=== PATIENT | female | born 1970 | race Caucasian/White ===

== ENCOUNTER 2016-09-15 16:52 | Emergency (ER) | payer MEDICAID ==
[2016-08-07 10:12] VITALS: BMI 20.6
[~2016-09-15 16:52] MED LIST: AMBIEN10 MG PO; AMOXICILLIN875 MG PO; BAYER CHEWABLE81 MG PO; COMBIVENT RESPIM4 GM INH; ELIQUIS5 MG PO; FLORAJEN3 CAPS460 MG PO; HYDROCODON-ACE1 EAC7 PO; HYDROCODONE-APA1 TAB PO; IBUPROFEN800 MG PO; MIDODRINE HCL5 MG PO; MIRALAX17 GM PO; PERCOCET 5-3251 TAB PO; PLAVIX75 MG PO; PROTONIX40 MG PO; PROZAC20 MG PO; REQUIP0.25 MG; REQUIP1 MG PO; RESTORIL15 MG PO; RESTORIL7.5 MG PO; SOMA350 MG; SOMA350 MG PO; SYMBICORT 16010.2 GM INH; VESICARE5 MG PO; [UNRECOGNIZED DRUG - OTHER]
[2016-09-15 18:07] LABS: BASOPHILS 0.7 % (0.0-2.0); EOSINOPHILS 2.4 % (0-7); HEMATOCRIT 46.7 % (36.0-48.0); HEMOGLOBIN 15.4 g/dL (12-16); IMMATURE GRANULOCYTES 0.2 % (0-5); LYMPHOCYTES 37.7 % (15-50); MCH 30.7 pg (26.0-34.0); MCV 93.2 fL (80.0-100.0); MEAN PLATELET VOLUME 10.9 fL (7.4-10.4); MONOCYTES 8.4 % (2-11); NEUTROPHILS 50.6 % (40-80); PLATELET COUNT 180 10x3/uL (130-400); RBC 5.01 10x6/uL (4.00-5.40); WBC 5.9 10x3/uL (4.8-10.8)
[2016-09-15 18:19] LABS: ALBUMIN 3.3 g/dL (3.4-5.0); ALKALINE PHOSPHATASE 40 U/L (46-116); ALT (SGPT) 18 U/L (10-68); BILIRUBIN - TOTAL 0.32 mg/dL (0.2-1.3); CALC OSMOLALITY 280 mosm/kg (275-300); CALCIUM 9.2 mg/dL (8.5-10.1); CARBON DIOXIDE 33.7 mmol/L (21.0-32.0); CHLORIDE - SERUM 105 mmol/L (98-107); CREATININE - SERUM 0.8 mg/dL (0.6-1.3); GLUCOSE 93 mg/dL (74-106); POTASSIUM - SERUM 4.2 mmol/L (3.5-5.1); SODIUM 142 mmol/L (136-145); UREA NITROGEN 8 mg/dL (7-18); eGFR NON AFRICAN AMERICAN 82 mL/min (90-120)
[2016-09-15 18:22] LABS: CREATINE KINASE 78 UL (21-215); TROPONIN-I < 0.017 ng/mL (0.000-0.060)
== END 2016-09-15 18:50 | disposition home or self-care (01) ==
LOC: D.ER 16:52
PROVIDERS: Emergency Medicine
DX: I73.9 Peripheral vascular disease, unspecified (principal)

== ENCOUNTER → 2016-09-21 12:58 | Outpatient (CLI) | payer MEDICAID ==
[2016-08-07 10:12] VITALS: BMI 20.6
== END | disposition home or self-care (01) ==
LOC: D.CT 12:58
DX: I73.9 Peripheral vascular disease, unspecified (principal)

== ENCOUNTER 2016-09-29 13:35 | Emergency (ER) | payer MEDICAID ==
[2016-08-07 10:12] VITALS: BMI 20.6
[2016-09-29 14:22] LABS: BASOPHILS 0.4 % (0.0-2.0); EOSINOPHILS 0.9 % (0-7); HEMATOCRIT 49.4 % (36.0-48.0); HEMOGLOBIN 16.7 g/dL (12-16); IMMATURE GRANULOCYTES 0.1 % (0-5); LYMPHOCYTES 32.9 % (15-50); MCHC 33.8 g/dL (31.0-37.0); MCV 91.7 fL (80.0-100.0); MEAN PLATELET VOLUME 10.8 fL (7.4-10.4); MONOCYTES 6.9 % (2-11); NEUTROPHILS 58.8 % (40-80); PLATELET COUNT 214 10x3/uL (130-400); RBC 5.39 10x6/uL (4.00-5.40); WBC 6.8 10x3/uL (4.8-10.8)
[2016-09-29 14:39] LABS: ALKALINE PHOSPHATASE 54 U/L (46-116); ALT (SGPT) 27 U/L (10-68); BILIRUBIN - TOTAL 0.61 mg/dL (0.2-1.3); CALC OSMOLALITY 275 mosm/kg (275-300); CALCIUM 10.1 mg/dL (8.5-10.1); CARBON DIOXIDE 29.9 mmol/L (21.0-32.0); CHLORIDE - SERUM 98 mmol/L (98-107); GLUCOSE 109 mg/dL (74-106); POTASSIUM - SERUM 4.8 mmol/L (3.5-5.1); PROTEIN - SERUM 8.3 g/dL (6.4-8.2); SODIUM 137 mmol/L (136-145); UREA NITROGEN 15 mg/dL (7-18); eGFR NON AFRICAN AMERICAN 63 mL/min (90-120)
[2016-09-29 14:50] LABS: CHOL - HDL RATIO 4.6 ratio (2.3-4.1); CHOLESTEROL, TOTAL 208 mg/dL (0-200); CKMB 0.3 U/L (0.0-3.6); CREATINE KINASE 44 UL (21-215); HDL CHOLESTEROL 45 mg/dL (32-96); LDL CHOLESTEROL 133 mg/dL (0-100); TRIGLYCERIDE 153 mg/dL (30-200)
[2016-09-29 14:51] LABS: TROPONIN-I < 0.017 ng/mL (0.000-0.060)
== END 2016-09-29 16:52 | disposition home or self-care (01) ==
LOC: D.ER 13:35
PROVIDERS: Emergency Medicine
DX: R07.81 Pleurodynia (principal); Z85.118 Personal history of other malignant neoplasm of bronchus and lung; I73.9 Peripheral vascular disease, unspecified; Z86.73 Personal history of transient ischemic attack (TIA), and cerebral infarction without residual deficits

== ENCOUNTER → 2016-10-01 16:38 | Outpatient (CLI) | payer MEDICAID ==
[2016-08-07 10:12] VITALS: BMI 20.6
== END | disposition home or self-care (01) ==
LOC: D.MAMMO 16:00
DX: Z12.31 Encounter for screening mammogram for malignant neoplasm of breast (principal)

== ENCOUNTER 2016-10-02 22:26 | Emergency (ER) | payer MEDICAID ==
[2016-08-07 10:12] VITALS: BMI 20.6
== END 2016-10-03 01:40 | disposition home or self-care (01) ==
LOC: D.ER 22:26
DX: I87.2 Venous insufficiency (chronic) (peripheral) (principal); Z86.73 Personal history of transient ischemic attack (TIA), and cerebral infarction without residual deficits; F17.200 Nicotine dependence, unspecified, uncomplicated

== ENCOUNTER 2016-10-03 06:59 | Outpatient (CLI) | payer MEDICAID ==
[~2016-10-03] VITALS: Ht 172.7 cm; Wt 53.6 kg
--- NOTE | ~2016-10-03 | HEMODYNAMI ---
PATIENT:TEMO CLEMENTE MEDICAL RECORD: [id number] : 70 LOCATION:[facility] ADMISSION DATE: 10/03/16 Generatedon:10/03/201611:03 Patient name: TEMO CLEMENTE Patient #: [id number] SSN: : 1970 Date of study: 10/03/2016 Page: Of Hemodynamic Procedure Report Patient Data Patient Demographics Procedure consent was obtained First Name: TEMO Gender: Female Last Name: CHYNA : 1970 [facility] Initial: A Age: 46 year(s) Patient #: [id number] Race: Unknown Additional ID: [id number] Contact details Address: [address] [place] [address] State: [place] City: [facility] Zip code: [address] Past Medical History Allergies: No known allergies Admission Admission Data Admission Date: 10/03/2016 Admission Time: 6:59 Weight (lbs.): 118 Weight (kg.): 53.52 Procedure Procedure Types Cath Procedure Peripheral Cath Diagnostic Procedure Cath Peripheral Procedure Description Procedure Date Procedure Date: 10/03/2016 Procedure Start Time: 9:39 Procedure Staff Name Function Arie Fink MD Performing Physician Philippe Ortega RT Scrub Mari Fowler RN Nurse Nallely Sims RT Auto Body Repair Estimator Nallely Sims RT Monitor Procedure Data Cath Procedure Fluoroscopy Diagnostic fluoroscopy Total fluoroscopy Time: 6.8 time: 6.8 min min Diagnostic fluoroscopy Total fluoroscopy dose: dose: 778.69 mGy 778.69 mGy Contrast Material Contrast Material Type Amount (ml) Isovue 300 175 Entry Location Entry Primary Successful Side Size Upsize Upsize Entry Closure Succes sful Closure Location (Fr) 1 (Fr) 2 (Fr) Remarks Device Remarks Femoral Right 5 Fr artery Femoral Exoseal artery Diagnostic catheters Device Type Used For End Catheter Placement Merit ULTRA BOLUS FLUSH 5Fr 65CM catheter Procedure Medications Medication Administration Route Dosage Oxygen NC 3 l/min Lidocaine 1% added to field 20 Heparin Flush Bag added to field 3 bags (1000units/500ml NS) Versed I.V. 1 mg Fentanyl I.V. 50 mcg Benadryl I.V. 50 mg Versed I.V. 1 mg Fentanyl I.V. 50 mcg Heparin Bolus I.V. 5000 units Versed I.V. 0.5 mg Fentanyl I.V. 25 mcg Versed I.V. 0.5 mg Fentanyl I.V. 25 mcg Versed I.V. 0.5 mg Fentanyl I.V. 25 mcg Hemodynamics Rest Heart Rate: 61 (bpm) Pressure Samples Time Site Value (mmHg) Purpose Heart Use Rate(bpm) 10:36 RCF 158/64(97) Snapshot 48 Snapshots Pre Cath Intra NCS Post Cath Vital Signs Time Heart Resp SPO2 NIBP (mmHg) Rhythm Pain Sedation Rate (ipm) (%) Status Level (bpm) 9:12:08 59 17 100 160/79(114) NSR 0 (11) 10(A) , No pain 9:16:28 53 19 100 162/77(128) NSR 0 (11) 10(A) , No pain 9:20:48 56 18 100 163/78(120) NSR 0 (11) 10(A) , No pain 9:26:22 67 16 100 142/70(108) NSR 0 (11) 10(A) , No pain 9:30:38 61 17 99 140/68(92) NSR 0 (11) 10(A) , No pain 9:34:56 54 18 99 125/57(86) NSR 0 (11) 10(A) , No pain 9:39:08 55 16 99 122/60(83) NSR 0 (11) 10(A) , No pain 9:43:20 53 19 99 120/57(75) NSR 0 (11) 9(A) , No pain 9:47:30 50 19 99 127/59(86) NSR 0 (11) 9(A) , No pain 9:51:42 50 19 100 133/64(84) NSR 0 (11) 9(A) , No pain 9:55:58 49 18 100 128/59(82) NSR 0 (11) 9(A) , No pain 10:00:10 54 18 100 135/61(84) NSR 0 (11) 9(A) , No pain 10:04:26 53 19 100 126/56(84) NSR 0 (11) 9(A) , No pain 10:08:38 48 19 100 131/58(87) NSR 0 (11) 9(A) , No pain 10:12:52 52 19 100 139/57(93) NSR 0 (11) 9(A) , No pain 10:17:05 48 19 100 142/67(116) NSR 0 (11) 9(A) , No pain 10:21:22 51 18 100 153/67(120) NSR 0 (11) 9(A) , No pain 10:26:33 47 16 100 147/61(86) NSR 0 (11) 9(A) , No pain 10:30:53 48 17 100 136/62(107) NSR 0 (11) 9(A) , No pain 10:35:05 48 17 100 152/70(85) NSR 0 (11) 9(A) , No pain 10:39:25 49 16 100 153/63(105) NSR 0 (11) 9(A) , No pain 10:43:43 50 18 100 152/72(111) NSR 0 (11) 9(A) , No pain 10:48:01 51 22 100 152/71(93) NSR 0 (11) 9(A) , No pain 10:52:19 47 27 100 162/65(109) NSR 0 (11) 9(A) , No pain 10:56:41 45 20 100 162/70(127) NSR 0 (11) 9(A) , No pain 11:01:06 46 13 100 155/65(98) NSR 0 (11) 9(A) , No pain Medications Time Medication Route Dose Verified Delivered Reason Notes Effe ctiveness by by 9:15:11 Oxygen NC 3 Mari Mari used for l/min Malcolm Malcolm l tacker RN 9:15:19 Lidocaine 1% added 20ml Mari Mari used for to vial Malcolm Malcolm procedure field RN RN 9:15:31 Heparin Flush added 3 Mari Mari used for Bag to bags Malcolm Malcolm procedure (1000units/500ml field RN RN NS) 9:35:09 Benadryl I.V. 50 mg Mari Mari Per Malcolm Malcolm physician RN RN 9:37:52 Versed I.V. 1 mg Mari Mari for Malcolm Malcolm sedation RN RN 9:38:00 Fentanyl I.V. 50 Mari Mari for mcg Malcolm Malcolm sedation RN RN 9:43:33 Versed I.V. 1 mg Mari Mari for Malcolm Malcolm sedation RN RN 9:43:38 Fentanyl I.V. 50 Mari Mari for mcg Malcolm Malcolm sedation RN RN 9:59:45 Heparin Bolus I.V. 5000 Mari Mari Per units Malcolm Malcolm physician RN RN 10:01:10 Versed I.V. 0.5 Mari Mari for mg Malcolm Malcolm sedation RN RN 10:01:19 Fentanyl I.V. 25 Mari Mari for mcg Malcolm Malcolm sedation RN RN 10:35:28 Versed I.V. 0.5 Mari Mari for mg Malcolm Malcolm sedation RN RN 10:35:32 Fentanyl I.V. 25 Mari Mari for mcg Malcolm Malcolm sedation RN RN 10:48:32 Versed I.V. 0.5 Mari Mari for mg Malcolm Malcolm sedation RN RN 10:48:36 Fentanyl I.V. 25 Mari Mari for mcg Malcolm Malcolm sedation RN management manager Log Time Note 9::17 Patient Weight : 118 lbs 9:03:03 Time tracking: Regular hours 9:03:12 Plan of Care:Hemodynamics will remain stable., Cardiac rhythm will remain stable., Comfort level will be maintained., Respiratory function will remain adequate., Patient/ family verbilizes understanding of procedure., Procedure tolerated without complication., Recovers from procedure without complications.. 9:03:14 Correct patient and procedure confirmed by team. 9:03:17 Signed procedure consent form obtained from patient. 9:03:26 Patient received from Outpatients to Alert and oriented. Tansferred to table in Supine position. 9:03:28 - 9:05:22 H&P Date Dictated: 10/03/2016 Within 30 days and on chart.. 9:05:25 Pre-procedure instructions explained to patient. 9:05:26 Pre-op teaching completed and patient verbalized understanding. 9:05:30 Family unavailable. 9:05:33 Patient NPO since Midnight. 9:05:50 Is the patient allergic to Iodine/contrast media? No. 9:05:56 Is patient on blood thinner?Yes 9:05:58 Patient diabetic? No. 9:06:01 - 9:06:04 ----Pre-sedation anethsthesia assessment.---- 9:06:08 Previous problem with sedation/anesthesia? No ? 9:06:12 Snore? Yes 9:06:15 Sleep apnea? No 9:06:18 Deviated septum? No 9:06:19 Opens mouth fully? Yes 9:06:25 Sticks out tongue? Yes 9:06:35 Airway obstruction? Yes lung ca 1 yr ago 9:06:42 Dentures? No ? 9:06:44 - 9:11:04 Vital chart was started 9:15:11 Oxygen 3 l/min NC was given by Mari Fowler RN; used for procedure; 9:15:19 Lidocaine 1% 20ml vial added to field was given by Mari Fowler RN; used for procedure; 9:15:31 Heparin Flush Bag (1000units/500ml NS) 3 bags added to field was given by Mari Fowler RN; used for procedure; 9::14 Pre procedure: right dorsailis pedis pulse Doppler 9:23:19 Pre procedure: left dorsailis pedis pulse Doppler 9:23:25 Pre procedure: right posterior tibial pulse Doppler 9:23:30 Pre procedure: left posterior tibial pulse Doppler 9:23:40 IV patent on arrival in left hand with 0.9% NaCl at KVO. 9:23:53 Right groin area was prepped with chlora-prep and draped in sterile fashion 9::57 Left groin area was prepped with chlora-prep and draped in sterile fashion 9::59 - 9:24:02 ECG and BP/O2 sat monitors applied to patient. 9:24:06 Baseline sample Acquired. 9::14 Full Disclosure recording started 9:24:16 - 9:24:51 Use device set IR Diagnostic 9:24:53 Sterile Angiographic Pack opened to sterile field. 9:24:54 Bag Decanter opened to sterile field. 9:24:55 Acist Manifold opened to sterile field. 9:24:56 Acist Hand Control opened to sterile field. 9:24:59 Acist Syringe opened to sterile field. 9:25:14 Cook BENTSON 145cm guide wire opened to sterile field. 9:25:16 St Kalpesh 5FR Sheath opened to sterile field. 9:25:17 Micropuncture VSI 4FR kit opened to sterile field. 9:35:01 Physician arrived 9:35:09 Benadryl 50 mg I.V. was given by Mari Fowler RN; Per physician; 9:36:12 --------ALL STOP TIME OUT------ 9:36:13 Final Timeout: patient, procedure, and site verified with staff and physician. All members of the team are in agreement. 9:36:39 Physical assessment completed. ASA score P 3 - A patient with severe systemic disease as per Arie Fink MD. 9:36:45 Sedation plan: IV Moderate Sedation Versed, Fentanyl 9:37:02 Munger Sci Amplatz Super Stiff 75CM guide wire opened to sterile field. 9:37:52 Versed 1 mg I.V. was given by Mari Fowler RN; for sedation; 9:38:00 Fentanyl 50 mcg I.V. was given by Mari Fowler RN; for sedation; 9:39:01 Procedure started. 9:39:10 Local anesthetic to right femoral artery with Lidocaine 1% by Arie Fink MD.INITIAL ACCESS ONLY 9:39:23 Arterial access obtained using ultrasound guidance. 9:40:30 A ITC ULTRA BOLUS FLUSH 5Fr 65CM catheter was advanced over the wire and used for . 9:42:59 Terumo 5FR ANGLED 65CM glide catheter opened to sterile field. 9:43:00 Terumo ANGLE 180L glide wire opened to sterile field. 9:43:11 Terumo TORQUE DEVICE PLASTIC .038 opened to sterile field. 9:43:33 Versed 1 mg I.V. was given by Mari Fowler RN; for sedation; 9:43:38 Fentanyl 50 mcg I.V. was given by Mari Fowler RN; for sedation; 9:44:48 A 5 Fr sheath was inserted into the Right Femoral artery 9:55:15 Cordis 6Fr Brite Tip 35cm Sheath opened to sterile field. 9:56:02 Cook ECKERT 260 guide wire opened to sterile field. 9:58:20 a zilver ptx stent was placed in the external iliac [id number] 9:58:45 BasixTOUCH Inflation Syringe opened to sterile field. 9:59:34 Inflation number: 1 A Cordis Powerflex Pro 5.0 x 40 x 80cm balloon was prepped and advanced across the Undefined1, then inflated to 12 LOLA for 0:11 (min:sec). 9:59:45 Heparin Bolus 5000 units I.V. was given by Mari Fowler RN; Per physician; 10:01:10 Versed 0.5 mg I.V. was given by Mari Fowler RN; for sedation; 10:01:19 Fentanyl 25 mcg I.V. was given by Mari Fowler RN; for sedation; 10:14:48 Cordis SMART 6 X 40 X 120 stent was deployed across Undefined2 . 10:35:28 Versed 0.5 mg I.V. was given by Mari Fowler RN; for sedation; 10:35:29 Zero performed for pressure channel P1 10:35:32 Fentanyl 25 mcg I.V. was given by Mari Fowler RN; for sedation; 10:35:44 Zero performed for pressure channel P1 10:37:56 Zero performed for pressure channel P1 10:39:17 Zero performed for pressure channel P1 10:42:46 Inflation number: 1 A Cordis Powerflex Pro 6.0 x 20 x 80cm balloon was prepped and advanced across the Undefined2, then inflated to 10 LOLA for 0:10 (min:sec). 10:48:32 Versed 0.5 mg I.V. was given by Mari Fowler RN; for sedation; 10:48:36 Fentanyl 25 mcg I.V. was given by Mari Fowler RN; for sedation; 10:49:05 Cordis 6Fr Exoseal opened to sterile field. 10:49:28 Sheath removed intact; hemostasis achieved with Exoseal to the Femoral artery. 10:49:28 A sheath was inserted into the Femoral artery 10:52:59 Procedure ended.(Physican Out) 10:53:22 Fluoroscopy time 06.80 minutes. 10:54:14 Fluoroscopy dose: 778.69 mGy 10:54:14 Flurop Dose total: 778.69 10:55:39 Contrast amount:Isovue 300 175ml. 10:56:09 Sharps counted by scrub and verified by R.N. 11:03:18 Procedure and supply charges have been captured, reviewed, submitted an d are correct. 11:03:37 Vital chart was stopped Intervention Summary Intervention Notes Time ActionType Lesion and Equipment Action# Pressure Duration Attributes Used 9:59:34 Inflate Undefined1 Cordis 1 12 00:11 balloon Powerflex Pro 5.0 x 40 x 80cm balloon 10:14:48 Deploy self Undefined2 Cordis 1 expanding SMART 6 X stent 40 X 120 stent 10:42:46 Inflate Undefined2 Cordis 1 10 00:10 balloon Powerflex Pro 6.0 x 20 x 80cm balloon Device Usage Item Name Manufacture Quantity Catalog Number Hospital Part Current Min imal Lot# / Charge Number Stock Stock Serial# Code Sterile Cardinal 1 [id number] 5 Angiographic Health Pack Bag Decanter Microtek 1 [id number] [id number] 63485 921453 5 Medical Inc. Acist Acist 1 62410 899629 161170 276467 5 Manifold Medical Systems Inc Acist Hand Acist 1 87904 409211 353964 658118 5 Control Medical Systems Inc Acist Syringe Acist 1 87660 527977 777256 601615 20 Medical Systems Inc Cook [facility] Cook Medical 1 [id number] 965715 339509 [id number] Kalpesh 5FR St Kalpesh 1 060499 743997 908110 5 [id number] Sheath Micropuncture VSI VASCULAR 1 7266V 697779 718608 5 VSI 4FR kit SOLUTIONS Munger Sci Munger 1 [id number] 422383 917477 008231 5 Amplatz Super Scientific Stiff 75CM guide wire Terumo 5FR Terumo 1 CG507 041651 962736 5 ANGLED 65CM glide catheter Terumo ANGLE Terumo 1 [id number] 435772 898054 5 180L glide wire Terumo TORQUE Munger 1 TD01 649556 407050 682567 5 DEVICE Scientific PLASTIC .038 Merit ULTRA Merit 1 [id number] 153991 519562 5 BOLUS FLUSH Medical 5Fr 65CM catheter Cordis 6Fr Cardinal 1 [id number] 686493 870430 496866 1 Brite Tip Health 35cm Sheath Cook [facility] Medical 1 [id number] 423622 237621 5 [id number] 260 guide wire BasixTOUCH Merit 1 [id number] 939621 264778 086043 5 [id number] Inflation Medical Syringe Cordis Cardinal 1 [id number] 102183 250893 447037 5 Powerflex Pro Health 5.0 x 40 x 80cm balloon Cordis SMART Cardinal 1 [id number] 358099 673173 984058 0 [id number] 6 X 40 X 120 Health stent Cordis Cardinal 1 [id number] 401863 014001 902301 5 Powerflex Pro Health 6.0 x 20 x 80cm balloon Cordis 6Fr Cardinal 1 EX600 602670 622835 964902 10 [facility] Signature Audit [place] Stage Time Signature Unsigned Intra-Procedure 10/03/2016 Nallely Sims 11:03:34 AM RT(R) Signatures Monitor : Nallely Sims RT Signature : Date : Time : [place] [id number] [place] [address]
[2016-10-03 07:37] VITALS: BP 138/66; Ht 172.7 cm; Wt 53.6 kg
[2016-10-03 07:54] LABS: BASOPHILS 0.5 % (0.0-2.0); HEMATOCRIT 43.1 % (36.0-48.0); HEMOGLOBIN 14.5 g/dL (12-16); IMMATURE GRANULOCYTES 0.1 % (0-5); LYMPHOCYTES 44.3 % (15-50); MCH 30.9 pg (26.0-34.0); MCHC 33.6 g/dL (31.0-37.0); MCV 91.9 fL (80.0-100.0); MEAN PLATELET VOLUME 10.8 fL (7.4-10.4); MONOCYTES 10.2 % (2-11); NEUTROPHILS 43.9 % (40-80); PLATELET COUNT 181 10x3/uL (130-400); RBC 4.69 10x6/uL (4.00-5.40); RDW 14.3 % (11.5-14.5); WBC 8.6 10x3/uL (4.8-10.8)
[2016-10-03 08:20] LABS: CALC OSMOLALITY 278 mosm/kg (275-300); CALCIUM 9.2 mg/dL (8.5-10.1); CARBON DIOXIDE 26.1 mmol/L (21.0-32.0); CHLORIDE - SERUM 105 mmol/L (98-107); CREATININE - SERUM 0.7 mg/dL (0.6-1.3); GLUCOSE 83 mg/dL (74-106); POTASSIUM - SERUM 4.5 mmol/L (3.5-5.1); SODIUM 140 mmol/L (136-145); UREA NITROGEN 14 mg/dL (7-18); eGFR NON AFRICAN AMERICAN > 90 mL/min (90-120)
[2016-10-03 08:34] LABS: APTT 29.7 SECONDS (22.8-39.4); INR 1.14 (0.85-1.17); PROTIME 14.5 SECONDS (11.6-15.0)
--- NOTE | 2016-10-03 12:30 | NUR ---
1115 RECEIVED PT FROM SPECIALS DEPARTMENT. PT IS ALERT, DENIES ANY C/O PAIN OR NAUSEA. PEDAL PULSES PALPABLE, BILAT. SMALL AREA OF BLOOD NOTED TO DRESSING AND THIS MARKED. NO HEMATOMA OR ACTIVE BLEEDING NOTED. SPRITE SERVED PER PT REQUEST. 1200 ROUNDS ON PT AND PT IS LAYING ON HER SIDE WITH LEGS BENT. REINSTRUCTED PT TO KEEP LEGS STRAIGHT AND HEAD TO PILLOW FOR THE THREE HOURS POST PROCEDURE. PT VERBALIZES UNDERSTANDING. NO HEMATOMA OR ACTIVE BLEEDING NOTED TO DRESSING.
--- NOTE | 2016-10-03 13:35 | NUR ---
1300 REPORT FROM GUDELIA HEIN R.N. PATIENT TOLD TO KEEP RT LEG STRAIGHT. AREA CIRCLED AT RIGHT GROIN AND HAS ICE PACK TO SITE PPX2 RT.
--- NOTE | 2016-10-03 14:22 | NUR ---
1415 ICE PACK REMOVED AND NO BLEEDING TO RT GROIN SITE,PPX2 RT.
--- NOTE | 2016-10-03 15:29 | NUR ---
1500 DRESSING TO RT GROIN NO BLEEDING PPX2 RT DRESSING WAS CHANGED BY RADIOLOGY NURSE EARLIER.
--- NOTE | 2016-10-03 15:30 | NUR ---
1510 IV DCD CATHETER INTACT. DISCHARGE INSTRUCTIONS GONE OVER AND RADIOLOGY NURSE WENT OVER DISCHARGE PAPERS EARLIER.
--- NOTE | 2016-10-03 15:31 | NUR ---
1522 TO HOME VIA W/C WITH FAMILY.
== END 2016-10-03 15:22 | disposition home or self-care (01) ==
LOC: D.OPS 06:59 → D.RAD 09:00 → D.OPS 09:00
PROVIDERS: General Practice
DX: I70.211 Atherosclerosis of native arteries of extremities with intermittent claudication, right leg (principal)

== ENCOUNTER 2016-10-11 10:34 | Emergency (ER) | payer MEDICAID ==
[2016-10-03 07:37] VITALS: BMI 17.9
[2016-10-11 11:15] LABS: BASOPHILS 0.5 % (0.0-2.0); EOSINOPHILS 2.3 % (0-7); HEMATOCRIT 47.2 % (36.0-48.0); HEMOGLOBIN 15.8 g/dL (12-16); IMMATURE GRANULOCYTES 0.2 % (0-5); LYMPHOCYTES 23.6 % (15-50); MCH 30.9 pg (26.0-34.0); MCHC 33.5 g/dL (31.0-37.0); MCV 92.2 fL (80.0-100.0); MONOCYTES 7.2 % (2-11); NEUTROPHILS 66.2 % (40-80); RBC 5.12 10x6/uL (4.00-5.40); RDW 14.2 % (11.5-14.5); WBC 10.5 10x3/uL (4.8-10.8)
[2016-10-11 11:20] LABS: PLATELET COUNT 248 10x3/uL (130-400)
[2016-10-11 11:39] LABS: APPEARANCE CLOUDY (CLEAR); BILIRUBIN NEGATIVE (NEGATIVE); COLOR YELLOW (YELLOW); GLUCOSE NEGATIVE (NEGATIVE); KETONE NEGATIVE (NEGATIVE); LEUKOCYTE ESTERASE 2+ (NEGATIVE); NITRITE NEGATIVE (NEGATIVE); PROTEIN NEGATIVE (NEGATIVE); SPECIFIC GRAVITY 1.025 (1.005-1.020); UROBILINOGEN NORMAL (NORMAL)
[2016-10-11 11:41] LABS: BACTERIA MANY /hpf (NONE SEEN); RED CELLS - URINE 0-5 /hpf (0-5); WHITE CELLS - URINE 25-50 /hpf (0-5); YEAST >1+ WITH HYPHAE /hpf (NONE SEEN)
[2016-10-11 11:43] LABS: ALBUMIN 3.8 g/dL (3.4-5.0); ANION GAP 10.8 mmol/L (8-16); BILIRUBIN - TOTAL 0.8 mg/dL (0.2-1.3); CALCIUM 9.4 mg/dL (8.5-10.1); CARBON DIOXIDE 32.8 mmol/L (21.0-32.0); POTASSIUM - SERUM 3.6 mmol/L (3.5-5.1); PROTEIN - SERUM 7.9 g/dL (6.4-8.2)
== END 2016-10-11 12:49 | disposition left against medical advice (07) ==
LOC: D.ER 10:34
PROVIDERS: Emergency Medicine
DX: R11.2 Nausea with vomiting, unspecified (principal)

== ENCOUNTER → 2016-11-02 13:32 | Outpatient (CLI) | payer MEDICAID ==
[2016-10-03 07:37] VITALS: BMI 17.9
[2016-11-02 17:06] LABS: CHOL - HDL RATIO 4.1 ratio (2.3-4.1); LDL-HDL RATIO 2.7 ratio (1.5-3.5)
== END | disposition home or self-care (01) ==
LOC: D.CT 13:32
PROVIDERS: General Practice
DX: I70.203 Unspecified atherosclerosis of native arteries of extremities, bilateral legs (principal)

== ENCOUNTER → 2016-11-16 12:18 | Outpatient (CLI) | payer MEDICAID ==
[2016-10-03 07:37] VITALS: BMI 17.9
== END | disposition home or self-care (01) ==
LOC: D.CT 10:30
DX: A31.0 Pulmonary mycobacterial infection (principal)

== ENCOUNTER → 2017-05-06 08:19 | Outpatient (CLI) | payer MEDICAID ==
[2016-10-03 07:37] VITALS: BMI 17.9
== END | disposition home or self-care (01) ==
LOC: D.RT 08:19
DX: C34.90 Malignant neoplasm of unspecified part of unspecified bronchus or lung (principal)

== ENCOUNTER → 2017-07-08 13:54 | Outpatient (CLI) | payer MEDICARE ==
[2016-10-03 07:37] VITALS: BMI 17.9
== END | disposition home or self-care (01) ==
LOC: D.CT 13:54
DX: I73.9 Peripheral vascular disease, unspecified (principal)

== ENCOUNTER → 2017-08-19 09:20 | Outpatient (CLI) | payer MEDICARE ==
[2016-10-03 07:37] VITALS: BMI 17.9
== END | disposition home or self-care (01) ==
LOC: D.CT 09:20
DX: C34.91 Malignant neoplasm of unspecified part of right bronchus or lung (principal)

== ENCOUNTER → 2017-10-28 11:23 | Outpatient (CLI) | payer MEDICARE, MEDICAID ==
[2016-10-03 07:37] VITALS: BMI 17.9
== END | disposition home or self-care (01) ==
LOC: D.RAD 11:23
DX: R06.02 Shortness of breath (principal); C34.90 Malignant neoplasm of unspecified part of unspecified bronchus or lung

== ENCOUNTER → 2017-11-01 10:00 | Outpatient (CLI) | payer MEDICARE, MEDICAID ==
[2016-10-03 07:37] VITALS: BMI 17.9
[~2017-11-01 10:00] MED LIST changes: +DESERYL100 MG PO
== END | disposition home or self-care (01) ==
LOC: D.CT 10:00
DX: G81.92 Hemiplegia, unspecified affecting left dominant side (principal); I73.9 Peripheral vascular disease, unspecified

== ENCOUNTER 2017-11-15 06:38 | Outpatient (CLI) | payer MEDICARE, MEDICAID ==
[~2017-11-15] VITALS: Ht 172.7 cm; Wt 68.2 kg
--- NOTE | ~2017-11-15 | HEMODYNAMI ---
PATIENT:TEMO CLEMENTE MEDICAL RECORD: [id number] : 70 LOCATION:[facility] ADMISSION DATE: 11/15/17 Generatedon:11/15/201711:09 Patient name: TEMO CLEMENTE Patient #: [id number] SSN: : 1970 Date of study: 11/15/2017 Page: Of Hemodynamic Procedure Report Patient Data Patient Demographics Procedure consent was obtained First Name: TEMO Gender: Female Last Name: CHYNA : 1970 [facility] Initial: A Age: 47 year(s) Patient #: [id number] Race: Unknown Additional ID: [id number] Contact details Address: [address] [place] [address] State: [place] City: [facility] Zip code: [address] Past Medical History Allergies: No known allergies Admission Admission Data Admission Date: 11/15/2017 Admission Time: 6:38 Weight (lbs.): 150 Weight (kg.): 68.04 Procedure Procedure Types Cath Procedure Peripheral Cath Diagnostic Procedure Cath Peripheral Abd/Extremity Extremities Bilat Lower Extremity Procedure Description Procedure Date Procedure Date: 11/15/2017 Procedure Start Time: 9:24 Procedure Staff Name Function Arie Fink MD Performing Physician Nallely Sims RT Delta System Freight Car Cleaner Nallely Sims RT Monitor Philippe Ortega RT Scrub Tonya Edge RN Nurse Doris Minor RN Nurse Procedure Data Cath Procedure Fluoroscopy Diagnostic fluoroscopy Total fluoroscopy Time: 8.5 time: 8.5 min min Diagnostic fluoroscopy Total fluoroscopy dose: dose: 1699 mGy 1699 mGy Contrast Material Contrast Material Type Amount (ml) Isovue 300 200 Entry Location Entry Primary Successful Side Size Upsize Upsize Entry Closure Succes sful Closure Location (Fr) 1 (Fr) 2 (Fr) Remarks Device Remarks Femoral Left 5 Fr artery Procedure Medications Medication Administration Route Dosage Heparin Flush Bag 3 bags (1000units/500ml NS) Oxygen NC 3 l/min Lidocaine 1% added to field 20 Versed I.V. 1 mg Fentanyl I.V. 50 mcg Versed I.V. 1 mg Benadryl I.V. 50 mg Fentanyl I.V. 50 mcg Heparin Bolus I.V. 5000 units Nitroglycerin IC/IA I.A. 200 Nitroglycerin IC/IA I.A. 200 Hemodynamics Rest Heart Rate: 59 (bpm) Snapshots Pre Cath Intra NCS Post Cath Vital Signs Time Heart Resp SPO2 etCO2 NIBP (mmHg) Rhythm Pain Sedation Rate (ipm) (%) (mmHg) Status Level (bpm) 8:50:02 59 7 97 24.6 141/70(102) NSR 0 (11) 10(A) , No pain 8:54:25 58 18 98 41.9 133/65(100) NSR 0 (11) 10(A) , No pain 8:59:24 58 32 98 29.1 Measuring NSR 0 (11) 10(A) , No pain 8:59:28 57 27 99 36.6 131/115(125) NSR 0 (11) 10(A) , No pain 9:03:46 57 23 98 32.8 132/72(106) NSR 0 (11) 10(A) , No pain 9:08:45 55 25 98 22.4 Measuring NSR 0 (11) 10(A) , No pain 9:08:57 54 17 98 38.1 138/65(116) NSR 0 (11) 10(A) , No pain 9:13:15 66 26 97 30.6 94/78(86) NSR 0 (11) 10(A) , No pain 9:18:14 54 15 97 28.4 138/64(113) NSR 0 (11) 10(A) , No pain 9:22:38 58 42 97 38.8 119/53(87) NSR 0 (11) 8(A) , No pain 9:26:59 56 22 98 14.9 101/48(73) NSR 0 (11) 8(A) , No pain 9:31:58 55 31 98 40.3 Measuring NSR 0 (11) 8(A) , No pain 9:32:02 56 31 98 41.1 108/48(83) NSR 0 (11) 8(A) , No pain 9:36:16 55 16 99 38.8 108/53(83) NSR 0 (11) 8(A) , No pain 9:40:32 54 7 99 39.6 104/45(72) NSR 0 (11) 8(A) , No pain 9:44:44 59 25 99 41.1 102/53(74) NSR 0 (11) 8(A) , No pain 9:49:43 54 7 98 38.1 110/49(71) NSR 0 (11) 8(A) , No pain 9:53:55 55 8 98 39.6 113/58(85) NSR 0 (11) 8(A) , No pain 9:58:05 62 58 99 42.6 101/58(78) NSR 0 (11) 8(A) , No pain 10:02:13 59 6 98 43.3 114/56(87) NSR 0 (11) 8(A) , No pain 10:06:24 63 6 98 41.1 94/46(66) NSR 0 (11) 8(A) , No pain 10:11:23 55 6 98 39.6 113/53(78) NSR 0 (11) 8(A) , No pain 10:15:33 57 6 98 40.3 77/45(61) NSR 0 (11) 8(A) , No pain 10:16:53 57 6 98 40.3 88/40(65) NSR 0 (11) 8(A) , No pain 10:18:48 56 9 98 41.1 90/46(63) NSR 0 (11) 8(A) , No pain 10:22:54 54 6 99 44.1 103/51(78) NSR 0 (11) 8(A) , No pain 10:27:04 55 6 99 42.6 103/51(75) NSR 0 (11) 8(A) , No pain 10:32:03 56 57 99 41.1 134/73(112) NSR 0 (11) 8(A) , No pain 10:36:23 59 55 99 1.4 133/61(95) NSR 0 (11) 8(A) , No pain 10:40:41 55 25 99 32.1 115/65(93) NSR 0 (11) 8(A) , No pain 10:44:48 53 6 99 42.6 129/74(112) NSR 0 (11) 8(A) , No pain 10:49:00 51 27 99 41.8 129/73(112) NSR 0 (11) 8(A) , No pain 10:53:23 68 12 99 20.9 147/51(55) NSR 0 (11) 8(A) , No pain 10:57:45 54 34 100 47.8 159/76(131) NSR 0 (11) 8(A) , No pain 11:02:11 49 15 100 40.3 125/62(104) NSR 0 (11) 8(A) , No pain 11:06:25 49 14 100 35.8 136/67(101) NSR 0 (11) 8(A) , No pain Medications Time Medication Route Dose Verified Delivered Reason Notes Eff ectiveness by by 8:55:17 Heparin Flush 3 bags Doris Doris used for Bag Iván Minor systems software developer (1000units/500ml RN NS) 8:55:49 Oxygen NC 3 Doris Doris used for l/min Iván Minor systems software developer RN 8:56:13 Lidocaine 1% added 20ml Doris Doris for local to vial Iván Minor RN anesthetic field RN 9:21:49 Versed I.V. 1 mg Arie Doris for Iván Fink RN sedation 9:22:01 Fentanyl I.V. 50 mcg Arie Doris for Iván Fink RN sedation 9:33:43 Versed I.V. 1 mg Arie Doris for Iván Fink RN sedation 9:33:53 Benadryl I.V. 50 mg Arie Doris Iván Fink RN, MD 9:50:59 Fentanyl I.V. 50 mcg Arie Changody for Iván Fink RN sedation 9:55:35 Heparin Bolus I.V. 5000 Arie Doris units Iván Fink RN, MD 10:04:18 Nitroglycerin I.A. 200MCG Arie BURCH/IA Danae Fink MD MD 10:38:43 Nitroglycerin I.A. 200MCG Arie BURCH/Danae Burger MD MD Procedure Log Time Note 8:32:32 Patient Weight : 150 lbs 8:33:40 Use device set IR Diagnostic 8:41:29 Sterile Angiographic Pack opened to sterile field. 8:41:29 Bag Decanter (2002S) opened to sterile field. 8:41:30 ACIST Manifold (11979) opened to sterile field. 8:41:31 ACIST Hand Control (32068) opened to sterile field. 8:41:32 ACIST Syringe (73451) opened to sterile field. 8:41:33 TUBING Contrast Injection High Pressure (SIK040X) opened to sterile field. 8:41:34 ECKERT 260 wire (V18967) opened to sterile field. 8:41:35 DOC .035 wire (O56694) opened to sterile field. 8:41:36 SHEATH 5FR [place] (HLT105) opened to sterile field. 8:41:37 Micropuncture VSI 4FR kit opened to sterile field. 8:41:44 Time tracking: Regular hours 8:41:51 Plan of Care:Hemodynamics will remain stable., Cardiac rhythm will remain stable., Comfort level will be maintained., Respiratory function will remain adequate., Patient/ family verbilizes understanding of procedure., Procedure tolerated without complication., Recovers from procedure without complications.. 8:42:11 Patient received from Outpatients to IR Alert and oriented. Tansferred to table in Supine position. 8:42:13 Correct patient and procedure confirmed by team. 8:42:15 Signed procedure consent form obtained from patient. 8:42:22 H&P Date Dictated: 11/15/2017 Within 30 days and on chart.. 8:42:25 Pre-procedure instructions explained to patient. 8:42:25 Pre-op teaching completed and patient verbalized understanding. 8:42:28 Family in waiting room. 8:42:31 Patient NPO since Midnight. 8:42:32 - 8:48:45 ECG and BP/O2 sat monitors applied to patient. 8:48:46 Vital chart was started 8:48:48 Baseline sample Acquired. 8:48:51 Full Disclosure recording started 8:48:51 - 8:49:20 Patient allergic to No known allergies 8:49:23 Is the patient allergic to Iodine/contrast media? No. 8:49:26 Is patient on blood thinner?Yes 8:49:41 ACC The patient was administered the following blood thiners within the last 24 hours: ACCAspirin, ACCPlavix, Eliquis 8:49:46 Patient diabetic? No. 8:49:50 - 8:49:50 ----Pre-sedation anethsthesia assessment.---- 8:49:55 Previous problem with sedation/anesthesia? No ? 8:50:03 Snore? Yes 8:50:07 Sleep apnea? No 8:50:09 Deviated septum? No 8:50:14 Opens mouth fully? Yes 8:50:22 Sticks out tongue? Yes 8:50:34 Airway obstruction? Yes copd, emphysema 8:50:55 Dentures? No ? 8:50:57 - 8:51:01 Pre procedure: right dorsailis pedis pulse Doppler 8:51:06 Pre procedure: left dorsailis pedis pulse Doppler 8:51:10 Pre procedure: right posterior tibial pulse Doppler 8:51:14 Pre procedure: left posterior tibial pulse Doppler 8:51:35 IV patent on arrival in left wrist with D5/.45%NaCl at KVO. 8:51:44 Left groin area was prepped with chlora-prep and draped in sterile fashion 8:51:50 Right groin area was prepped with chlora-prep and draped in sterile fashion 8:51:52 - 8:52:10 Angiodynamics Omniflush 5Fr 65cm ([id number]) opened to sterile field. 8:54:29 - 8:55:17 Heparin Flush Bag (1000units/500ml NS) 3 bags was administered by Elissa Minor RN; used for procedure; 8:55:49 Oxygen 3 l/min NC was administered by Doris Minor RN; used for procedure; 8:56:13 Lidocaine 1% 20ml vial added to field was administered by Doris Minor RN; for local anesthetic; 8:56:16 - 9:19:01 Physician arrived 9:21:20 --------ALL STOP TIME OUT------ 9::21 Final Timeout: patient, procedure, and site verified with staff and physician. All members of the team are in agreement. ::44 Sedation plan: IV Moderate Sedation Medication:Versed, Fentanyl 9::49 Versed 1 mg I.V. was administered by Doris Minor RN; for sedation; 9:22:01 Fentanyl 50 mcg I.V. was administered by Doris Minor RN; for sedation ; 9:24:41 Procedure started. 9:24:47 Local anesthetic to left femerol artery with Lidocaine 1% by Arie Fink MD.INITIAL ACCESS ONLY 9:33:24 GLIDE WIRE ANGLE 180cm (MF6447) opened to sterile field. 9:33:31 TORQUE DEVICE PLASTIC .038 ( TD01) opened to sterile field. 9:33:43 Versed 1 mg I.V. was administered by Doris Minor RN; for sedation; 9:33:53 Benadryl 50 mg I.V. was administered by Doris Minor RN; ; 9:34:24 GLIDE CATHETER 5FR ANGLED 65cm (CG507) opened to sterile field. 9:35:54 Arterial access obtained using ultrasound guidance. 9:36:06 A 5 Fr sheath was inserted into the Left Femoral artery 9:50:59 Fentanyl 50 mcg I.V. was administered by Doris Minor RN; for sedation ; 9:55:35 Heparin Bolus 5000 units I.V. was administered by Doris Minor RN; ; 9:58:31 Inflation number: 1 A POWERFLEX PRO 4.0 x 40 x 135cm balloon ([id number]) was prepped and advanced across the Undefined1, then inflated 10:04:18 Nitroglycerin IC/IA 200MCG I.A. was administered by Arie Fink MD; ; 10:06:01 Cordis 6Fr BRITE TIP 11cm sheath opened to sterile field. 10:08:04 Inflation number: 2 A IN.PACT Admiral 5 x 80 x 130 DCB Balloon ([id number]) was prepped and advanced across the Undefined1, then inflated to 0 LOLA for 0:00 (min:sec). 10:30:15 Inflation number: 3 A POWERFLEX PRO 6.0 x 40 x 135cm balloon ([id number]) was prepped and advanced across the Undefined1, then inflated 10:38:43 Nitroglycerin IC/IA 200MCG I.A. was administered by Arie Fink MD; ; 10:50:13 Procedure ended.(Physican Out) 10:51:34 Fluoroscopy time 08.50 minutes. 10:51:38 Fluoroscopy dose: 1699 mGy 10:51:38 Flurop Dose total: 1699 10:51:43 Contrast amount:Isovue 300 200ml. 10:51:46 Procedure and supply charges have been captured, reviewed, submitted an d are correct. 10:54:10 Post Procedure Pulses reassessed and unchanged 10:54:15 Report given to Outpatients. 11:09:49 Vital chart was stopped Intervention Summary Intervention Notes Time ActionType Lesion and Equipment Used Action# Pressure Duration Attributes 9:58:31 Inflate Undefined1 POWERFLEX PRO 1 0 00:00 balloon 4.0 x 40 x 135cm balloon ([id number]) 10:08:04 Inflate Undefined1 IN.PACT 2 0 00:00 balloon Admiral 5 x 80 x 130 DCB Balloon ([id number]) 10:30:15 Inflate Undefined1 POWERFLEX PRO 3 0 00:00 balloon 6.0 x 40 x 135cm balloon ([id number]) Device Usage Item Name Manufacture Quantity Catalog Hospital Part Current [facility] Lot# / Number Charge Number Stock Stock Serial# Code Sterile Cardinal [address] 216966 546008 5 Angiographic Health Pack Bag Decanter Microtek 1 2001S 815201 37768 117021 5 (2001S) Medical Inc. ACIST Manifold Acist Medical 1 70881 575300 586156 751131 5 (62025) Systems Inc ACIST Hand Acist Medical 1 95950 990125 151631 963000 5 Control Systems Inc (15232) ACIST Syringe Acist Medical 1 35059 328793 100924 783457 20 (24588) Systems Inc TUBING [facility] Medical 1 [id number] 791812 951525 745040 5 Contrast Injection High Pressure ([id number]) ECKERT 260 wire [employer] 1 F36138 044531 375168 5 9233520 (S52574) DOC .035 wire [employer] 1 E20865 427005 736471 5 4815000 (F94348) SHEATH 5FR Terumo 1 GAL585 471538 241623 383800 40 [place] (XZA047) Micropuncture VSI VASCULAR 1 7266V 358844 946384 5 VSI 4FR kit SOLUTIONS Angiodynamics Angiodynamics 1 35633100 441982 999692 691535 5 Omniflush 5Fr 65cm ([id number]) GLIDE WIRE Terumo 1 AR4903 945225 003733 898900 5 ANGLE 180cm (JB1803) TORQUE DEVICE [place] 1 TD01 059379 819113 433221 5 PLASTIC .038 ( Scientific TD01) GLIDE CATHETER Terumo 1 CG507 946955 848061 5 5FR ANGLED 65cm (CG507) POWERFLEX PRO Cardinal 1 [id number] 600534 388601 549004 5 4.0 x 40 x Health 135cm balloon ([id number]) IN.PACT Medtronic 1 [id number] 369745 968212 749221 5 [id number] Admiral 5 x 80 x 130 DCB Balloon ([id number]) Cordis 6Fr Cardinal 1 [id number] 917205 637506 5 BRITE TIP 11cm Health sheath POWERFLEX PRO Cardinal 1 [id number] 317541 791455 452606 5 6.0 x 40 x Health 135cm balloon ([id number]) Signature Audit Voca Stage Time Signature Unsigned Intra-Procedure 11/15/2017 Nallely Sims 11:09:46 AM RT(R) Signatures Monitor : Nallely Sims RT Signature : Date : Time : [facility] [address] [facility] [place] [address]
[~2017-11-15 06:38] MED LIST changes: -DESERYL100 MG PO
[2017-11-15 07:23] LABS: BASOPHILS 0.6 % (0-2); EOSINOPHILS 2.4 % (0-7); HEMOGLOBIN 12.4 g/dL (12-16); IMMATURE GRANULOCYTES 0.1 % (0-5); LYMPHOCYTES 32.6 % (15-50); MCH 30.6 pg (26.0-34.0); MCHC 32.6 g/dL (31.0-37.0); MCV 93.8 fL (80.0-100.0); MEAN PLATELET VOLUME 10.6 fL (7.4-10.4); MONOCYTES 9.9 % (2-11); NEUTROPHILS 54.4 % (40-80); RBC 4.05 10x6/uL (4.00-5.40); RDW 14.3 % (11.5-14.5); WBC 7.2 10x3/uL (4.8-10.8)
[2017-11-15 07:24] LABS: PLATELET COUNT 179 10x3/uL (130-400)
[2017-11-15] MEDS ORDERED: DESERYL100 MG PO (07:29)
[2017-11-15 07:37] LABS: CALC OSMOLALITY 281 mosm/kg (275-300); CALCIUM 8.4 mg/dL (8.5-10.1); CARBON DIOXIDE 24.2 mmol/L (21.0-32.0); CHLORIDE - SERUM 105 mmol/L (98-107); CREATININE - SERUM 0.8 mg/dL (0.6-1.3); GLUCOSE 108 mg/dL (74-106); POTASSIUM - SERUM 3.8 mmol/L (3.5-5.1); SODIUM 139 mmol/L (136-145); UREA NITROGEN 20 mg/dL (7-18); eGFR NON AFRICAN AMERICAN 81 mL/min (90-120)
[2017-11-15 07:39] VITALS: BP 113/57; Ht 172.7 cm; Wt 68.2 kg
[2017-11-15 07:52] LABS: APTT 30.7 SECONDS (22.8-39.4); INR 1.18 (0.85-1.17); PROTIME 14.6 SECONDS (11.6-15.0)
== END 2017-11-15 17:35 | disposition home or self-care (01) ==
LOC: D.SP 06:38 → D.OPS 06:38 → D.RAD 08:00 → D.OPS 09:00 → D.RAD 09:00 → D.SP 17:35
PROVIDERS: General Practice
DX: I70.202 Unspecified atherosclerosis of native arteries of extremities, left leg (principal); Z01.812 Encounter for preprocedural laboratory examination

== ENCOUNTER 2017-11-17 11:34 | Emergency (ER) | payer MEDICARE, MEDICAID ==
[2017-11-15 07:39] VITALS: BMI 22.8
[~2017-11-17 11:34] MED LIST changes: +DESERYL100 MG PO
== END 2017-11-17 16:17 | disposition home or self-care (01) ==
LOC: D.ER 11:34
DX: M79.652 Pain in left thigh (principal); Z98.890 Other specified postprocedural states

== ENCOUNTER → 2018-02-10 11:08 | Outpatient (CLI) | payer MEDICARE, MEDICAID ==
[2017-11-15 07:39] VITALS: BMI 22.8
== END | disposition home or self-care (01) ==
LOC: D.US 02-06 11:30
DX: C34.90 Malignant neoplasm of unspecified part of unspecified bronchus or lung (principal); J44.9 Chronic obstructive pulmonary disease, unspecified

== ENCOUNTER → 2018-06-23 13:28 | Outpatient (CLI) | payer MEDICARE, MEDICAID ==
[2017-11-15 07:39] VITALS: BMI 22.8
== END | disposition home or self-care (01) ==
LOC: D.RAD 13:28
DX: C34.91 Malignant neoplasm of unspecified part of right bronchus or lung (principal)

== ENCOUNTER → 2018-09-29 15:27 | Outpatient (CLI) | payer MEDICARE, MEDICAID ==
[2017-11-15 07:39] VITALS: BMI 22.8
== END | disposition home or self-care (01) ==
LOC: D.RAD 15:27
DX: C34.90 Malignant neoplasm of unspecified part of unspecified bronchus or lung (principal)

== ENCOUNTER → 2018-10-03 15:47 | Outpatient (CLI) | payer MEDICARE, MEDICAID ==
[2017-11-15 07:39] VITALS: BMI 22.8
== END | disposition home or self-care (01) ==
LOC: D.CT 15:30
DX: I73.9 Peripheral vascular disease, unspecified (principal)

== ENCOUNTER → 2018-10-21 14:44 | Outpatient (CLI) | payer MEDICARE, MEDICAID ==
[2017-11-15 07:39] VITALS: BMI 22.8
== END | disposition home or self-care (01) ==
LOC: D.CT 14:44
DX: C34.91 Malignant neoplasm of unspecified part of right bronchus or lung (principal)

== ENCOUNTER 2018-11-28 07:48 | Observation (INO) | payer MEDICARE, MEDICAID ==
[~2018-11-28] VITALS: Ht 172.7 cm; Wt 66.8 kg
--- NOTE | ~2018-11-28 | HEMODYNAMI ---
PATIENT:TEMO CLEMENTE MEDICAL RECORD: [id number] : 70 LOCATION:[facility] ADMISSION DATE: 11/28/18 Generatedon:11/28/201812:23 Patient name: TEMO CLEMENTE Patient #: [id number] SSN: : 1970 Date of study: 11/28/2018 Page: Of Hemodynamic Procedure Report Patient Data Patient Demographics Procedure consent was obtained First Name: TEMO Gender: Female Last Name: CHYNA : 1970 [facility] Initial: A Age: 48 year(s) Patient #: [id number] Race: Unknown Additional ID: [id number] Contact details Address: [address] [place] [address] State: [place] [facility] [place]: [address] Past Medical History Allergies: No known allergies Admission Admission Data Admission Date: 11/28/2018 Admission Time: 7:48 Procedure Procedure Types Cath Procedure Peripheral Cath Diagnostic Procedure Abd/Extremity Extremities Procedure Description Procedure Date Procedure Date: 11/28/2018 Procedure Start Time: 11:10 Procedure Staff Name Function Arie Fink MD Performing Physician Philippe Ortega RT Monitor Zuleika Minor RN Nurse Procedure Data Cath Procedure Fluoroscopy Diagnostic fluoroscopy Total fluoroscopy Time: 1.8 time: 1.8 min min Diagnostic fluoroscopy Total fluoroscopy dose: 62 dose: 62 mGy mGy Procedure Medications Medication Administration Route Dosage Heparin Flush Bag added to field 3 bags (1000units/500ml NS) Lidocaine 1% added to field 20 Fentanyl I.V. 50 mcg Versed I.V. 1 mg Versed I.V. 1 mg Fentanyl I.V. 50 mcg Benadryl I.V. 50 mg Solumedrol I.V. 125 mg Benadryl I.V. 50 mg Hemodynamics Rest Heart Rate: 49 (bpm) Snapshots Pre Cath Intra NCS Post Cath Vital Signs Time Heart Resp SPO2 etCO2 NIBP (mmHg) Rhythm Pain Status Sedation Rate (ipm) (%) (mmHg) Level (bpm) 11:00:15 45 11 0 138/63(119) NSR 0 (11) , No 10(A) pain 11:04:29 43 29 100 33.1 156/73(128) NSR 0 (11) , No 10(A) pain 11:09:29 50 22 100 26.3 Measuring NSR 0 (11) , No 9(A) pain 11:09:53 50 29 100 27.8 159/71(116) NSR 0 (11) , No 9(A) pain 11:14:13 54 17 100 29.3 151/72(126) NSR 2 (11) , 8(A) Uncomfortable 11:19:12 50 8 32.3 Measuring NSR 2 (11) , 8(A) Uncomfortable 11:19:53 52 19 98 36.8 124/60(87) NSR 1 (11) , Very 8(A) mild 11:24:52 47 28 99 39.1 Measuring NSR 1 (11) , Very 8(A) mild 11:26:16 49 6 99 39.1 Time NSR 0 (11) , No 8(A) Exceeded pain 11:29:55 52 8 98 32.3 139/62(114) NSR 0 (11) , No 8(A) pain 11:34:09 58 8 95 37.6 135/68(98) NSR 0 (11) , No 8(A) pain 11:38:25 49 7 99 30.1 136/60(95) NSR 0 (11) , No 8(A) pain 11:42:33 88 11 100 35.3 73/40(57) NSR 0 (11) , No 8(A) pain 11:46:12 102 8 100 27 82/47(58) NSR 0 (11) , No 8(A) pain 11:50:12 133 20 100 12 76/49(60) NSR 0 (11) , No 8(A) pain 11:54:03 139 18 99 21.8 69/47(56) NSR 0 (11) , No 8(A) pain 11:56:12 134 14 100 25.5 67/50(61) NSR 0 (11) , No 8(A) pain 11:58:03 129 16 99 13.5 73/52(60) NSR 0 (11) , No 8(A) pain 11:59:17 127 10 98 22.5 81/53(67) NSR 0 (11) , No 8(A) pain 12:00:57 120 17 99 26.3 86/56(72) NSR 0 (11) , No 8(A) pain 12:02:07 117 17 99 11.2 83/50(65) NSR 0 (11) , No 8(A) pain 12:06:06 112 19 95 0 85/49(72) NSR 0 (11) , No 8(A) pain 12:10:06 107 14 93 0 84/53(67) NSR 0 (11) , No 8(A) pain 12:14:06 97 13 99 27.8 96/52(71) NSR 0 (11) , No 8(A) pain 12:18:07 91 16 99 20.3 105/58(74) NSR 0 (11) , No 8(A) pain 12:22:01 89 15 15 No Cuff NSR 0 (11) , No 8(A) pain Medications Time Medication Route Dose Verified Delivered Reason Notes Effe ctiveness by by 11:11:24 Heparin Flush added 3 Arie Sargent used for Bag to bags Danae Fink MD procedure (1000units/500ml field LINK NS) 11:11:36 Lidocaine 1% added 20ml Arie Sargent for local to vial Danae Fink MD anesthetic field LINK 11:11:48 Fentanyl I.V. 50 Arie George for mcg Iván Fink RN sedation 11:11:58 Versed I.V. 1 mg Arie George for Iván Fink RN sedation 11:14:00 Versed I.V. 1 mg Arie George for Iván Fink RN sedation 11:14:07 Fentanyl I.V. 50 Arie George for mcg Iván Fink RN sedation 11:28:18 Benadryl I.V. 50 mg Arie George for Iván Fink RN sedation 11:39:52 Solumedrol I.V. 125 Arie George itching mg Iván Fink RN, MD 11:51:47 Benadryl I.V. 50 mg Arie Iván Cruz RN allergic MD reaction Procedure Log Time Note 10:40:11 Doris Minor RN sent for patient. Start room use. 10:40:18 Time tracking: Regular hours (M-F 7:00 - 5:00) 10:40:24 Plan of Care:Hemodynamics will remain stable., Cardiac rhythm will remain stable., Comfort level will be maintained., Respiratory function will remain adequate., Patient/ family verbilizes understanding of procedure., Procedure tolerated without complication., Recovers from procedure without complications.. 10:40:30 Patient received from Outpatients to IR Alert and oriented. Tansferred to table in Supine position. 10:40:31 Correct patient and procedure confirmed by team. 10:40:33 Signed procedure consent form obtained from patient. 10:40:34 ECG and BP/O2 sat monitors applied to patient. 10:40:35 Full Disclosure recording started 10:40:35 - 10:40:39 H&P Date Dictated: 11/28/2018 H&P Addendum completed by physician on day of procedure. (MUST COMPLETE FOR ALL OUTPATIENTS). 10:40:40 Pre-procedure instructions explained to patient. 10:40:40 Pre-op teaching completed and patient verbalized understanding. 10:40:48 Use device set IR Diagnostic 10:40:49 ACIST Syringe (82523) opened to sterile field. 10:40:50 ACIST Hand Control (53932) opened to sterile field. 10:40:50 ACIST Manifold (93480) opened to sterile field. 10:40:50 Bag Decanter (2001S) opened to sterile field. 10:40:51 Sterile Angiographic Pack opened to sterile field. 10:40:51 Tegaderm 4 x 4 (1626W) opened to sterile field. 10:42:41 Family unavailable. 10:42:47 Is patient on blood thinner?Yes 10:43:04 ACC The patient was administered the following blood thiners within the last 24 hours: ACCPlavix 10:43:08 Patient diabetic? No. 10:43:10 - 10:43:12 ----Pre-sedation anethsthesia assessment.---- 10:43:14 Previous problem with sedation/anesthesia? No ? 10:43:19 Snore? Yes 10:43:21 Sleep apnea? No 10:43:22 Deviated septum? No 10:43:24 Opens mouth fully? Yes 10:43:25 Sticks out tongue? Yes 10:43:27 Airway obstruction? No ? 10:43:32 Dentures? No ? 10:52:55 Pre procedure: right dorsailis pedis pulse 1+ Palpable, but thready & weak; easily obliterated 10:52:57 Pre procedure: left dorsailis pedis pulse Doppler 10:53:02 Pre procedure: right posterior tibial pulse 1+ Palpable, but thready & weak; easily obliterated 10:53:06 Pre procedure: left posterior tibial pulse Doppler 10:53:07 Sharps counted by scrub and verified by Susie 10:53:09 Alarms reviewed by Iliana Vega. 10:53:37 IV patent on arrival in left hand with 0.9% NaCl at KVO. 10:59:16 Vital chart was started 10:59:17 Baseline sample Acquired. 11:03:54 Bilateral groins area was prepped with chlora-prep and draped in steril e fashion 11:05:41 Is the patient allergic to Iodine/contrast media? Yes. 11:05:44 Was the patient premedicated? Yes 11:06:14 Physician arrived 11:06:15 --------ALL STOP TIME OUT------ 11:06:15 Final Timeout: patient, procedure, and site verified with staff and physician. All members of the team are in agreement. 11:06:17 Bilateral groins site verified by team. 11:06:24 Fire Safety Assessment: A--An alcohol-based skin anteseptic being used preoperatively., C--Open oxygen or nitrous oxide is being used. 11:06:30 Sedation plan: IV Moderate Sedation Medication:Versed, Fentanyl 11:10:01 Procedure started. 11:10:06 Local anesthetic to left femerol artery with Lidocaine 1% by Arie Fink MD.INITIAL ACCESS ONLY 11:10:09 Access obtained with 4Fr micropunture. 11:10:23 DOC .035 wire (I80461) opened to sterile field. 11:10:23 SHEATH 5FR [place] (QHU929) opened to sterile field. 11:10:24 Micropuncture VSI 4FR kit opened to sterile field. 11:10:24 Angiodynamics Omniflush 5Fr 65cm (10013102) opened to sterile field. 11:10:24 TUBING Contrast Injection High Pressure ([id number]) opened to sterile field. 11:11:24 Heparin Flush Bag (1000units/500ml NS) 3 bags added to field was administered by Arie Fink MD; used for procedure; 11:11:36 Lidocaine 1% 20ml vial added to field was administered by Arie Fink MD; for local anesthetic; 11:11:48 Fentanyl 50 mcg I.V. was administered by Doris Minor RN; for sedation ; 11:11:58 Versed 1 mg I.V. was administered by Doris Minor RN; for sedation; 11:14:00 Versed 1 mg I.V. was administered by Doris Minor RN; for sedation; 11:14:07 Fentanyl 50 mcg I.V. was administered by Doris Minor RN; for sedation ; 11:28:18 Benadryl 50 mg I.V. was administered by Doris Minor RN; for sedation; 11:39:52 Solumedrol 125 mg I.V. was administered by Doris Minor RN; itching; 11:51:47 Benadryl 50 mg I.V. was administered by Doris Minor RN; For allergic reaction; 11:52:02 Procedure ended.(Physican Out) 11:53:36 Fluoroscopy time 01.80 minutes. 11:53:45 Fluoroscopy dose: 62 mGy 11:53:45 Flurop Dose total: 62 11:53:47 Sharps counted by scrub and verified by R.N. 11:59:42 Insertion/operative site no bleeding no hematoma. 12:00:08 Post-op/insertion site Left Femoral artery dressed using a 4 x 4 and Tegaderm. 12:00:12 Post left femerol artery:stable 12:00:15 Post Procedure Pulses reassessed and unchanged 12:04:06 Post procedure instruction explained to patient.Patient verbalizes understanding. 12:04:09 Procedure and supply charges have been captured, reviewed, submitted an d are correct. 12:22:57 Report given to ICU. 12:23:01 Patient transfered to ICU with Bed. 12:23:31 Vital chart was stopped Device Usage Item Name Manufacture Quantity Catalog Hospital Part Current Minim al Lot# / Number Charge Number Stock Stock Serial# Code ACIST Syringe Acist Medical 1 91030 872204 890067 411159 20 (31785) Systems Inc ACIST Hand Acist Medical 1 66463 381181 796031 976801 5 Control Systems Inc (19273) ACIST Acist Medical 1 73426 410282 298784 393167 5 Manifold Systems Inc (70396) Bag Decanter Microtek 1 2001S 106451 90523 637671 5 (2001S) Medical Inc. Sterile Cardinal 1 [id number] 449904 826949 5 Angiographic Health Pack Tegaderm 4 x 3M 1 1626W 369654 205176 511250 5 4 (1626W) DOC .035 wire Cook Medical 1 C26832 889014 323326 5 (G61339) SHEATH 5FR Terumo 1 WER572 577154 101923 207351 5 [place] (FRD815) Micropuncture VSI VASCULAR 1 7266V 208735 964678 5 VSI 4FR kit SOLUTIONS Angiodynamics Angiodynamics 1 07232639 661348 176772 258344 5 Omniflush 5Fr 65cm (97699333) TUBING [facility] Medical 1 AVP868W 685886 597216 505479 5 Contrast Injection High Pressure (DWM386Z) Signature Audit [place] Stage Time Signature Unsigned Intra-Procedure 11/28/2018 Philippe 12:23:27 PM Shuffield RT (R) (CV) Signatures Monitor : Philippe Signature : Shuffield RT Date : Time : [place] [id number] [place] [address]
[2018-11-28 08:06] LABS: BASOPHILS 0.1 % (0-2); EOSINOPHILS 0 % (0-7); HEMOGLOBIN 14.4 g/dL (12-16); IMMATURE GRANULOCYTES 0.1 % (0-5); LYMPHOCYTES 10.9 % (15-50); MCH 31.3 pg (26.0-34.0); MCHC 34.3 g/dL (31.0-37.0); MCV 91.3 fL (80.0-100.0); MEAN PLATELET VOLUME 10.7 fL (7.4-10.4); MONOCYTES 0.3 % (2-11); NEUTROPHILS 88.6 % (40-80); PLATELET COUNT 194 10x3/uL (130-400); RDW 13.7 % (11.5-14.5); WBC 7.3 10x3/uL (4.8-10.8)
[2018-11-28 08:17] LABS: CALCIUM 8.6 mg/dL (8.5-10.1); CARBON DIOXIDE 26.5 mmol/L (21.0-32.0); POTASSIUM - SERUM 4.5 mmol/L (3.5-5.1)
[2018-11-28 08:21] LABS: APTT 34.4 SECONDS (22.8-39.4); INR 1.18 (0.85-1.17); PROTIME 14.5 SECONDS (11.6-15.0)
[2018-11-28] MEDS ORDERED: LINZESS290 MCG PO (08:29)
[2018-11-28 08:38] VITALS: BP 135/62; BMI 22.4
[2018-11-28 13:00] VITALS: BP 129/70
[2018-11-28 13:34] VITALS: BP 140/81
[2018-11-28 13:53] VITALS: BP 129/70; Ht 172.7 cm; Wt 66.8 kg
[2018-11-28 15:00] VITALS: BP 148/57
[2018-11-28 16:00] VITALS: BP 137/82
--- NOTE | 2018-11-28 16:00 | NUR ---
VOICES NO CO AT TIME.
--- NOTE | 2018-11-28 16:30 | NUR ---
SITTING UP IN BED. EATING SUPPER. NO CO AT TIME. OK TO GO HOME AT 1700.
--- NOTE | 2018-11-28 17:00 | NUR ---
DC INSTRUCTIONS GIVEN. VOICES NO CO AT TIME.
--- NOTE | 2018-11-28 17:05 | NUR ---
IV DCD WITH CATH INTACT.
--- NOTE | 2018-11-28 17:15 | NUR ---
LEFT WITH FRIEND IN PRIVATE AUTO.
== END 2018-11-28 17:36 | disposition home or self-care (01) ==
LOC: D.SP 07:48 → D.RAD 10:00 → OBSVTIME 13:20 → D.ICU 13:20
PROVIDERS: ADMIT General Practice; ATTEND General Practice
DX: I70.211 Atherosclerosis of native arteries of extremities with intermittent claudication, right leg (principal); R53.83 Other fatigue

== ENCOUNTER 2018-12-08 10:00 | Outpatient (CLI) | payer MEDICARE, MEDICAID ==
[2018-11-28 13:53] VITALS: BMI 22.4
[~2018-12-08 10:00] MED LIST changes: +LINZESS290 MCG PO
[2018-12-09] MEDS ORDERED: HYDROCODON-ACE1 EAC2 PO (17:32)
== END 2018-12-08 11:00 | disposition home or self-care (01) ==
LOC: D.MAMMO 10:00
PROVIDERS: ATTEND Family Medicine
DX: Z12.31 Encounter for screening mammogram for malignant neoplasm of breast (principal)

== ENCOUNTER 2018-12-09 14:36 | Emergency (ER) | payer MEDICARE, MEDICAID ==
[~2018-12-09] VITALS: Ht 172.7 cm; Wt 63.6 kg
[2018-12-09 14:40] VITALS: Ht 172.7 cm; Wt 63.6 kg
[2018-12-09 15:28] LABS: BASOPHILS 0.4 % (0-2); EOSINOPHILS 1.7 % (0-7); HEMATOCRIT 41.4 % (36.0-48.0); HEMOGLOBIN 13.9 g/dL (12-16); IMMATURE GRANULOCYTES 0.1 % (0-5); MCHC 33.6 g/dL (31.0-37.0); MCV 92.4 fL (80.0-100.0); MEAN PLATELET VOLUME 10.6 fL (7.4-10.4); NEUTROPHILS 56.8 % (40-80); PLATELET COUNT 192 10x3/uL (130-400); RBC 4.48 10x6/uL (4.00-5.40); RDW 13.8 % (11.5-14.5); WBC 8.4 10x3/uL (4.8-10.8)
[2018-12-09 15:45] LABS: ALBUMIN 3.4 g/dL (3.4-5.0); ANION GAP 10.5 mmol/L (8-16); BILIRUBIN - TOTAL 0.76 mg/dL (0.2-1.3); CALCIUM 8.7 mg/dL (8.5-10.1); CARBON DIOXIDE 28.6 mmol/L (21.0-32.0); CREATININE - SERUM 0.9 mg/dL (0.6-1.3); POTASSIUM - SERUM 4.1 mmol/L (3.5-5.1); PROTEIN - SERUM 7.3 g/dL (6.4-8.2)
[2018-12-09] MEDS ORDERED: HYDROCODON-ACE1 EAC2 PO (17:32)
[2018-12-09 18:21] VITALS: BP 127/52
== END 2018-12-09 18:22 | disposition home or self-care (01) ==
LOC: D.ER 14:36
PROVIDERS: Family Medicine
DX: M54.16 Radiculopathy, lumbar region (principal); I73.9 Peripheral vascular disease, unspecified

== ENCOUNTER 2018-12-16 | Emergency (ER) | payer MEDICARE, MEDICAID ==
[~2018-12-16] VITALS: Ht 172.7 cm; Wt 66.8 kg
[~2018-12-16] MED LIST changes: +HYDROCODON-ACE1 EAC2 PO
[2018-12-16 00:06] VITALS: BP 109/64; Ht 172.7 cm; Wt 66.8 kg
[2018-12-16 00:54] LABS: APPEARANCE HAZY (CLEAR); BILIRUBIN NEGATIVE (NEGATIVE); COLOR YELLOW (YELLOW); GLUCOSE NEGATIVE (NEGATIVE); KETONE NEGATIVE (NEGATIVE); NITRITE POSITIVE (NEGATIVE); PROTEIN TRACE mg/dL (NEGATIVE); SPECIFIC GRAVITY 1.015 (1.005-1.020); UROBILINOGEN NORMAL (NORMAL)
[2018-12-16 01:01] LABS: BACTERIA MANY /hpf (NONE SEEN); EPITHELIAL CELLS 0-5 /hpf (0-5); RED CELLS - URINE 0-5 /hpf (0-5); WHITE CELLS - URINE 25-50 /hpf (0-5)
== END 2018-12-17 11:40 | disposition left against medical advice (07) ==
LOC: D.ER
PROVIDERS: Family Medicine
DX: N39.0 Urinary tract infection, site not specified (principal)

== ENCOUNTER → 2018-12-17 13:41 | Outpatient (CLI) | payer MEDICARE, MEDICAID ==
[2018-12-16 00:06] VITALS: BMI 22.4
== END | disposition home or self-care (01) ==
LOC: D.US 13:41
PROVIDERS: ATTEND General Practice
DX: I73.9 Peripheral vascular disease, unspecified (principal); M79.604 Pain in right leg

== ENCOUNTER 2019-01-05 06:32 | Inpatient (IN) | payer MEDICARE, MEDICAID ==
[2019-01-05] VITALS (21 sets, daily range): BP systolic 92–144; BP diastolic 44–536; BMI 20.8
[~2019-01-05] VITALS: Ht 172.7 cm; Wt 73.4 kg
--- NOTE | ~2019-01-05 | HEMODYNAMI ---
PATIENT:TEMO CLEMENTE MEDICAL RECORD: [id number] : 70 LOCATION:[place] [address] ADMISSION DATE: 01/05/19 Generatedon:01/05/201910:56 Patient name: TEMO CLEMENTE Patient #: [id number] SSN: : 1970 Date of study: 01/05/2019 Page: Of Hemodynamic Procedure Report Patient Data Patient Demographics Procedure consent was obtained First Name: TEMO Gender: Female Last Name: CHYNA : 1970 Middle Initial: A Age: 48 year(s) Patient #: [id number] Race: Unknown Additional ID: [id number] Contact details Address: [address] [place] [address] State: [place] City: [facility] Zip code: [address] Past Medical History Allergies Allergen Reaction Date Comments Reported Iodine Other 01/05/2019 Admission Admission Data Admission Date: 01/05/2019 Admission Time: 6:32 Room #: [facility] Procedure Procedure Types Cath Procedure Peripheral Cath Diagnostic Procedure Abd/Extremity Extremities Bilat Lower Extremity Procedure Description Procedure Date Procedure Date: 01/05/2019 Procedure Start Time: 9:37 Procedure End Time: 10:32 Procedure Staff Name Function Philippe Ortega RT Scrub Arie Fink MD Performing Physician Zuleika Petty RT Monitor Doris Minor RN Nurse Anabell Foote RN Nurse Zeke Campbell MD Additional personnel Procedure Data Cath Procedure Fluoroscopy Diagnostic fluoroscopy Total fluoroscopy Time: 1.6 time: 1.6 min min Diagnostic fluoroscopy Total fluoroscopy dose: 147 dose: 147 mGy mGy Contrast Material Contrast Material Type Amount (ml) Isovue 300 10 Procedure Medications Medication Administration Route Dosage Heparin Flush Bag added to field 3 bags (1000units/500ml NS) Lidocaine 1% 20 Solumedrol I.V. 125 mg Benadryl I.V. 50 mg unlisted medication Heparin Drip I.V. drip 600 units/hr (25360qwcgk/250 D5W) Hemodynamics Rest Heart Rate: 50 (bpm) Snapshots Pre Cath Intra NCS Post Cath Vital Signs Time Heart Resp SPO2 etCO2 NIBP (mmHg) Rhythm Pain Sedation Rate (ipm) (%) (mmHg) Status Level (bpm) 9:06:34 130 25 96 0 Aborted NSR 0 (11) 10(A) , No pain 9:07:52 53 14 97 0 134/70(113) NSR 0 (11) 10(A) , No pain 9:12:05 50 10 98 33 131/62(95) NSR 0 (11) 10(A) , No pain 9:16:15 50 11 99 21.7 134/68(84) NSR 0 (11) 10(A) , No pain 9:20:27 53 16 99 30 131/66(98) NSR 0 (11) 10(A) , No pain 9:24:41 51 14 98 0 128/57(85) NSR 0 (11) 8(A) , No pain 9:28:53 65 27 98 0 107/62(74) NSR 0 (11) 8(A) , No pain 9:33:52 75 12 96 0 Measuring NSR 0 (11) 8(A) , No pain 9:33:54 75 12 96 0 123/63(83) NSR 0 (11) 8(A) , No pain 9:38:02 60 12 96 0 113/69(96) NSR 0 (11) 8(A) , No pain 9:42:06 53 13 96 0 114/69(91) NSR 0 (11) 8(A) , No pain 9:46:14 46 11 96 0 106/54(68) NSR 0 (11) 8(A) , No pain 9:50:24 62 10 96 0 60/36(47) NSR 0 (11) 8(A) , No pain 9:54:17 108 11 0 66/36(50) NSR 0 (11) 8(A) , No pain 9:57:54 122 24 94 0 104/74(96) NSR 0 (11) 8(A) , No pain 10:01:56 92 33 95 0 100/62(80) NSR 0 (11) 8(A) , No pain 10:05:57 85 18 94 0 92/59(74) NSR 0 (11) 8(A) , No pain 10:09:57 86 20 95 0 109/59(87) NSR 0 (11) 8(A) , No pain 10:14:01 89 27 95 0 117/64(92) NSR 0 (11) 8(A) , No pain 10:18:56 92 15 95 0 131/72(100) NSR 0 (11) 8(A) , No pain 10:23:45 110 28 89 0 155/94(119) NSR 0 (11) 8(A) , No pain 10:28:01 85 11 97 0 142/78(100) NSR 0 (11) 8(A) , No pain 10:32:13 77 9 97 0 142/73(105) NSR 0 (11) 8(A) , No pain Medications Time Medication Route Dose Verified Delivered Reason Notes E ffectiveness by by 9:07:45 Heparin Flush added 3 bags Arie Sargent used for Bag to Danae Fink MD procedure (1000units/500ml field NS) 9:08:04 Lidocaine 1% 20ml Arie Sargent for local vial Danae Fink MD anesthetic 9:20:29 Solumedrol I.V. 125 mg Arie George Per Iván Fink RN physician 9:51:13 Benadryl I.V. 50 mg Arie George Per Iván Fink RN physician 10:17:59 ALTEPASE Iván Mcknight RN, MD 10:27:08 Heparin Drip I.V. 600 Arie George Per (14200kdzao/250 drip units/hr Iván Fink RN physician D5W) Procedure Log Time Note 8:46:46 Philippe Ortega RT (R) (CV) sent for patient. Start room use. 8:46:49 Time tracking: Regular hours (M-F 7:00 - 5:00) 8:46:57 Plan of Care:Hemodynamics will remain stable., Cardiac rhythm will remain stable., Comfort level will be maintained., Respiratory function will remain adequate., Patient/ family verbilizes understanding of procedure., Procedure tolerated without complication., Recovers from procedure without complications.. 8:47:11 Patient received from Outpatients to IR Alert and oriented. Tansferred to table in Supine position. 8:47:14 Warm blankets applied, and leah hugger turned on for patient comfort. 8:47:26 Correct patient and procedure confirmed by team. 8:47:33 Signed procedure consent form obtained from patient. 8:47:49 H&P Date Dictated: 01/05/2019 H&P Addendum completed by physician on day of procedure. (MUST COMPLETE FOR ALL OUTPATIENTS). 8:47:51 Pre-procedure instructions explained to patient. 8:47:52 Pre-op teaching completed and patient verbalized understanding. 8:48:05 Family in patients room. 8:48:09 Patient NPO since Midnight. 8:52:01 Patient allergic to Iodine 8:52:13 Is the patient allergic to Iodine/contrast media? Yes. 8:52:16 Was the patient premedicated? Yes 8:52:19 Is patient on blood thinner?Yes 8:52:29 ACC The patient was administered the following blood thiners within the last 24 hours: ACCPlavix, Eliquis 8:52:37 Patient diabetic? No. 8:53:26 Patient not . Patient has had tubal. 8:53:29 - 8:53:30 ----Pre-sedation anethsthesia assessment.---- 8:53:35 Previous problem with sedation/anesthesia? No ? 8:53:37 Snore? No 8:53:40 Sleep apnea? No 8:53:42 Deviated septum? No 8:53:45 Opens mouth fully? Yes 8:53:47 Sticks out tongue? Yes 8:53:54 Dentures? No ? 8:54:09 IV patent on arrival in left hand with 0.45%NaCl at [facility]. 8:54:19 Alarms reviewed . 8:54:21 Sharps counted by scrub and verified . 8:56:16 Pt had blood thinners yesterday 01-04-2019. 8:58:47 SEE ANESTHESIA PRE ASSESSEMENT NOTE. 9:06:11 ECG and BP/O2 sat monitors applied to patient. 9:06:12 Vital chart was started 9:06:15 Full Disclosure recording started 9:07:25 Baseline sample Acquired. 9:07:45 Heparin Flush Bag (1000units/500ml NS) 3 bags added to field was administered by Arie Fink MD; used for procedure; 9:08:04 Lidocaine 1% 20ml vial was administered by Arie Fink MD; for local anesthetic; 9:12:02 Micropuncture VSI 4FR kit opened to sterile field. 9:12:03 GLIDE WIRE ANGLE 180cm (HZ2031) opened to sterile field. 9:12:40 DOC .035 wire (D40107) opened to sterile field. 9:13:46 Angiodynamics Omniflush 5Fr 65cm (49174004) opened to sterile field. 9:14:00 Use device set IR Diagnostic 9:14:02 ACIST Syringe (30891) opened to sterile field. 9:14:03 ACIST Hand Control (82948) opened to sterile field. 9:14:04 ACIST Manifold (23404) opened to sterile field. 9:14:05 Bag Decanter (2002S) opened to sterile field. 9:14:06 Sterile Angiographic Pack opened to sterile field. 9:14:07 Tegaderm 4 x 4 (1626W) opened to sterile field. 9:16:34 Cordis 5Fr BRITE TIP 11cm sheath opened to sterile field. 9:16:42 Right Hip was prepped with chlora-prep and draped in sterile fashion. 9:20:29 Solumedrol 125 mg I.V. was administered by Doris Minor RN; Per physician; 9:30:31 Pre procedure: right dorsailis pedis pulse Doppler 9:33:27 Final Timeout: patient, procedure, and site verified with staff and physician. All members of the team are in agreement. 9:35:25 Physician arrived 9:35:26 --------ALL STOP TIME OUT------ 9:35:32 Right groin site verified by team. 9:35:46 Sedation plan: General Anesthesia Medication:General Anesthesia, Lidocaine 9:36:03 Procedure started. 9:37:48 Local anesthetic to right femoral artery with Lidocaine 1% by Arie Fink MD.INITIAL ACCESS ONLY 9:42:14 Access obtained with 4Fr micropunture. 9:43:37 5 GERMAN BRITE TIP SHEATH INSERTED INTO THE RIGHT FEMERAL ARTERY. 9:46:54 AN INJECTION MADE IN THE AORTA THRU THE SHEATH IN THE RIGHT GROIN. 9:48:16 RIGHT FEMERAL INJECTION IN THE SHEATH. 9:50:16 The 5 setswana onmi flush is inserted into the aorta thru the sheath. 9:51:13 Benadryl 50 mg I.V. was administered by Doris Minor RN; Per physician ; 10:11:04 GLIDE CATHETER 5FR ANGLED 65cm (CG507) opened to sterile field. 10:11:05 ECKERT 260 wire (Y85858) opened to sterile field. 10:11:45 INFUSION CATHETER 10cm Cragg-Arsalan (0270687) opened to sterile field . 10:12:47 an angled glide cath is used to exchange the eckert wire. 10:14:04 an cragg-arsalan infusion catheter is inserted for infusion of tpa. 10:14:54 SUTURE SILK 2-0 BLK BR FS 18 I opened to sterile field. 10:16:02 The 5 setswana sheath is sutured in with 2.[address] Fink. 10:17:08 Procedure ended.(Physican Out) 10:17:26 Fluoroscopy time 01.60 minutes. 10:17:31 Fluoroscopy dose: 147 mGy 10:17:31 Flurop Dose total: 147 10:17:37 Contrast amount:Isovue 300 10ml. 10:17:40 Sharps counted by scrub and verified . 10:17:59 ALTEPASE was administered by Doris Minor RN; ; 10:22:03 Post-op/insertion site Right Femoral artery dressed using a 4 x 4 and Tegaderm. 10:22:45 The infusion cath is left in placed. 10:22:52 Post procedure instruction explained to patient.Patient verbalizes understanding. 10:22:53 Patient needs reinforcement of post procedure teaching. 10:23:30 SEE ANESTHESIA POST PROCEDURE NOTE FOR POST PROCEDURE. 10:25:47 Procedure and supply charges have been captured, reviewed, submitted an d are correct. 10:25:56 See physician's report for complete and final results. 10:26:06 Report given to CVICU. 10:27:08 Heparin Drip (18797wcgzb/250 D5W) 600 units/hr I.V. drip was administered by Doris Minor RN; Per physician; 10:32:00 Vital chart was stopped 10:32:06 Patient transfered to Pre/Post Procedure Room with Bed. 10:32:27 Full Disclosure recording stopped 10:32:27 Procedure ended. Device Usage Item Name Manufacture Quantity Catalog Hospital Part Current Mini mal Lot# / Number Charge Number Stock Stock Serial# Code Micropuncture VSI VASCULAR 1 7266V 119245 953979 5 VSI 4FR kit SOLUTIONS GLIDE WIRE Terumo 1 JF7033 839871 554278 094464 5 ANGLE 180cm (VF3411) DOC .035 wire Cook Medical 1 T50945 678983 860181 5 (S74808) Angiodynamics Angiodynamics 1 31647535 503501 397148 191477 5 Omniflush 5Fr 65cm (24477401) ACIST Syringe Acist Medical 1 09778 324513 407864 154315 20 (72802) Systems Inc ACIST Hand Acist Medical 1 67708 308168 584337 143777 5 Control Systems Inc (19721) ACIST Manifold Acist Medical 1 64054 109405 967142 296971 5 (08808) Systems Inc Bag Decanter Microtek 1 2001S 328751 77036 959080 5 (2002S) Medical Inc. Sterile Cardinal 1 [id number] 650133 409226 5 Angiographic Health Pack Tegaderm 4 x 4 3M 1 1626W 536485 055985 991516 5 (1626W) Cordis 5Fr Cardinal 1 598590C 938833 343110 5 BRITE TIP 11cm Health sheath GLIDE CATHETER Terumo 1 CG507 544991 569335 5 5FR ANGLED 65cm (CG507) ECKERT 260 wire Cook Medical 1 V64929 596526 57551 452981 5 9200781 (G48157) INFUSION Medtronic 1 17608-58 137598 112379 5 CATHETER 10cm Damon (8696966) SUTURE SILK Ethicon 1 685H 331348 594607 5 2-0 BLK BR FS 18 I Signature Audit [place] Stage Time Signature Unsigned Intra-Procedure 01/05/2019 Zuleika Petty 10:33:27 AM Malinda RT(R) (CV) 01/05/2019 RT(R) (CV) 10:55:54 AM Intra-Procedure 01/05/2019 Zuleika 10:56:19 AM Malinda RT(R) (CV) Signatures Monitor : Zuleika Signature : Malinda RT Date : Time : [place] [id number] [place] [address]
--- NOTE | ~2019-01-05 | HEMODYNAMI ---
PATIENT:TEMO CLEMENTE MEDICAL RECORD: [id number] : 70 LOCATION:[place] [address] ADMISSION DATE: 01/05/19 Generatedon:01/06/201911:25 Patient name: TEMO CLEMENTE Patient #: [id number] SSN: : 1970 Date of study: 01/06/2019 Page: Of Hemodynamic Procedure Report Patient Data Patient Demographics Procedure consent was obtained First Name: TEMO Gender: Female Last Name: CHYNA : 1970 Middle Initial: A Age: 48 year(s) Patient #: [id number] Race: Unknown Additional ID: [id number] Contact details [address]: [address] [place] [address] State: [place] City: [facility] Zip code: [address] Past Medical History Allergies Allergen Reaction Date Comments Reported Iodine Other 01/05/2019 Admission Admission Data Admission Date: 01/05/2019 Admission Time: 10:51 Room #: [facility] Procedure Procedure Types Cath Procedure Peripheral Cath Diagnostic Procedure Miscellaneous Aspiration/Injection (Joint) Procedure Description Procedure Date Procedure Date: 01/06/2019 Procedure Start Time: 10:35 Procedure Staff Name Function Philippe Ortega RT Monitor JOVANY SUÁREZ RT Scrub Doris Minor RN Nurse Arie Fink MD Performing Physician Procedure Data Cath Procedure Fluoroscopy Diagnostic fluoroscopy Total fluoroscopy Time: 1.7 time: 1.7 min min Diagnostic fluoroscopy Total fluoroscopy dose: 155 dose: 155 mGy mGy Procedure Medications Medication Administration Route Dosage Heparin Flush Bag added to field 3 bags (1000units/500ml NS) Lidocaine 1% added to field 20 Hemodynamics Rest Heart Rate: 44 (bpm) Snapshots Pre Cath Intra NCS Post Cath Vital Signs Time Heart Resp SPO2 etCO2 NIBP (mmHg) Rhythm Pain Sedation Rate (ipm) (%) (mmHg) Status Level (bpm) 10:15:08 41 22 97 0 163/66(121) NSR 0 (11) 10(A) , No pain 10:19:30 42 8 98 30.8 169/65(119) NSR 0 (11) 10(A) , No pain 10:23:57 44 10 98 33.1 143/56(103) NSR 0 (11) 10(A) , No pain 10:28:10 44 23 100 32.3 156/66(119) NSR 0 (11) 9(A) , No pain 10:32:29 44 8 100 33.8 166/70(127) NSR 0 (11) 9(A) , No pain 10:36:51 46 11 100 32.3 165/67(129) NSR 0 (11) 9(A) , No pain 10:41:13 44 9 100 33.1 164/66(126) NSR 0 (11) 9(A) , No pain 10:45:31 47 9 99 33.8 167/77(137) NSR 0 (11) 9(A) , No pain 10:49:53 43 10 100 33.8 167/68(130) NSR 0 (11) 9(A) , No pain 10:54:13 41 11 100 33.9 170/70(132) NSR 0 (11) 9(A) , No pain 10:58:38 45 10 100 33.8 154/64(112) NSR 0 (11) 9(A) , No pain 11:02:58 44 12 100 32.3 142/56(103) NSR 0 (11) 9(A) , No pain 11:07:08 56 15 96 28.6 129/78(112) NSR 0 (11) 9(A) , No pain 11:11:24 49 20 99 19.5 117/46(74) NSR 0 (11) 9(A) , No pain 11:16:23 45 21 96 0 Measuring NSR 0 (11) 9(A) , No pain 11:16:35 45 21 95 0 128/50(94) NSR 0 (11) 9(A) , No pain 11:20:35 97 0 No Cuff NSR 0 (11) 9(A) , No pain Medications Time Medication Route Dose Verified Delivered Reason Notes Effe ctiveness by by 10:24:49 Heparin Flush added 3 Juan Juan used for Bag to bags Herrmann Herrmann procedure (1000units/500ml field MD LINK NS) 10:25:01 Lidocaine 1% added 20ml Juan Martinez for local to vial Herrmann Herrmann anesthetic field MD LINK Procedure Log Time Note 9:59:32 Philippe Jordan RT (R) (CV) sent for patient. Start room use. 9:59:41 Time tracking: Regular hours (M-F 7:00 - 5:00) 9:59:47 Plan of Care:Hemodynamics will remain stable., Cardiac rhythm will remain stable., Comfort level will be maintained., Respiratory function will remain adequate., Patient/ family verbilizes understanding of procedure., Procedure tolerated without complication., Recovers from procedure without complications.. 9:59:52 Patient received from CVICU to IR Alert and oriented. Tansferred to table in Supine position. 9:59:54 Correct patient and procedure confirmed by team. 9:59:56 Signed procedure consent form obtained from patient. 9:59:56 ECG and BP/O2 sat monitors applied to patient. 9:59:59 Full Disclosure recording started 10:00:00 - 10:00:04 H&P Date Dictated: 01/06/2019 Within 30 days and on chart.. 10:00:05 Pre-procedure instructions explained to patient. 10:00:06 Pre-op teaching completed and patient verbalized understanding. 10:00:08 Family in waiting room. 10:00:10 Patient NPO since Midnight. 10:00:16 Is the patient allergic to Iodine/contrast media? Yes. 10:00:18 Was the patient premedicated? No 10:00:42 will not use contrast will use co2 10:00:44 Is patient on blood thinner?Yes 10:00:55 ACC The patient was administered the following blood thiners within the last 24 hours: ACCPlavix pt on tpa and heparin drip 10:01:24 Patient diabetic? No. 10:01:31 Use device set IR Diagnostic 10:01:33 Bag Decanter (2002S) opened to sterile field. 10:01:34 Sterile Angiographic Pack opened to sterile field. 10:01:34 Tegaderm 4 x 4 (1626W) opened to sterile field. 10:01:43 ----Pre-sedation anethsthesia assessment.---- 10:01:46 Previous problem with sedation/anesthesia? No ? 10:01:48 Snore? No 10:01:49 Sleep apnea? No 10:01:52 Deviated septum? No 10:01:53 Opens mouth fully? Yes 10:01:54 Sticks out tongue? Yes 10:01:56 Airway obstruction? No ? 10:01:59 Dentures? No ? 10:02:02 Pre procedure: right dorsailis pedis doppler 10:02:06 Pre procedure: left dorsailis pedis pulse Doppler 10:02:09 Pre procedure: right posterior tibial pulse Doppler 10:02:12 Pre procedure: left posterior tibial pulse Doppler 10:02:17 Alarms reviewed by R. N. 10:02:17 Sharps counted by scrub and verified by R.N. 10:02:22 Right groin area was prepped with betadine and draped in sterile fashio n 10:03:55 IV patent on arrival in left hand with D5W at 50ml/hr. 10:13:54 Vital chart was started 10:24:49 Heparin Flush Bag (1000units/500ml NS) 3 bags added to field was administered by Juan Herrmann MD; used for procedure; 10:25:01 Lidocaine 1% 20ml vial added to field was administered by Juan Herrmann MD; for local anesthetic; 10:25:17 STOPCOCK 3-Way Large Bore ([id number]) opened to sterile field. 10:25:18 TUBING Contrast Injection High Pressure ([id number]) opened to sterile field. 10:31:53 Physician arrived 10::53 --------ALL STOP TIME OUT------ 10::54 Final Timeout: patient, procedure, and site verified with staff and physician. All members of the team are in agreement. 10:31:57 Right groin site verified by team. 10:32:12 Fire Safety Assessment: C--Open oxygen or nitrous oxide is being used. 10:32:17 Sedation plan: IV Moderate Sedation Medication:Versed, Fentanyl 10:34:43 Baseline sample Acquired. 10:35:02 Procedure started. 10:35:29 Local anesthetic to right femoral artery with Lidocaine 1% by Arie Fink MD.INITIAL ACCESS ONLY 10:36:29 ECKERT 260 wire ([id number]) opened to sterile field. 10:38:03 Angiodynamics Omniflush 5Fr 65cm ([id number]) opened to sterile field. 10:47:19 GLIDE WIRE ANGLE 180cm ([id number]) opened to sterile field. 11:04:29 Procedure ended.(Physican Out) 11:04:54 Fluoroscopy time 01.70 minutes. 11:04:56 Fluoroscopy dose: 155 mGy 11:04:56 Flurop Dose total: 155 11:05:03 Sharps counted by scrub and verified by R.N. 11:20:46 Vital chart was stopped 11:22:29 Post-op/insertion site Right Femoral artery dressed using a 4 x 4 and Tegaderm. 11:22:36 Post right femoral artery:hematoma, soft 11:23:20 tere maged present pre procedure from tpa infusion over night 11:23:23 Post Procedure Pulses reassessed and unchanged 11:24:29 Post procedure instruction explained to patient.Patient verbalizes understanding. 11:24:30 Procedure and supply charges have been captured, reviewed, submitted an d are correct. 11:24:43 Report given to CVICU. 11:24:48 Patient transfered to CVICU with Bed. Device Usage Item Name Manufacture Quantity Catalog Hospital Part Current Minim al Lot# / Number Charge Number Stock Stock Serial# Code Bag Decanter Microtek 1 [id number] [id number] 5 () [employer] Sterile Cardinal 1 [id number] 5 Angiographic Health Pack Tegaderm 4 x 3M 1 1626W [id number] 922829 [id number] 5 4 (1626W) STOPCOCK [facility] 1 [id number] 690434 7694 [id number] 5 [id number] 3-Way Large Bore ([id number]) TUBING [facility] 1 [id number] 979665 747380 935494 5 Contrast Injection High Pressure ([id number]) ECKERT 260 [facility] 1 [id number] 882000 72867 051392 5 wire ([id number]) Angiodynamics Angiodynamics 1 [id number] 887595 201432 281331 5 Omniflush 5Fr 65cm ([id number]) GLIDE WIRE Terumo 1 JP2070 417858 754950 817913 5 ANGLE 180cm (OT4798) Signature Audit [place] Stage Time Signature Unsigned Intra-Procedure 01/06/2019 Philippe 11:25:10 AM Jordan RT (R) (CV) Signatures Monitor : Philippe Signature : Jordan RT Date : Time : [address] [address]
[2019-01-05 06:55] LABS: ANION GAP 16.4 mmol/L (8-16); CALCIUM 9.3 mg/dL (8.5-10.1); CREATININE - SERUM 1.1 mg/dL (0.6-1.3); POTASSIUM - SERUM 4.4 mmol/L (3.5-5.1)
[2019-01-05 07:04] LABS: APTT 29.8 SECONDS (22.8-39.4); INR 1.17 (0.85-1.17); PROTIME 14.4 SECONDS (11.6-15.0)
[2019-01-05 07:38] LABS: BASOPHILS 0.2 % (0-2); EOSINOPHILS 0 % (0-7); HEMATOCRIT 43.7 % (36.0-48.0); HEMOGLOBIN 14.8 g/dL (12-16); LYMPHOCYTES 19.9 % (15-50); MCH 31.2 pg (26.0-34.0); MCHC 33.9 g/dL (31.0-37.0); MEAN PLATELET VOLUME 11.3 fL (7.4-10.4); MONOCYTES 0.5 % (2-11); NEUTROPHILS 79.4 % (40-80); PLATELET COUNT 195 10x3/uL (130-400); RBC 4.75 10x6/uL (4.00-5.40); WBC 5.9 10x3/uL (4.8-10.8)
[2019-01-05 10:56] LABS: APTT 29.9 SECONDS (22.8-39.4); INR 1.28 (0.85-1.17); PROTIME 15.5 SECONDS (11.6-15.0)
[2019-01-05 11:18] LABS: BASOPHILS 0.1 % (0-2); EOSINOPHILS 0.1 % (0-7); HEMATOCRIT 40.6 % (36.0-48.0); HEMOGLOBIN 13.6 g/dL (12-16); IMMATURE GRANULOCYTES 0.2 % (0-5); LYMPHOCYTES 19.7 % (15-50); MCH 30.7 pg (26.0-34.0); MCHC 33.5 g/dL (31.0-37.0); MCV 91.6 fL (80.0-100.0); MEAN PLATELET VOLUME 11.3 fL (7.4-10.4); MONOCYTES 1.2 % (2-11); NEUTROPHILS 78.7 % (40-80); PLATELET COUNT 157 10x3/uL (130-400); RBC 4.43 10x6/uL (4.00-5.40)
[2019-01-05 11:20] LABS: WBC 10.2 10x3/uL (4.8-10.8)
--- NOTE | 2019-01-05 11:45 | NUR ---
PT ARRIVED TO ROOM FROM IR WITH IR STAFF AND RECOVERED BY Khoi ORTEZ FROM IR, PLACED ON MONITORING EQUIMENT WITH ALARMS SET, ON ROOM AIR, L HAND PIV WITH NS, DILAUDID FLAVOR EXTRACTOR ININTIATED PER EMAR AND PT EDUCATED ON USE, HEPARIN AT SET RATE, CATH FLOW TO R GROIN, SITE SOFT WITH NO SIGNS OF BLEEDING, PT AWARE OF NEED TO LAY FLAT, PULSES PALPABLE AND EXTREMETIES WARM, CALL LIGHT WITHIN REACH, ALARMS SET, SPOKE WITH TEREZA IN IR TO [employer] Q6 BEGINNING AT 1200 AND THEN WITH VIRIDIANA IN LAB
[2019-01-05 12:38] LABS: BASOPHILS 0.1 % (0-2); EOSINOPHILS 0 % (0-7); HEMATOCRIT 40.7 % (36.0-48.0); HEMOGLOBIN 13.8 g/dL (12-16); IMMATURE GRANULOCYTES 0.2 % (0-5); LYMPHOCYTES 7.6 % (15-50); MCHC 33.9 g/dL (31.0-37.0); MCV 91.5 fL (80.0-100.0); MONOCYTES 0.8 % (2-11); NEUTROPHILS 91.3 % (40-80); PLATELET COUNT 162 10x3/uL (130-400); RBC 4.45 10x6/uL (4.00-5.40)
[2019-01-05 13:06] LABS: APTT 33.4 SECONDS (22.8-39.4); INR 1.27 (0.85-1.17); PROTIME 15.3 SECONDS (11.6-15.0)
--- NOTE | 2019-01-05 13:42 | NUR ---
SPOKE WITH TEREZA IN IR ABOUT LOW HR AND BP, TOLD TO TALK WITH MELLY FOR PRIMARY CARE, CALLED TO NOTIFY WITH ORDERS FOR DOPAMINE AT 5MCG
--- NOTE | 2019-01-05 15:45 | NUR ---
BP 84/40 MAP [address] PICKARD, NEW ORDERS FOR 500ML BOLUS NS AND INCREASE DOPAMINE TO 10MCG, READ BACK AND VERIFIED
--- NOTE | 2019-01-05 17:36 | NUR ---
PT REQUESTING HOME REQUIP,. SPOKE WITH DR PICKARD AND OKAYED TO RESTART
[2019-01-05 18:43] LABS: BASOPHILS 0 % (0-2); EOSINOPHILS 0 % (0-7); HEMATOCRIT 39.2 % (36.0-48.0); HEMOGLOBIN 13.2 g/dL (12-16); IMMATURE GRANULOCYTES 0.3 % (0-5); LYMPHOCYTES 6.1 % (15-50); MCH 30.7 pg (26.0-34.0); MCHC 33.7 g/dL (31.0-37.0); MCV 91.2 fL (80.0-100.0); MEAN PLATELET VOLUME 10.6 fL (7.4-10.4); MONOCYTES 1.9 % (2-11); NEUTROPHILS 91.7 % (40-80); PLATELET COUNT 152 10x3/uL (130-400); RDW 14.1 % (11.5-14.5)
[2019-01-05 18:57] LABS: INR 1.37 (0.85-1.17); PROTIME 16.3 SECONDS (11.6-15.0)
[2019-01-05 19:00] LABS: APTT 52.6 SECONDS (22.8-39.4)
[2019-01-06] VITALS (27 sets, daily range): BP systolic 99–145; BP diastolic 41–59; Ht 172.7 cm; Wt 73.4 kg
[2019-01-06 00:15] LABS: BASOPHILS 0 % (0-2); EOSINOPHILS 0 % (0-7); HEMATOCRIT 38.2 % (36.0-48.0); IMMATURE GRANULOCYTES 0.2 % (0-5); LYMPHOCYTES 6.2 % (15-50); MCV 91.2 fL (80.0-100.0); MONOCYTES 3.3 % (2-11); NEUTROPHILS 90.3 % (40-80); PLATELET COUNT 158 10x3/uL (130-400); RBC 4.19 10x6/uL (4.00-5.40); RDW 13.9 % (11.5-14.5); WBC 16.9 10x3/uL (4.8-10.8)
[2019-01-06 00:25] LABS: INR 1.46 (0.85-1.17); PROTIME 17.1 SECONDS (11.6-15.0)
[2019-01-06 00:38] LABS: APTT 69.8 SECONDS (22.8-39.4)
--- NOTE | 2019-01-06 01:25 | NUR ---
ATTEMPTED TO PAGE X3 ATTEMPTS, NO ANSWER FROM SERVICE
--- NOTE | 2019-01-06 01:30 | NUR ---
IR PAGED R/T PT HR AND B/P DECRESED, WITH SOFT SWELLING NOTED TO RIGHT GROIN. CALLED BACK, UPDATE GIVEN, ORDERS RECEIVED FOR 500ML NS BOLUS, DRAW CARDIAC ENZYMES, DECREASE TPA TO 15ML/HR, AND STATED TO TITRATE DOPAMINE TO KEEP SBP ABOVE 90, NO FURTHER AT THIS TIME
[2019-01-06 02:58] LABS: CREATINE KINASE 29 UL (21-215)
[2019-01-06 03:10] LABS: TROPONIN-I < 0.017 ng/mL (0.000-0.060)
--- NOTE | 2019-01-06 03:10 | NUR ---
CALLED ICU BACK, UPDATE GIVEN ON PT INCLUDING CURRENT V/S AND MEDS, NO NEW ORDERS, WILL CONTINUE TO MONITOR
--- NOTE | 2019-01-06 03:30 | NUR ---
PT PLACED ON BEDPAN WITH KIA RN ASSIST, CLEAR YELLOW VOID NOTED, PT AAOx4, DENIES PAIN OR NEEDS AT THIS TIME, SINUS SHAMIKA ON CM, OTHER VSS, PPP, WILL CONTINUE TO MONITOR
[2019-01-06 07:29] LABS: BASOPHILS 0 % (0-2); EOSINOPHILS 0 % (0-7); HEMATOCRIT 38.9 % (36.0-48.0); HEMOGLOBIN 13.1 g/dL (12-16); IMMATURE GRANULOCYTES 0.3 % (0-5); LYMPHOCYTES 5.3 % (15-50); MCH 30.8 pg (26.0-34.0); MCHC 33.7 g/dL (31.0-37.0); MCV 91.3 fL (80.0-100.0); MEAN PLATELET VOLUME 10.9 fL (7.4-10.4); MONOCYTES 2.6 % (2-11); NEUTROPHILS 91.8 % (40-80); PLATELET COUNT 152 10x3/uL (130-400); RBC 4.26 10x6/uL (4.00-5.40); WBC 18.9 10x3/uL (4.8-10.8)
[2019-01-06 07:43] LABS: INR 1.39 (0.85-1.17); PROTIME 16.5 SECONDS (11.6-15.0)
[2019-01-06 07:44] LABS: APTT 57.1 SECONDS (22.8-39.4)
[2019-01-06 07:51] LABS: CKMB 0.3 U/L (0.0-3.6); CREATINE KINASE 24 UL (21-215); TROPONIN-I < 0.017 ng/mL (0.000-0.060)
[2019-01-06 11:35] LABS: CALC OSMOLALITY 282 mosm/kg (275-300); CALCIUM 8.2 mg/dL (8.5-10.1); CARBON DIOXIDE 21.3 mmol/L (21.0-32.0); CHLORIDE - SERUM 105 mmol/L (98-107); GLUCOSE 180 mg/dL (74-106); SODIUM 139 mmol/L (136-145); UREA NITROGEN 13 mg/dL (7-18); eGFR NON AFRICAN AMERICAN 81 mL/min (90-120)
[2019-01-06 11:36] LABS: CREATININE - SERUM 0.8 mg/dL (0.6-1.3)
[2019-01-06 12:57] LABS: INR 1.36 (0.85-1.17); PROTIME 16.2 SECONDS (11.6-15.0)
[2019-01-06 12:59] LABS: HEMATOCRIT 37.6 % (36.0-48.0); HEMOGLOBIN 12.6 g/dL (12-16); MCH 30.5 pg (26.0-34.0); MCHC 33.5 g/dL (31.0-37.0); MEAN PLATELET VOLUME 10.8 fL (7.4-10.4); PLATELET COUNT 140 10x3/uL (130-400); RBC 4.13 10x6/uL (4.00-5.40); RDW 13.8 % (11.5-14.5); WBC 22.7 10x3/uL (4.8-10.8)
[2019-01-06 13:03] LABS: APTT 28.6 SECONDS (22.8-39.4)
[2019-01-06 14:06] LABS: LYMPHOCYTES 11 % (15-50); MONOCYTES 7 % (2-11); NEUTROPHILS 82 % (40-80); PLATELET ESTIMATE NORMAL
[2019-01-06 14:15] LABS: CKMB 0.6 U/L (0.0-3.6); CREATINE KINASE 38 UL (21-215); TROPONIN-I < 0.017 ng/mL (0.000-0.060)
--- NOTE | 2019-01-06 15:45 | NUR ---
JENNIFER COLEY RN CALLED GO AHEAD AND START HEPARIN PER DR CADENA.
[2019-01-06 18:57] LABS: INR 1.42 (0.85-1.17); PROTIME 16.8 SECONDS (11.6-15.0)
[2019-01-06 18:58] LABS: APTT 32.1 SECONDS (22.8-39.4)
--- NOTE | 2019-01-06 19:00 | NUR ---
REPORT RECEIVED, SHIFT ASSESSMENT COMPLETE PER FLOW SHEET, PT AAOx4 DENIES PAIN OR NEEDS, RIGHT GROIN SOFT, NO FIRM MASS NOTED, BRUISING NOTED AROUND SITE, MARKED BORDERS WITH BLACK MAKER, SITE C/D/I, PPP, BRADYCARDIC ON CM, OTHER VSS, WILL CONTINUE TO MONITOR
[2019-01-06 19:03] LABS: BASOPHILS 0 % (0-2); EOSINOPHILS 0 % (0-7); HEMATOCRIT 35.5 % (36.0-48.0); HEMOGLOBIN 11.8 g/dL (12-16); IMMATURE GRANULOCYTES 0.2 % (0-5); LYMPHOCYTES 3.8 % (15-50); MCH 30.6 pg (26.0-34.0); MCHC 33.2 g/dL (31.0-37.0); MCV 92.2 fL (80.0-100.0); MEAN PLATELET VOLUME 10.9 fL (7.4-10.4); MONOCYTES 2.1 % (2-11); NEUTROPHILS 93.9 % (40-80); PLATELET COUNT 136 10x3/uL (130-400); RBC 3.85 10x6/uL (4.00-5.40); RDW 13.9 % (11.5-14.5)
--- NOTE | 2019-01-06 21:00 | NUR ---
PT PLACED ON BEDPAN, CLEAR YELLOW VOID NOTED, REPOSITIONED FOR COMFORT, NO ACUTE CHANGES NOTED, PPP, WILL CONTINUE TO MONITOR
--- NOTE | 2019-01-06 23:00 | NUR ---
REASSESSMENT COMPLETE SEE FLOW SHEET FOR FURTHER, NO ACUTE CHANGES, PT AAOx4, ABLE TO MAKE NEEDS KNOWN, RIGHT GROIN UNCHANGED FROM INITIAL ASSESSMENT, PPP, VSS, PT DENIES PAIN OR NEEDS AT THIS TIME, WILL CONTINUE TO MONITOR
[2019-01-07] VITALS (17 sets, daily range): BP systolic 90–148; BP diastolic 44–84
--- NOTE | 2019-01-07 01:00 | NUR ---
PT ASSISTED ON BEDPAN, CLEAR YELLOW VOID NOTED, ARNULFO CARE COMPLETED BY KIA RN , REPOSITIONED PT FOPR COMFORT, PT REQUESTED INSOMNIA MEDS, GIVEN PER MAR, CRACKERS GIVEN PER PT REQUEST, BRADICARDIC ON CM, PHISICIANS AWARE OF HR, OTHER VSS, WILL CONTINUE TO MONITOR
[2019-01-07 02:23] LABS: HEMATOCRIT 35.9 % (36.0-48.0); HEMOGLOBIN 12.2 g/dL (12-16); MCH 30.6 pg (26.0-34.0); MEAN PLATELET VOLUME 11.2 fL (7.4-10.4); PLATELET COUNT 126 10x3/uL (130-400); RBC 3.99 10x6/uL (4.00-5.40); RDW 13.7 % (11.5-14.5); WBC 23.4 10x3/uL (4.8-10.8)
[2019-01-07 02:29] LABS: INR 1.29 (0.85-1.17); PROTIME 15.6 SECONDS (11.6-15.0)
[2019-01-07 02:30] LABS: APTT 46.8 SECONDS (22.8-39.4)
[2019-01-07 02:38] LABS: LYMPHOCYTES 5 % (15-50); NEUTROPHILS 93 % (40-80); PLATELET ESTIMATE NORMAL; PLATELET MORPHOLOGY GIANT PLTS PRESENT
--- NOTE | 2019-01-07 03:15 | NUR ---
CALLED ICU, UPDATE GIVEN, ORDERS RECEIVED TO GIVE X2 AMPS SODIUM BICARB IVP, ALSO GIVE 1L LR BOLUS. READBACK AND VERIFIED ORDERS
--- NOTE | 2019-01-07 06:45 | NUR ---
PT ACCIDENTLY PULLED LEFT HAND IV OUT, MINIMAL BLEEDING CONTROLED BY PRESSURE, CATH D/C'D WITH TIP INTACT, 2X2 WITH TEGADERM DRSG PLACED OVER IV SITE, PT CALM, VSS, NO ACUTE DISTRESS, WILL CONTINUE TO MONITOR
[2019-01-07 06:54] LABS: CALC OSMOLALITY 282 mosm/kg (275-300); CALCIUM 8.5 mg/dL (8.5-10.1); CHLORIDE - SERUM 105 mmol/L (98-107); CREATININE - SERUM 0.7 mg/dL (0.6-1.3); GLUCOSE 156 mg/dL (74-106); POTASSIUM - SERUM 3.7 mmol/L (3.5-5.1); SODIUM 141 mmol/L (136-145); UREA NITROGEN 10 mg/dL (7-18); eGFR NON AFRICAN AMERICAN > 90 mL/min (90-120)
[2019-01-07 06:56] LABS: CARBON DIOXIDE 29.2 mmol/L (21.0-32.0)
[2019-01-07 07:09] LABS: BASOPHILS 0 % (0-2); EOSINOPHILS 0 % (0-7); HEMATOCRIT 36.1 % (36.0-48.0); HEMOGLOBIN 12.2 g/dL (12-16); IMMATURE GRANULOCYTES 0.3 % (0-5); LYMPHOCYTES 3.6 % (15-50); MCH 30.7 pg (26.0-34.0); MCHC 33.8 g/dL (31.0-37.0); MCV 90.7 fL (80.0-100.0); MEAN PLATELET VOLUME 11.1 fL (7.4-10.4); MONOCYTES 2.5 % (2-11); NEUTROPHILS 93.6 % (40-80); PLATELET COUNT 134 10x3/uL (130-400); RBC 3.98 10x6/uL (4.00-5.40); RDW 13.9 % (11.5-14.5); WBC 21.8 10x3/uL (4.8-10.8)
[2019-01-07 09:14] LABS: FOLATE (FOLIC ACID) - SERUM 3.4 ng/mL (>3.0)
--- NOTE | 2019-01-07 10:28 | MORECARE ---
CASE MANAGEMENT DISCHARGE SUMMARY PATIENT: TEMO CLEMENTE UNIT: [id number] ADM DATE: 01/05/19 AGE: 48 : 70 SEX: F ROOM/BED: [facility] AUTHOR: ANTONIA ULLOA PHYSICIAN: REFERRING PHYSICIAN: ARNAUD CADENA MD DATE OF SERVICE: 01/07/19 Discharge Plan Patient Name: TEMO CLEMENTE Facility: [facility]:[place] : 1970 Planned Disposition: Home Anticipated Discharge Date: Discharge Date: Expected LOS: Initial Reviewer: [email or web address] Initial Review Date: 01/06/2019 Generated: 01/07/19 11:28 am Patient Name: TEMO CLEMENTE Page 68833 at 1028 All edits/amendments must be made on the electronic document DICTATION DATE: 01/07/19 1027 SUBSTANCE ABUSE CLINICIAN: RK 01/07/19 1027 RPT#: [id number] DC DATE: STATUS: ADM IN [facility] [address] [place] [address] END OF REPORT
--- NOTE | 2019-01-07 10:36 | MORECARE ---
CASE MANAGEMENT DISCHARGE SUMMARY PATIENT: TEMO CLEMENTE UNIT: [id number] ADM DATE: 01/05/19 AGE: 48 : 70 SEX: F [facility] AUTHOR: LAILA,DOC PHYSICIAN: REFERRING PHYSICIAN: ARNAUD CADENA MD DATE OF SERVICE: 01/07/19 Discharge Plan Patient Name: TEMO CLEMENTE Facility: [facility]:[place] : 1970 Planned Disposition: Home Anticipated Discharge Date: Discharge Date: Expected LOS: Initial Reviewer: [email or web address] Initial Review Date: 01/06/2019 Generated: 01/07/19 11:36 am Comments DCP- Discharge Planning Updated by [email or web address]: Pia Vazquez on 01/07/19 9:[address] Patient Name: TEMO CLEMENTE Admission Status: Elective Accout number: [id number] Admission Date: 01-05-2019 : 1970 Admission Diagnosis:PERIPHERAL VASCULAR DISEASE, UNSPECIFIED Attending: ARNAUD CADENA Current LOS: 2 Anticipated DC Date: Planned Disposition: Home Primary Insurance: [employer] CHOICE PPO MCR ADVANT Discharge Planning Comments: CM met with patient at bedside. Patient states she lives at home alone and plans to return to their home upon discharge. Patient denies any discharge needs at this time. CM will continue to follow and assist as needed with discharge planning / needs. Offset Press Operator: Pia Vazquez DCPIA - Discharge Planning Initial Assessment Updated by [email or web address]: Pia Vazquez on 01/07/19 10:29 am * Is the patient Alert and Oriented? Yes * How many steps to enter\exit or inside your home? * PCP BARBA * Pharmacy [facility] * Preadmission Environment Home with Family * ADLs Independent * List name and contact numbers for known caregivers / representatives who currently or will assist patient after discharge: AXEL CLEMENTE - [place] - [phone] * Verbal permission to speak to the caregivers and representatives has been obtained from the patient. N/A * Community resources currently utilized None * Additional services required to return to the preadmission environment? No * Can the patient safely return to the preadmission environment? Yes * Has this patient been hospitalized within the prior 30 days at any hospital? No Last DP export: 01/07/19 9:28 am Patient Name: TEMO CLEMENTE Page 99580 at 1036 All edits/amendments must be made on the electronic document DICTATION DATE: 01/07/19 1036 SCRAP BREAKER: RK 01/07/19 1036 RPT#: [id number] DC DATE: STATUS: ADM IN [facility] [address] [place] [address] END OF REPORT
[2019-01-07 12:11] LABS: BASOPHILS 0.1 % (0-2); EOSINOPHILS 0.1 % (0-7); HEMATOCRIT 38.1 % (36.0-48.0); HEMOGLOBIN 12.6 g/dL (12-16); IMMATURE GRANULOCYTES 0.4 % (0-5); LYMPHOCYTES 4.2 % (15-50); MCH 30.7 pg (26.0-34.0); MCHC 33.1 g/dL (31.0-37.0); MEAN PLATELET VOLUME 11.1 fL (7.4-10.4); MONOCYTES 3.1 % (2-11); NEUTROPHILS 92.1 % (40-80); PLATELET COUNT 152 10x3/uL (130-400); WBC 18.8 10x3/uL (4.8-10.8)
[2019-01-07 12:13] LABS: ACLA - IGG AB <9 GPL U/mL (0-14); ACLA - IGM AB <9 MPL U/mL (0-12)
[2019-01-07 12:15] LABS: MCV 92.9 fL (80.0-100.0)
[2019-01-07 12:26] LABS: APTT 45.7 SECONDS (22.8-39.4); INR 1.28 (0.85-1.17); PROTIME 15.4 SECONDS (11.6-15.0)
[2019-01-07 14:06] LABS: INR 1.31 (0.85-1.17); PROTIME 15.7 SECONDS (11.6-15.0)
[2019-01-07 14:07] LABS: APTT 39.6 SECONDS (22.8-39.4)
--- NOTE | 2019-01-07 18:28 | NUR ---
TRANSFER TO ROOM 2129. REPORT GIVEN TO ONEIL MURPHY. LAB HERE TO DRAW LABS. ORDERS INSTRUCTED ON HEPARIN TO ONEIL.
--- NOTE | 2019-01-07 18:42 | NUR ---
NEW PATIENT TRANSFER FROM ICU. PATIENT TO ROOM VIA AND HOPSITAL PERSONNEL. PATIENT IS AWAKE, ALERT AND ORIENTED X 4. PATIENT IS STABLE AND VSS. PATIENT IS STABLE AND VSS. PATIENT DENIES ANY NEEDS OR PAIN. WILL CONTINUE WITH PLAN OF CARE. SR UP X2 BED IN LOW POSITION AND CALL LIGHT IN REACH.
[2019-01-07 18:55] LABS: INR 1.28 (0.85-1.17); PROTIME 15.4 SECONDS (11.6-15.0)
[2019-01-07 18:56] LABS: APTT 50.9 SECONDS (22.8-39.4)
[2019-01-07 19:09] LABS: BASOPHILS 0 % (0-2); EOSINOPHILS 0 % (0-7); HEMATOCRIT 31.6 % (36.0-48.0); HEMOGLOBIN 10.5 g/dL (12-16); IMMATURE GRANULOCYTES 0.4 % (0-5); LYMPHOCYTES 6.4 % (15-50); MCH 30.3 pg (26.0-34.0); MCHC 33.2 g/dL (31.0-37.0); MCV 91.1 fL (80.0-100.0); MEAN PLATELET VOLUME 11.2 fL (7.4-10.4); MONOCYTES 5.1 % (2-11); NEUTROPHILS 88.1 % (40-80); RBC 3.47 10x6/uL (4.00-5.40); RDW 14.2 % (11.5-14.5); WBC 15.8 10x3/uL (4.8-10.8)
[2019-01-07 19:10] LABS: PLATELET COUNT 120 10x3/uL (130-400)
--- NOTE | 2019-01-07 21:54 | NUR ---
PATIENT LAYING IN BED TALKING ON THE PHONE. NO COMPLAINTS AT THIS TIME. NO DISTRESS NOTED.
[2019-01-08 01:14] LABS: MCH 30.5 pg (26.0-34.0); MCHC 33.3 g/dL (31.0-37.0); MCV 91.5 fL (80.0-100.0); MEAN PLATELET VOLUME 10.9 fL (7.4-10.4); RBC 3.28 10x6/uL (4.00-5.40); RDW 14.3 % (11.5-14.5); WBC 13.9 10x3/uL (4.8-10.8)
--- NOTE | 2019-01-08 03:10 | NUR ---
I have reviewed this patient and I concur with the Shift Assessment completed by the Licensed Practical Nurse today this shift.
[2019-01-08 05:32] VITALS: BP 109/49
[2019-01-08 06:28] LABS: CALC OSMOLALITY 282 mosm/kg (275-300); CALCIUM 7.9 mg/dL (8.5-10.1); CARBON DIOXIDE 31.1 mmol/L (21.0-32.0); CHLORIDE - SERUM 105 mmol/L (98-107); CREATININE - SERUM 0.6 mg/dL (0.6-1.3); GLUCOSE 116 mg/dL (74-106); POTASSIUM - SERUM 3.2 mmol/L (3.5-5.1); SODIUM 141 mmol/L (136-145); eGFR NON AFRICAN AMERICAN > 90 mL/min (90-120)
[2019-01-08 06:34] LABS: UREA NITROGEN 16 mg/dL (7-18)
[2019-01-08 06:37] LABS: INR 1.35 (0.85-1.17); PROTIME 16.1 SECONDS (11.6-15.0)
[2019-01-08 06:38] LABS: APTT 58.8 SECONDS (22.8-39.4)
--- NOTE | 2019-01-08 07:10 | NUR ---
REPORT RECIEVED FROM MACHINE STAMPER AND PATIENT CARE ASSUMED. PATIENT LAYING ON BED ON BACK WITH EYES CLOSED AND BREATHING EVENLY. PATIENT IS STABLE AND VSS. WILL CONTINUE WITH PLAN OF CARE. SR UP X 2 BED IN LOW POSITION AND CALL LIGHT IN REACH.
[2019-01-08 07:48] VITALS: BP 119/48
--- NOTE | 2019-01-08 09:00 | NUR ---
PATIENT IS AWAKE, ALERT AND ORIENTED X 4. LARGE AREA OF BRUISING TO GROIN.NO BLEEDING OR HEMATOMA NOTED. PATIENT DENIES ANY NEEDS OR PAIN. PATIENT IS STABLE AND VSS. WILL CONTINUE TO MONITOR. SR UP X 2 BED IN LOW POSITION AND CALL LIGHT IN REACH.
[2019-01-08 12:29] VITALS: BP 150/59
[2019-01-08 15:50] VITALS: BP 122/47
--- NOTE | 2019-01-08 16:45 | NUR ---
PTT 56.6. PER HEPARIN PROTOCOL, INCREASED HEPARIN DRIP TO 700. WILL CONTINUE TO MONIOTR.
[2019-01-08 20:00] VITALS: BP 137/57
--- NOTE | 2019-01-08 20:20 | NUR ---
PT PTT 59.9. ADJUSTED HEPARIN DRIP UP 100. PT DENIES ANY NEEDS OR PAIN AT THIS TIME. NO S/S OF DISTRESS. WILL CONTINUE TO MONITOR.
[2019-01-09] VITALS: BP 138/54
[2019-01-09 02:58] LABS: HEMATOCRIT 30.8 % (36.0-48.0); HEMOGLOBIN 10.4 g/dL (12-16); MCH 30.6 pg (26.0-34.0); MCHC 33.8 g/dL (31.0-37.0); MCV 90.6 fL (80.0-100.0); RBC 3.4 10x6/uL (4.00-5.40); RDW 14.2 % (11.5-14.5); WBC 12.2 10x3/uL (4.8-10.8)
[2019-01-09 03:22] LABS: CALC OSMOLALITY 277 mosm/kg (275-300); CARBON DIOXIDE 29.6 mmol/L (21.0-32.0); CHLORIDE - SERUM 105 mmol/L (98-107); CREATININE - SERUM 0.8 mg/dL (0.6-1.3); GLUCOSE 132 mg/dL (74-106); SODIUM 137 mmol/L (136-145); UREA NITROGEN 18 mg/dL (7-18); eGFR NON AFRICAN AMERICAN 81 mL/min (90-120)
[2019-01-09 04:30] VITALS: BP 140/58
--- NOTE | 2019-01-09 04:32 | NUR ---
I have reviewed this patient and I concur with the Shift Assessment completed by the Licensed Practical Nurse today this shift.
--- NOTE | 2019-01-09 07:40 | NUR ---
A/A/OX4. DENIES ANY PAIN OR DISCOMFORT AND VOICES NO REQUESTS. LARGE AREA OF BRUISING RIGHT GROIN UP TO LOWER RIGHT ABD SOFT AND NONTENDER. ASSESSMENT COMPLETED. BED LOW AND CALL LIGHT IN REACH.
[2019-01-09 08:00] LABS: INR 1.57 (0.85-1.17); PROTIME 18.2 SECONDS (11.6-15.0)
[2019-01-09 08:09] LABS: APTT 114.3 SECONDS (22.8-39.4)
--- NOTE | 2019-01-09 09:00 | NUR ---
NEW PTT READING OF 114. HEPARIN DRIP STOPPED FOR 30 MIN
--- NOTE | 2019-01-09 09:30 | NUR ---
HEPARIN DRIP RESTARTED AT RATE OF 7CC HR PER PROTOCOL. NEW PTT WILL BE DRAWN AT 1530.
[2019-01-09 09:40] VITALS: BP 132/75
--- NOTE | 2019-01-09 13:04 | NUR ---
Nutrition Follow Up: Chart reviewed Diet: Regular PO Intake: 75% meal avg No BM since admit Wt gain noted Labs reviewed Meds noted including D5 NS @ 50 ml/hr, Solu Medrol Rec continue current diet. RD following.
[2019-01-09 13:14] VITALS: BP 136/57
--- NOTE | 2019-01-09 17:30 | NUR ---
HEP DRIP STARTED BACK AT 6CC HR PER HEPARIN PROTOCOL.
[2019-01-09 17:45] VITALS: BP 138/59
--- NOTE | 2019-01-09 17:50 | NUR ---
1700 PTT READING 92. HEPARIN GTT STOPPED FOR 30 MIN.
[2019-01-09 20:00] VITALS: BP 147/57
--- NOTE | 2019-01-09 20:00 | NUR ---
ROUNDS COMPLETED, VSS, AAOX4. RR EVEN AND UNLABORED. HEPARIN Gtt INFUSING PER PROTOCOL. PT ON CRA OFFICER PRN DILUADID. PT RIGHT GROIN TO LOWER ABDOMEN APPEARS BRUISED. PT DENIES ANY PAIN NOR TENDERNESS AT THIS TIME. VANILLA ICE-CREAM PROVIDED PER PT REQUEST. PT DENIES ANY FURTHER NEED FOR COMFORT CARE. WILL CPOC. CL IN REACH, BED IN LOW, SR UP X2.
--- NOTE | 2019-01-09 23:45 | NUR ---
PT APTT 68.2. NO CHANGES MADE AT THIS TIME PER HEPARIN PROTOCOL. WILL CTM. CL IN REACH. BED IN LOW.
[2019-01-10] VITALS: BP 132/49
[2019-01-10 04:00] VITALS: BP 142/53
[2019-01-10 05:51] LABS: CALC OSMOLALITY 282 mosm/kg (275-300); CARBON DIOXIDE 28.2 mmol/L (21.0-32.0); CHLORIDE - SERUM 105 mmol/L (98-107); CREATININE - SERUM 0.8 mg/dL (0.6-1.3); GLUCOSE 136 mg/dL (74-106); SODIUM 140 mmol/L (136-145); UREA NITROGEN 18 mg/dL (7-18); eGFR NON AFRICAN AMERICAN 81 mL/min (90-120)
--- NOTE | 2019-01-10 06:43 | NUR ---
PT C/O PIV HURTING. REMOVED THE OLD IV, APPLIED 2X2 GAUZE AND TAPED. RE-SITED A NEW PIV ON L.WRIST 22G X1 STICK. PT TOLERATE WELL. PT DENIES ANY FURTHER NEEDS AT THIS TIME. WILL CPOC.
--- NOTE | 2019-01-10 07:30 | NUR ---
A/A/OX4. DENIES ANY PAIN OR DISCOMFORT. HEPARIN DRIP INTACT AND INFUSING AT 6CC HR. NO REQUESTS VOICED AT PRESENT TIME. ASSESSMENT COMPLETED. WILL CONTINUE WITH CURRENT POC. PT HOPING TO BE DISCHARGED TODAY.
[2019-01-10 07:54] VITALS: BP 116/51
[2019-01-10 10:06] LABS: INR 3.53 (0.85-1.17); PROTIME 34.6 SECONDS (11.6-15.0)
[2019-01-10 11:40] VITALS: BP 129/52
[2019-01-10] MEDS ORDERED: PLAVIX75 MG PO (12:40)
[2019-01-10] MEDS ORDERED: COUMADIN5 MG PO (12:40)
[2019-01-10] MEDS ORDERED: ASPIRIN EC81 M1 PO (12:40)
[2019-01-10] MEDS ORDERED: FOLIC ACID1 MG PO (12:42)
--- NOTE | 2019-01-10 16:19 | NUR ---
DISCHARGE INSTRUCTIONS REVIEWED WITH PT AND HAS NO QUESTIONS. VERBALIZES UNDERSTANDING OF MEDICATIONS AND RESTRICTIONS. IV DC'D WITH TIP INTACT. LEFT FLOOR VIA W/C WITH ALL PERSONAL BELONGINGS. LEFT FACILITY VIA PRIVATE VEHICLE WITH A FRIEND.
--- NOTE | 2019-01-12 09:27 | MORECARE ---
CASE MANAGEMENT DISCHARGE SUMMARY PATIENT: TEMO CLEMENTE UNIT: [id number] ADM DATE: 01/05/19 AGE: 48 : 70 SEX: F ROOM/BED: D.0655 AUTHOR: LAILA,DOC PHYSICIAN: REFERRING PHYSICIAN: ARNAUD CADENA MD DATE OF SERVICE: 01/12/19 Discharge Plan Patient Name: TEMO CLEMENTE Facility: [facility]:[place] : 1970 Planned Disposition: Home Anticipated Discharge Date: 01/10/19 Discharge Date: 01/10/2019 Expected LOS: 5 Initial Reviewer: [email or web address] Initial Review Date: 01/06/2019 Generated: 01/12/19 10:26 am Comments DCP- Discharge Planning Updated by [email or web address]: Pia Vazquez on 01/07/19 9:[address] Patient Name: TEMO CLEMENTE Admission Status: Elective Accout number: [id number] Admission Date: 01-05-2019 : 1970 Admission Diagnosis:PERIPHERAL VASCULAR DISEASE, UNSPECIFIED Attending: ARNAUD CADENA Current LOS: 2 Anticipated DC Date: Planned Disposition: Home Primary Insurance: [employer] CHOICE PPO MCR ADVANT Discharge Planning Comments: CM met with patient at bedside. Patient states she lives at home alone and plans to return to their home upon discharge. Patient denies any discharge needs at this time. CM will continue to follow and assist as needed with discharge planning / needs. Product Development Manager: Pia Vazquez DCPIA - Discharge Planning Initial Assessment Updated by [email or web address]: Pia Vazquez on 01/07/19 10:29 am * Is the patient Alert and Oriented? Yes * How many steps to enter\exit or inside your home? * PCP BARBA * Pharmacy [facility] * Preadmission Environment Home with Family * ADLs Independent * List name and contact numbers for known caregivers / representatives who currently or will assist patient after discharge: AXEL VARELA - [phone] * Verbal permission to speak to the caregivers and representatives has been obtained from the patient. N/A * Community resources currently utilized None * Additional services required to return to the preadmission environment? No * Can the patient safely return to the preadmission environment? Yes * Has this patient been hospitalized within the prior 30 days at any hospital? No Coverage Notice Reviewer: [email or web address] Mert Martell Notice Issued Date-Time: 01/10/2019 13:40 Notice Type: IM Discharge Notice Notice Delivered To: Patient Relationship to Patient: Opal Miner Name: Delivery Method: HAND - Hand Delivered Shahana Days: Prior Verbal Notification: Recipient Understood Notice: Yes Recipient Signature: Yes Med Rec Note Co-signed by Attending: Coverage Notice Comment: Last DP export: 01/07/19 9:36 am Patient Name: TEMO CLEMENTE Page 12042 at 0927 All edits/amendments must be made on the electronic document DICTATION DATE: 01/12/19925 PHOTOGRAPHER ASSISTANT: RK 01/12/19925 RPT#: [id number] DC DATE:01/10/19 STATUS: DIS IN [facility] [address] [place] [address] END OF REPORT
[2019-01-12 19:07] LABS: FACTOR II DNA ANALYSIS Negative (())
== END 2019-01-10 16:21 | disposition home or self-care (01) | DRG 300 ==
LOC: D.CVICU 06:32 → D.OPS 06:32 → D.RAD 06:32 → D.CVICU 10:49 → D.OPS 10:50 → D.CVICU 10:51 → D.RAD 13:00 → D.M2 01-07 18:28
PROVIDERS: Internal Medicine Hematology & Oncology; Internal Medicine Nephrology; Radiology Diagnostic Radiology; ADMIT General Practice; ATTEND General Practice
PROC: B40F1ZZ Plain Radiography of Right Lower Extremity Arteries using Low Osmolar Contrast (ICD-10-PCS; 2019-01-05)
PROC: 3E05317 Introduction of Other Thrombolytic into Peripheral Artery, Percutaneous Approach (ICD-10-PCS; principal; 2019-01-05 09:00)
DX: I74.5 Embolism and thrombosis of iliac artery (principal); I50.22 Chronic systolic (congestive) heart failure; T88.6XXA Anaphylactic reaction due to adverse effect of correct drug or medicament properly administered, initial encounter; I73.9 Peripheral vascular disease, unspecified; R00.1 Bradycardia, unspecified; E11.9 Type 2 diabetes mellitus without complications; J44.9 Chronic obstructive pulmonary disease, unspecified; I27.20 Pulmonary hypertension, unspecified; Z85.118 Personal history of other malignant neoplasm of bronchus and lung; I07.1 Rheumatic tricuspid insufficiency; I95.9 Hypotension, unspecified; T50.8X5A Adverse effect of diagnostic agents, initial encounter

== ENCOUNTER 2019-01-19 08:00 | Outpatient (CLI) | payer MEDICARE, MEDICAID ==
[2019-01-06 10:20] VITALS: BMI 22.4
[~2019-01-19 08:00] MED LIST changes: +ASPIRIN EC81 M1 PO; +COUMADIN5 MG PO; +FOLIC ACID1 MG PO
== END 2019-01-19 09:00 | disposition home or self-care (01) ==
LOC: D.MAMMO 08:00
PROVIDERS: ATTEND Family Medicine
DX: R92.8 Other abnormal and inconclusive findings on diagnostic imaging of breast (principal)

== ENCOUNTER 2019-02-17 10:13 | Inpatient (IN) | payer MEDICARE, MEDICAID ==
--- NOTE | 2019-02-16 19:31 | NUR ---
REPORT RECEIVED, SHIFT ASSESMENT COMPLETED PER FLOW SHEET. AAOX4. PPP. RT WRIST PIV INFUSING HEPARIN, HELD AT THIS TIME PER DAY SHIFT RN PER PROTOCOL, WILL RESUME ONCE 30 MINS ARE UP. LT WRIS PIV SALINE LOCKED. SEE FLOW SHEET FOR COMPLETE ASSESSMENT. DENIES PAIN OR NEEDS. CALL LIGHT WITHIN REACH. WILL CONTINUE TO MONITOR.
[2019-02-17] VITALS (13 sets, daily range): BP systolic 91–138; BP diastolic 40–71; BMI 20.2
[~2019-02-17 10:13] MED LIST changes: -DESERYL100 MG PO; +TRAZODONE HCL300 MG PO
[2019-02-17 11:13] LABS: HEMATOCRIT 41.8 % (36.0-48.0); MCH 30.7 pg (26.0-34.0); MCHC 33.5 g/dL (31.0-37.0); MCV 91.7 fL (80.0-100.0); MEAN PLATELET VOLUME 10.3 fL (7.4-10.4); RBC 4.56 10x6/uL (4.00-5.40); RDW 14.4 % (11.5-14.5); WBC 6.9 10x3/uL (4.8-10.8)
[2019-02-17 11:17] LABS: ANION GAP 13.9 mmol/L (8-16); CALCIUM 8.7 mg/dL (8.5-10.1); CARBON DIOXIDE 25.1 mmol/L (21.0-32.0); CREATININE - SERUM 0.9 mg/dL (0.6-1.3)
[2019-02-17 12:16] LABS: APTT 29.4 SECONDS (22.8-39.4); INR 1.33 (0.85-1.17); PROTIME 15.9 SECONDS (11.6-15.0)
--- NOTE | 2019-02-17 12:24 | NUR ---
20g IV STARTED TO LEFT AND RIGHT WRISTS. HEPARIN GTT STARTED IN RIGHT WRIST.
--- NOTE | 2019-02-17 16:01 | NUR ---
PT C/O NAUSEA. HAD JUST RETURNED FROM TOILETING AND WAS GETTING INTO BED WHEN SAID FELT LIKE SHE WAS GOING TO 'BE SICK' PROVIDED WITH TRASH CAN IN REACH AND THEN EMESIS BAG. VOMIT X3. SMALL AMOUNTS. ORANGE-TINGED. PT HAD RECENTLY HAD CUP OF ORANGE JELLO. NO EVIDENCE OF BLOOD. PT GIVEN ZOFRAN. REPOSITIONED SELF IN BED. NO ADDITIONAL VOMITTING. CALL LIGHT IN REACH. AND NEW EMESIS BAG PROVIDED.
--- NOTE | 2019-02-17 16:38 | NUR ---
PT ORDERED PROTONIX GIVEN. ALSO INFORMED PT THAT WOULD NEED TO COLLECT URINE SAMPLE NEXT TIME HAD TO TOILET. PLACED RECEPTICAL IN ROOM FOR COLLECTION.
--- NOTE | 2019-02-17 18:15 | NUR ---
COAL BRIQUETTE MACHINE OPERATOR AT BEDSIDE TO DRAW PTT
--- NOTE | 2019-02-17 19:01 | NUR ---
PTT HAVE NOT YET RESULTED. CALLED AND SPOKE WITH RODNEY IN LAB. ESTIMATES ANOTHER 10 MINUTES BEFORE RUN.
--- NOTE | 2019-02-17 19:31 | NUR ---
REPORT RECEIVED, SHIFT ASSESSMENT COMPLETED PER FLOW SHEET. AAOX4. PPP. RT WRIST PIV INFUSING HEPARIN, HELD AT THIS TIME PER DAY SHIFT RN PER PROTOCOL, WILL RESUME ONCE 30 MINS ARE UP. LT WRIST PIV SALINE LOCKED. SEE FLOW SHEET FOR COMPLETE ASSESSMENT. DENIES PAIN OR NEEDS. CALL LIGHT WITHIN REACH. WILL CONTINUE TO MONITOR.
--- NOTE | 2019-02-17 21:10 | NUR ---
URINE SPECIMEN COLLECTED AND SENT TO LAB.
--- NOTE | 2019-02-17 21:22 | NUR ---
PATIENT AWAKE IN BED, WATCHING TV. SCHEDULED MEDS GIVEN, WATER PROVIDED. NO ACUTE DISTRESS NOTED. DENIES NEEDS. CALL LIGHT WITHIN REACH.
[2019-02-17 21:47] LABS: APPEARANCE CLEAR (CLEAR); BILIRUBIN NEGATIVE (NEGATIVE); COLOR YELLOW (YELLOW); GLUCOSE NEGATIVE (NEGATIVE); KETONE NEGATIVE (NEGATIVE); NITRITE NEGATIVE (NEGATIVE); PROTEIN NEGATIVE (NEGATIVE); SPECIFIC GRAVITY 1.015 (1.005-1.020); UROBILINOGEN NORMAL (NORMAL)
--- NOTE | 2019-02-17 23:10 | NUR ---
REASSESSMENT COMPLETED PER FLOW SHEET, SEE FOR DETAILS. NO ACUTE CHANGES NOTED. DENIES PAIN OR NEEDS. PPP. CALL LIGHT WITHIN REACH. WILL CONTINUE TO MONITOR.
[2019-02-18] VITALS (24 sets, daily range): BP systolic 78–141; BP diastolic 33–73; BMI 21.1
--- NOTE | 2019-02-18 | NUR ---
BP READING 81/41. FOUND PATIENT SLEEPING WITH ARM FLEXED. BP CUFF REPOSITIONED AND REASSESSED, INSTRUCTED PATIENT TO LAY ARM STRAIGHT WHILE BP TAKING, READING OF 103/44 OBTAINED. WILL CONTINUE TO MONITOR. DENIES NEEDS. CALL LIGHT WITHIN REACH.
--- NOTE | 2019-02-18 02:02 | NUR ---
CALLED LAB ABOUT SCHEDULED BLOOD DRAW, SPOKE TO ROC AND INFORMED HER THAT NO ONE HAS COME UP TO DRAW BLOOD SHE STATED THAT SHE WILL HAVE SOMEONE COME TO UNIT TO OBTAIN BLOOD DRAW.
--- NOTE | 2019-02-18 02:11 | NUR ---
LAB PERSONNEL AT BEDSIDE FOR BLOOD DRAW. PATIENT DENIES NEEDS.
--- NOTE | 2019-02-18 03:05 | NUR ---
REASSESSMENT COMPLETED PER FLOW SHEET, SEE FOR DETAILS. SPOKE TO ROC FROM LAB, PTT >200, HOLDING HEPARIN FOR 60 MINS AND DECREASING BY 300 UNITS/HR PER PROTOCOL. PPP. DENIES NEEDS. CALL LIGHT WITHIN REACH. WILL CONTINUE TO MONITOR.
--- NOTE | 2019-02-18 03:08 | NUR ---
CALLED AND SPOKE TO DR. MARROQUIN, INFORMED HIM OF CRITICAL HIGH PTT LEVEL, HE STATED TO FOLLOW HEPARIN INFUSION PROTOCOL.
--- NOTE | 2019-02-18 05:00 | NUR ---
DENIES NEEDS AT THIS TIME, CALL LIGHT WITHIN REACH. WILL CONTINUE TO MONITOR.
[2019-02-18 06:34] LABS: BASOPHILS 0.8 % (0-2); EOSINOPHILS 1.4 % (0-7); HEMATOCRIT 39.6 % (36.0-48.0); HEMOGLOBIN 13.2 g/dL (12-16); IMMATURE GRANULOCYTES 0.2 % (0-5); LYMPHOCYTES 50.4 % (15-50); MCH 30.9 pg (26.0-34.0); MCHC 33.3 g/dL (31.0-37.0); MCV 92.7 fL (80.0-100.0); MEAN PLATELET VOLUME 10.4 fL (7.4-10.4); MONOCYTES 7.6 % (2-11); NEUTROPHILS 39.6 % (40-80); PLATELET COUNT 179 10x3/uL (130-400); RBC 4.27 10x6/uL (4.00-5.40); RDW 14.2 % (11.5-14.5); WBC 6.6 10x3/uL (4.8-10.8)
[2019-02-18 07:19] LABS: ANION GAP 13.1 mmol/L (8-16); CALCIUM 8.3 mg/dL (8.5-10.1); CARBON DIOXIDE 26.8 mmol/L (21.0-32.0); POTASSIUM - SERUM 3.9 mmol/L (3.5-5.1)
--- NOTE | 2019-02-18 10:30 | NUR ---
VASCULAR ACCESS NOTIFIED OF NEED FOR PICC LINE PLACEMENT
--- NOTE | 2019-02-18 10:36 | NUR ---
HEPARIN INFUSION CHANGED PER PROTOCOL. NEW ORDER FOR PTT PLACED.
--- NOTE | 2019-02-18 13:04 | NUR ---
PICC LINE PLACED BY VASCULAR ACCESS NURSE. CHEST XRAY OBTAINED TO VERIFY PLACEMENT. PT THEN ASSISTED UP TO CHAIR AND LUNCH TRAY PROVIDED.
--- NOTE | 2019-02-18 17:17 | NUR ---
PT UP TO CHAIR FOR DINNER. ASSISTED TO TOILET AND PT RETURNING TO BED.
--- NOTE | 2019-02-18 18:26 | NUR ---
PT HAD EPISODE VOMITTING. 250 ML CHUNKY VOMIT. PT STATES FEELS BETTER NOW.
--- NOTE | 2019-02-18 20:38 | NUR ---
PATIENT UP TO BATHROOM WITHOUT ASSIST. CALL LIGHT WITHIN REACH, BED IN LOW POSITION.
--- NOTE | 2019-02-18 23:23 | NUR ---
PTT DRAWN FROM PICC LINE AND SENT TO LAB. PATIENT DENIES ANY NEEDS AT THIS TIME REASSESSMENT COMPLETE. CALL LIGHT WITHIN REACH, BED IN LOW POSITION.
[2019-02-19] VITALS (25 sets, daily range): BP systolic 80–123; BP diastolic 35–70
[2019-02-19 06:37] LABS: CALC OSMOLALITY 281 mosm/kg (275-300); CALCIUM 8.5 mg/dL (8.5-10.1); CARBON DIOXIDE 29.3 mmol/L (21.0-32.0); CHLORIDE - SERUM 106 mmol/L (98-107); CREATININE - SERUM 0.8 mg/dL (0.6-1.3); GLUCOSE 101 mg/dL (74-106); POTASSIUM - SERUM 3.7 mmol/L (3.5-5.1); SODIUM 142 mmol/L (136-145); UREA NITROGEN 11 mg/dL (7-18); eGFR NON AFRICAN AMERICAN 81 mL/min (90-120)
[2019-02-19 06:48] LABS: BASOPHILS 0.5 % (0-2); EOSINOPHILS 1.2 % (0-7); HEMATOCRIT 37.3 % (36.0-48.0); HEMOGLOBIN 12.1 g/dL (12-16); LYMPHOCYTES 45.6 % (15-50); MCH 30.3 pg (26.0-34.0); MCHC 32.4 g/dL (31.0-37.0); MCV 93.3 fL (80.0-100.0); MEAN PLATELET VOLUME 10.2 fL (7.4-10.4); MONOCYTES 8.6 % (2-11); NEUTROPHILS 44.1 % (40-80); PLATELET COUNT 176 10x3/uL (130-400); RDW 14.2 % (11.5-14.5); WBC 6.5 10x3/uL (4.8-10.8)
--- NOTE | 2019-02-19 08:00 | NUR ---
PTT RESULTS FOR THIS AM IS 81.5, PER PROTOCOL, RATE TO HAVE NO CHANGES. WILL RUN AT CURRENT RATE. NO ACUTE DISTRESS NOTED. WILLCONTINUE PLAN OF CARE.
--- NOTE | 2019-02-19 09:21 | NUR ---
ATTEMPTED TO FLUSH RT WRIST PERIPHERAL IV, NOTED IT WOULD NOT FLUSH AND PT COMPLAINT OF FEELING DISCOMFORT DURING ATTEMPT TO FLUSH IV THERFORE IV REMOVED, CATHETER TIP INTACT. NO ACUTE DISTRESS NOTED. WILL CONTINUE PLAN FO CARE.
--- NOTE | 2019-02-19 10:15 | NUR ---
PER PHYSICAIN ORDERS, PT IS ON CLR LIQUID DIET.
[2019-02-19 10:34] LABS: BASOPHILS 0.3 % (0-2); EOSINOPHILS 0.7 % (0-7); HEMATOCRIT 36.9 % (36.0-48.0); IMMATURE GRANULOCYTES 0.1 % (0-5); LYMPHOCYTES 26.9 % (15-50); MCH 30.5 pg (26.0-34.0); MCHC 32.5 g/dL (31.0-37.0); MCV 93.9 fL (80.0-100.0); MEAN PLATELET VOLUME 10.3 fL (7.4-10.4); MONOCYTES 7.1 % (2-11); NEUTROPHILS 64.9 % (40-80); PLATELET COUNT 169 10x3/uL (130-400); RBC 3.93 10x6/uL (4.00-5.40); RDW 14.1 % (11.5-14.5); WBC 7.3 10x3/uL (4.8-10.8)
[2019-02-19 10:39] LABS: INR 1.29 (0.85-1.17); PROTIME 15.5 SECONDS (11.6-15.0)
[2019-02-19 10:40] LABS: APTT 72.1 SECONDS (22.8-39.4)
[2019-02-19 10:44] LABS: ALBUMIN 2.9 g/dL (3.4-5.0); BILIRUBIN - TOTAL 0.24 mg/dL (0.2-1.3); CALCIUM 8.2 mg/dL (8.5-10.1); CARBON DIOXIDE 27.4 mmol/L (21.0-32.0); CREATININE - SERUM 0.9 mg/dL (0.6-1.3); POTASSIUM - SERUM 3.4 mmol/L (3.5-5.1); PROTEIN - SERUM 5.8 g/dL (6.4-8.2)
--- NOTE | 2019-02-19 11:00 | NUR ---
CHG BATH PROVIDED AT THIS TIME. PT BATHED SELF INDEPENDENTLY. NO ACUTE DISTRESS NOTED. WILL CONTINUE PLAN OF CARE.
--- NOTE | 2019-02-19 13:20 | NUR ---
LT WRIST PERIPHERAL IV NOTED TO CREATE DISCOMFORT TO PT DURING INFUSION WITHOUT ANY S/S INFILTRATION OR LEAKAGE AROUND CATHETER SITE. SEDONARY IV PLACED TO LT FOREARM, HEPARIN GTT NOW RUNNING THROUGH NEW IV ACCESS SITE. IV LINES CHANGED. NO ACUTE DISTRESS NOTED. WILL CONTINUE PLAN OF CARE.
--- NOTE | 2019-02-19 15:53 | NUR ---
UP IN BED WATCHING TV AT THIS TIME. NO ACUTE DISTRESS NOTED. CALL LIGHT IN REACH. WILL CONTINUE PLAN OF CARE.
--- NOTE | 2019-02-19 17:20 | NUR ---
LYING IN BED WATCHING TV AT THIS TIME. NO ACUTE DISTRESS NOTED. WILL CONTINUE PLAN OF CARE.
--- NOTE | 2019-02-19 18:26 | NUR ---
UP IN BED WATCHING TV AT THIS TIME. NO ACUTE DISTRESS NOTED. WILL CONTINUE PLAN OF CARE.
--- NOTE | 2019-02-19 20:03 | MORECARE ---
CASE MANAGEMENT DISCHARGE SUMMARY PATIENT: TEMO CLEMENTE UNIT: [id number] ADM DATE: 02/17/19 AGE: 48 : 70 SEX: F ROOM/BED: [facility] AUTHOR: ANTONIA ULLOA PHYSICIAN: REFERRING PHYSICIAN: KIAH MARROQUIN MD DATE OF SERVICE: 02/19/19 Discharge Plan Patient Name: TEMO CLEMENTE Facility: [facility]:[place] : 1970 Planned Disposition: Home Anticipated Discharge Date: Discharge Date: Expected LOS: Initial Reviewer: [email or web address] Initial Review Date: 02/19/2019 Generated: 02/19/19 9:03 pm Patient Name: TEMO CLEMENTE Page 86527 at 2003 All edits/amendments must be made on the electronic document DICTATION DATE: 02/19/192001 HOGSHEAD HOOPER: RK 02/19/192001 RPT#: [id number] DC DATE: STATUS: ADM IN [facility] [address] [place] [address] END OF REPORT
--- NOTE | 2019-02-19 20:10 | MORECARE ---
CASE MANAGEMENT DISCHARGE SUMMARY PATIENT: TEMO CLEMENTE UNIT: [id number] ADM DATE: 02/17/19 AGE: 48 : 70 SEX: F ROOM/BED: [facility] AUTHOR: LAILA,DOC PHYSICIAN: REFERRING PHYSICIAN: KIAH MARROQUIN MD DATE OF SERVICE: 02/19/19 Discharge Plan Patient Name: TEMO CLEMENTE Facility: [facility]:[place] : 1970 Planned Disposition: Home Anticipated Discharge Date: Discharge Date: Expected LOS: Initial Reviewer: [email or web address] Initial Review Date: 02/19/2019 Generated: 02/19/19 9:10 pm Comments DCP- Discharge Planning Updated by [email or web address]: Pia Vazquez on 02/19/19 7:[address] Patient Name: TEMO CLEMENTE Admission Status: Urgent Accout number: [id number] Admission Date: 02-17-2019 : 1970 Admission Diagnosis:PERIPHERAL VASCULAR DISEASE, UNSPECIFIED Attending: KIAH MARROQUIN Current LOS: 2 Anticipated DC Date: Planned Disposition: Home Primary Insurance: [employer] CHOICE PPO MCR ADVANT Discharge Planning Comments: CM met with patient at bedside after explaining CM role and obtaining verbal consent. Patient lives at home with her daughter and plans to return there upon discharge. Patient feels this would be a safe discharge. CM discussed availability / needs of home health and medical equipment. Patient denies any discharge needs at this time. Patient states she will have her family drive her home upon discharge. CM will continue to follow and assist as needed with discharge planning / needs. Software Applications Designer: Pia Vazquez DCPIA - Discharge Planning Initial Assessment Updated by [email or web address]: Pia Vazquez on 02/19/19 8:03 pm * Is the patient Alert and Oriented? Yes * How many steps to enter\exit or inside your home? * PCP JAMESON * Pharmacy [facility] * Preadmission Environment Home with Family * ADLs Independent * List name and contact numbers for known caregivers / representatives who currently or will assist patient after discharge: AXEL CLEMENTE - SON - [phone] * Verbal permission to speak to the caregivers and representatives has been obtained from the patient. Yes * Community resources currently utilized None * Additional services required to return to the preadmission environment? No * Can the patient safely return to the preadmission environment? Yes * Has this patient been hospitalized within the prior 30 days at any hospital? No Last DP export: 02/19/19 7:03 p Patient Name: TEMO CLEMENTE Page 23265 at 2009 All edits/amendments must be made on the electronic document DICTATION DATE: 02/19/192008 MANAGER CRITICAL CARE UNIT: RK 02/19/192008 RPT#: [id number] DC DATE: STATUS: ADM IN [facility] [address] [place] [address] END OF REPORT
--- NOTE | 2019-02-19 20:35 | NUR ---
HEPARIN STOPPED PER ORDER. CALLED DR. MARROQUIN WITH PTT RESULTS FROM 1854 LAB DRAW FOR PTT. NEW ORDERS RECEIVED FOR PTT LAB AT 0000 AND 0600 IN AM.
[2019-02-20] VITALS (23 sets, daily range): BP systolic 83–139; BP diastolic 39–70
[2019-02-20 06:11] LABS: BASOPHILS 0.4 % (0-2); EOSINOPHILS 2.1 % (0-7); HEMATOCRIT 36.2 % (36.0-48.0); HEMOGLOBIN 11.8 g/dL (12-16); IMMATURE GRANULOCYTES 0.1 % (0-5); LYMPHOCYTES 38.7 % (15-50); MCH 30.2 pg (26.0-34.0); MCHC 32.6 g/dL (31.0-37.0); MCV 92.6 fL (80.0-100.0); MEAN PLATELET VOLUME 9.8 fL (7.4-10.4); MONOCYTES 8.7 % (2-11); PLATELET COUNT 151 10x3/uL (130-400); RBC 3.91 10x6/uL (4.00-5.40); RDW 14.2 % (11.5-14.5)
[2019-02-20 06:18] LABS: CALC OSMOLALITY 287 mosm/kg (275-300); CALCIUM 7.9 mg/dL (8.5-10.1); CARBON DIOXIDE 31.1 mmol/L (21.0-32.0); CHLORIDE - SERUM 107 mmol/L (98-107); CREATININE - SERUM 0.8 mg/dL (0.6-1.3); POTASSIUM - SERUM 3.6 mmol/L (3.5-5.1); SODIUM 145 mmol/L (136-145); UREA NITROGEN 9 mg/dL (7-18); eGFR NON AFRICAN AMERICAN 81 mL/min (90-120)
[2019-02-20 06:19] LABS: GLUCOSE 96 mg/dL (74-106)
--- NOTE | 2019-02-20 06:26 | NUR ---
DR. DOUGLAS EXITED ICU WITH PATIENT FOR OR. PATIENT ALERT AND ORIENTED WITHOUT ANY CHANGES FROM PREVIOUS ASSESSMENT.
--- NOTE | 2019-02-20 10:28 | NUR ---
Nutrition Follow Up: Chart reviewed. Pt is NPO today for surgery. Pt was eating 67% meal avg on a regular diet. BM: 02/20/19 Wt stable Labs reviewed Meds noted including Reglan Rec advancing CURTIS as medically feasible. RD following.
--- NOTE | 2019-02-20 14:24 | NUR ---
REC'D FROM OR. AROUSES TO VERBAL STIMULI. CONNECTED TO MONITOR AND VS OBTAINED. SEE FLOWSHEET FOR ASSESSMENT.
[2019-02-20 15:25] LABS: HEMATOCRIT 39.2 % (36.0-48.0); HEMOGLOBIN 13.2 g/dL (12-16); MCH 30.5 pg (26.0-34.0); MCHC 33.7 g/dL (31.0-37.0); RBC 4.33 10x6/uL (4.00-5.40); RDW 14.6 % (11.5-14.5)
[2019-02-20 15:28] LABS: WBC 14.1 10x3/uL (4.8-10.8)
[2019-02-20 15:29] LABS: MCV 90.5 fL (80.0-100.0)
[2019-02-20 15:39] LABS: ALBUMIN 2.4 g/dL (3.4-5.0); ALKALINE PHOSPHATASE 33 U/L (46-116); ALT (SGPT) 17 U/L (10-68); BILIRUBIN - TOTAL 0.74 mg/dL (0.2-1.3); CALC OSMOLALITY 287 mosm/kg (275-300); CALCIUM 8.1 mg/dL (8.5-10.1); CARBON DIOXIDE 27.5 mmol/L (21.0-32.0); CHLORIDE - SERUM 111 mmol/L (98-107); CREATININE - SERUM 0.8 mg/dL (0.6-1.3); GLUCOSE 108 mg/dL (74-106); PROTEIN - SERUM 5.1 g/dL (6.4-8.2); SODIUM 145 mmol/L (136-145); UREA NITROGEN 8 mg/dL (7-18); eGFR NON AFRICAN AMERICAN 81 mL/min (90-120)
[2019-02-20 15:40] LABS: POTASSIUM - SERUM 4.2 mmol/L (3.5-5.1)
--- NOTE | 2019-02-20 16:15 | NUR ---
L APICAL CHEST TUBE INSERTED BY DR. MARROQUIN.
--- NOTE | 2019-02-20 19:00 | NUR ---
REPORT RECEIVED CARE ASSUMED ASSESSMENT DONE SEE FLOW SHEET VSS. PT PLACED ON AIR OVERLAY BED BED ZEROED. ICU MONITORS IN PLACE. VSS WILL CONTINUE TO MONTIOR.
[2019-02-21] VITALS (25 sets, daily range): BP systolic 94–140; BP diastolic 40–63
[2019-02-21 02:03] LABS: APPEARANCE CLEAR (CLEAR); COLOR YELLOW (YELLOW)
[2019-02-21 02:04] LABS: BILIRUBIN NEGATIVE (NEGATIVE); GLUCOSE NEGATIVE (NEGATIVE); KETONE NEGATIVE (NEGATIVE); NITRITE NEGATIVE (NEGATIVE); PROTEIN NEGATIVE (NEGATIVE); SPECIFIC GRAVITY 1.025 (1.005-1.020); UROBILINOGEN NORMAL (NORMAL)
--- NOTE | 2019-02-21 02:55 | NUR ---
2100 MEDS GIVEN PER MAR. VSS. 2300 REASSESSMENT DONE SEE FLOW SHEET. VSS. 0100 PT IN BED RESTING NO SIGNS OF ACUTE DISTRESS NOTED. 0300 REASSESSMENT DONE SEE FLOW SHEET VSS.
--- NOTE | 2019-02-21 03:30 | NUR ---
REVIEW OF BLOOD GAS AT THIS TIME. [address] VSS WILL CONTINUE TO MONITOR.
[2019-02-21 06:12] LABS: BASOPHILS 0.2 % (0-2); EOSINOPHILS 0.3 % (0-7); HEMATOCRIT 37.3 % (36.0-48.0); HEMOGLOBIN 12.1 g/dL (12-16); IMMATURE GRANULOCYTES 0.2 % (0-5); LYMPHOCYTES 13.4 % (15-50); MCHC 32.4 g/dL (31.0-37.0); MEAN PLATELET VOLUME 10.6 fL (7.4-10.4); MONOCYTES 6.3 % (2-11); NEUTROPHILS 79.6 % (40-80); PLATELET COUNT 110 10x3/uL (130-400); RBC 4.03 10x6/uL (4.00-5.40); RDW 15.1 % (11.5-14.5); WBC 11.7 10x3/uL (4.8-10.8)
[2019-02-21 06:16] LABS: MCV 92.6 fL (80.0-100.0)
[2019-02-21 06:26] LABS: ALBUMIN 2.1 g/dL (3.4-5.0); BILIRUBIN - TOTAL 0.6 mg/dL (0.2-1.3); CALCIUM 7.6 mg/dL (8.5-10.1); CARBON DIOXIDE 29.5 mmol/L (21.0-32.0); CREATININE - SERUM 0.9 mg/dL (0.6-1.3); POTASSIUM - SERUM 4.5 mmol/L (3.5-5.1)
--- NOTE | 2019-02-21 10:48 | NUR ---
R UPPER ARM PICC DC'Tisha. LENGTH 42CM.
--- NOTE | 2019-02-21 13:50 | NUR ---
L BRACHIAL ART LINE DC'D. MANUAL PRESSURE HELD X 5 MIN. DRESSED WITH 2X2 AND SECURED WITH TAPE.
--- NOTE | 2019-02-21 19:00 | NUR ---
REPORT RECEIVED CARE ASSUMED ASSESSMENT DONE SEE FLOW SHEET VSS NO SIGNS OF ACUTE DISTRESS NOTED. IS 1500. TEACHING PROVIDED ON IMPORTANCE OF IS.
--- NOTE | 2019-02-21 21:00 | NUR ---
1999 DR MARROQUIN INFORMED OF PT STATUS ORDER TO CONTINUE AGGRESSIVE PULMONARY TOILET. 2100 MEDS GIVEN PER OCT NO SIGNS OF ACUTE DISTRESS NOTED WILL CONTINUE TO MONTIOR.
[2019-02-22] VITALS (24 sets, daily range): BP systolic 89–117; BP diastolic 39–60
--- NOTE | 2019-02-22 01:00 | NUR ---
PT IN BED RESTING COMFORTABLEY VSS NO SIGNS OF ACUTE DISTRESS NOTED.
--- NOTE | 2019-02-22 03:00 | NUR ---
0230 ANESTHESIA INFORMED OF EPIDURAL MED LEVEL. 0300 REASSESSMENT DONE SEE FLOW SHEET VSS. WILL CONTINUE TO MONITOR.
--- NOTE | 2019-02-22 05:29 | NUR ---
EXTRACTION MACHINE OPERATOR AT BEDSIDE EPIDURA MED CHANGE
[2019-02-22 05:53] LABS: BASOPHILS 0.1 % (0-2); HEMATOCRIT 32.7 % (36.0-48.0); HEMOGLOBIN 10.4 g/dL (12-16); IMMATURE GRANULOCYTES 0.2 % (0-5); LYMPHOCYTES 12.3 % (15-50); MCH 29.6 pg (26.0-34.0); MCHC 31.8 g/dL (31.0-37.0); MCV 93.2 fL (80.0-100.0); MEAN PLATELET VOLUME 9.9 fL (7.4-10.4); MONOCYTES 8.2 % (2-11); NEUTROPHILS 78.2 % (40-80); PLATELET COUNT 94 10x3/uL (130-400); RBC 3.51 10x6/uL (4.00-5.40); RDW 14.8 % (11.5-14.5); WBC 13.3 10x3/uL (4.8-10.8)
[2019-02-22 06:00] LABS: ALBUMIN 1.9 g/dL (3.4-5.0); ALKALINE PHOSPHATASE 42 U/L (46-116); ALT (SGPT) 22 U/L (10-68); BILIRUBIN - TOTAL 0.76 mg/dL (0.2-1.3); CALC OSMOLALITY 268 mosm/kg (275-300); CALCIUM 7.8 mg/dL (8.5-10.1); CARBON DIOXIDE 28.8 mmol/L (21.0-32.0); CHLORIDE - SERUM 103 mmol/L (98-107); CREATININE - SERUM 0.7 mg/dL (0.6-1.3); GLUCOSE 114 mg/dL (74-106); POTASSIUM - SERUM 4.7 mmol/L (3.5-5.1); PROTEIN - SERUM 4.9 g/dL (6.4-8.2); SODIUM 135 mmol/L (136-145); eGFR NON AFRICAN AMERICAN > 90 mL/min (90-120)
[2019-02-22 06:02] LABS: UREA NITROGEN 8 mg/dL (7-18)
--- NOTE | 2019-02-22 19:00 | NUR ---
REPORT RECEIVED, INITIAL ASSESSMENT COMPLETE, SEE FLOW SHEET, PT AAOx4, EPIDURAL INFUSING PER ORDERS, PT DENIES PAIN, LT SUBCLAVIAL CVL INFUSING MEDS PER MAR, ALL INCISIONS C/D/I, PPP, VSS, WILL CONTINUE TO ASSESS
--- NOTE | 2019-02-22 23:00 | NUR ---
REASSESSMENT COMPLETE PER FLOW SHEET, NO ACUTE CHANGES NOTED, VSS, WILL CONTINUE TO MONITOR
[2019-02-23] VITALS (23 sets, daily range): BP systolic 97–133; BP diastolic 47–73
[2019-02-23 06:04] LABS: HEMATOCRIT 33.2 % (36.0-48.0); HEMOGLOBIN 10.8 g/dL (12-16); MCH 30.1 pg (26.0-34.0); MCHC 32.5 g/dL (31.0-37.0); MCV 92.5 fL (80.0-100.0); MEAN PLATELET VOLUME 10.8 fL (7.4-10.4); RBC 3.59 10x6/uL (4.00-5.40); RDW 14.3 % (11.5-14.5); WBC 10.8 10x3/uL (4.8-10.8)
[2019-02-23 06:14] LABS: ALBUMIN 1.9 g/dL (3.4-5.0); ALKALINE PHOSPHATASE 55 U/L (46-116); ALT (SGPT) 21 U/L (10-68); BILIRUBIN - TOTAL 0.73 mg/dL (0.2-1.3); CALC OSMOLALITY 267 mosm/kg (275-300); CALCIUM 8.5 mg/dL (8.5-10.1); CARBON DIOXIDE 29.9 mmol/L (21.0-32.0); CHLORIDE - SERUM 100 mmol/L (98-107); GLUCOSE 87 mg/dL (74-106); POTASSIUM - SERUM 4.3 mmol/L (3.5-5.1); PROTEIN - SERUM 5.5 g/dL (6.4-8.2); SODIUM 135 mmol/L (136-145); UREA NITROGEN 10 mg/dL (7-18)
[2019-02-23 06:15] LABS: CREATININE - SERUM 0.5 mg/dL (0.6-1.3); eGFR NON AFRICAN AMERICAN > 90 mL/min (90-120)
--- NOTE | 2019-02-23 07:00 | NUR ---
REPORT RECEVIED FROM THE OFF GOING RN. SEE ASSESSMENT IN THE PTS FLOW SHEET. PT LYING IN BED. DENIES PAIN AT THIS TIME. VSS. LEFT SUBSTERNAL DRESSING C/D/I. MIDLINE DRESSING C/D/I. GROIN DRESSING C/D/I. ACTIVE BOWEL SOUNDS. PT STATES THAT SHE IS PASSING GAS. BILATERAL DP AND PT PULSES DOPPLERABLE. EPIDURAL NOTED MIDBACK. DRESSING C/D/I. CALL LIGHT IN REACH. WILL CONT POC.
--- NOTE | 2019-02-23 09:48 | NUR ---
SURGERY NOTIFED ABOUT PULLING EPIDURAL.
--- NOTE | 2019-02-23 10:06 | NUR ---
DR MARROQUIN AT THE PTS BEDSIDE. SEE ORDERS.
--- NOTE | 2019-02-23 12:45 | NUR ---
DR DOUGLAS AT THE PTS BEDSIDE AND REMOVED EPIDURAL.
--- NOTE | 2019-02-23 13:31 | NUR ---
FULL CHD BATH GIVEN. PHYSCIAL THEARPY CALLED AND THEY ASSISTED THE PT OOB AND INTO HER BEDSIDE CHAIR. PT TOLERATED WELL. WILL CONT POC.
--- NOTE | 2019-02-23 13:34 | NUR ---
Nutrition follow up Pt was NPO this morning Diet advanced to full liquid for lunch Pt reports a good appetite and is tolerating diet well so far Offered Ensure and pt does not want this supplement Weight 140lb RD following
--- NOTE | 2019-02-23 13:34 | NUR ---
FC DC'D. NO ISSUES.
--- NOTE | 2019-02-23 14:00 | NUR ---
PT ASSISTED UP AND TO THE BATHROOM. PT VOIDED CLEAR, YELLOW URINE. PT STATS THAT SHE PASSED GAS. PT ASSISTED BACK INTO HER BEDSIDE CHAIR.
--- NOTE | 2019-02-23 15:23 | NUR ---
PT ASSISTED AGAIN TO THE BATHROOM WHERE SHE VOIDED AND PASSED MORE GAS. WILL CONT POC.
--- NOTE | 2019-02-23 18:11 | NUR ---
PT ASSISTED BACK INTO BED. PT TOLERATED WELL.
--- NOTE | 2019-02-23 19:11 | NUR ---
REPORT RECEIVED, SHIFT ASSESSMENT COMPLETED PER FLOW SHEET. AAOX4. PPP. LT SUBCLAVIN CVL, PATENT, INFUSING NS AT 30 ML/HR. ASSISSTED OOB TO BR, VOID X1, ASSISSTED BACK IN BED. DENIES OTHER NEEDS. SEE FLOW SHEET FOR COMPLETE ASSESSMENT. WILL CONTINUE TO MONITOR.
--- NOTE | 2019-02-23 21:00 | NUR ---
NO ACUTE DISTRESS NOTED. WILL CONTINUE TO MONITOR.
--- NOTE | 2019-02-23 23:18 | NUR ---
REASSESSMENT COMPLETED PER FLOW SHEET, SEE FOR DETAILS. NO ACUTE CHANGES NOTED. DENIES PAIN OR NEEDS. CALL LIGHT WITHIN REACH. WILL CONTINUE TO MONITOR.
[2019-02-24] VITALS (24 sets, daily range): BP systolic 102–136; BP diastolic 43–80
--- NOTE | 2019-02-24 00:07 | NUR ---
CALL LIGHT ANSWERED, C/O PAIN, PRN PERCOCET GIVEN, SEE EMAR FOR DETAILS. DENIES OTHER NEEDS. CALL LIGHT WITHIN REACH.
--- NOTE | 2019-02-24 02:00 | NUR ---
RESTING, NO ACUTE CHANGES NOTED, DENIES NEEDS. CALL LIGHT WITHIN REACH.
--- NOTE | 2019-02-24 03:47 | NUR ---
CALL LIGHT ANSWERED, C/O PAIN, PRN PERCOCET GIVEN, SEE EMAR FOR DETAILS. WILL CONTINUE TO MONITOR. CALL LIGHT WITHIN REACH.
--- NOTE | 2019-02-24 05:00 | NUR ---
WEIGHT OBTAINED, DENIES NEEDS AT THIS TIME. WILL CONTINUE TO MONITOR. CALL LIGHT WITHIN REACH.
[2019-02-24 06:38] LABS: HEMATOCRIT 32.7 % (36.0-48.0); HEMOGLOBIN 11.1 g/dL (12-16); MCH 30.8 pg (26.0-34.0); MCHC 33.9 g/dL (31.0-37.0); MCV 90.8 fL (80.0-100.0); MEAN PLATELET VOLUME 10.5 fL (7.4-10.4); RBC 3.6 10x6/uL (4.00-5.40); RDW 13.8 % (11.5-14.5)
[2019-02-24 06:48] LABS: CALCIUM 8.2 mg/dL (8.5-10.1); CARBON DIOXIDE 32.2 mmol/L (21.0-32.0); CHLORIDE - SERUM 99 mmol/L (98-107); CREATININE - SERUM 0.6 mg/dL (0.6-1.3); GLUCOSE 92 mg/dL (74-106); SODIUM 135 mmol/L (136-145); eGFR NON AFRICAN AMERICAN > 90 mL/min (90-120)
[2019-02-24 06:51] LABS: CALC OSMOLALITY 269 mosm/kg (275-300); POTASSIUM - SERUM 3.4 mmol/L (3.5-5.1); UREA NITROGEN 13 mg/dL (7-18)
--- NOTE | 2019-02-24 07:19 | NUR ---
REPORT RECEIVED FROM THE OFF GOING RN. SEE ASSESSMENT IN THE PTS FLOW SHEET. PT ASSISTED OOB AND INTO THE BATHROOM. PT VOIDED CLEAR, YELLOW URINE. PT THEN ASSISTED INTO THE BEDSIDE CHAIR. VSS AT THIS TIME. PULSES PALPABLE. PT DENIES PAIN. CALL LIGHT IN REACH. WILL CONT POC.
--- NOTE | 2019-02-24 09:04 | NUR ---
DR MARROQUIN IN THE UNIT. OK TO ADVANCE TO REGULAR DIET AND TO DC IV. AMBULATED THE PT.
--- NOTE | 2019-02-24 10:29 | NUR ---
PT AMBULATED WITH PHYSICAL THEARPY. SLOW BUT STEADY GAIT NOTED. AMBULATED UP AND DOWN THE [address] WAY. VSS. CALL LIGHT IN REACH. WILL CONT POC.
--- NOTE | 2019-02-24 10:38 | NUR ---
IV STARTED IN THE LEFT HAND. PATENT. PTS CVL DC'D WITH THE CATHETER TIP INTACT. DRESSING C/D/I.
--- NOTE | 2019-02-24 13:24 | NUR ---
PT UP SELF AMBULATING WITH A NORMAL AND STEADY GAIT. PT TOLERATED WELL.
--- NOTE | 2019-02-24 17:37 | NUR ---
ASSISTED THE PT BACK INTO BED. VSS. CALL LIGHT IN REACH. WILL CONT POC.
--- NOTE | 2019-02-24 20:00 | NUR ---
ASSESSMENT COMPLETED. VSS. DENIES NEEDS.
--- NOTE | 2019-02-24 22:00 | NUR ---
OOB TO RESTROOM INDEPENDENTLY. VOIDED.
[2019-02-25] VITALS (23 sets, daily range): BP systolic 107–146; BP diastolic 36–85
[2019-02-25 04:32] LABS: HEMATOCRIT 32.3 % (36.0-48.0); HEMOGLOBIN 11.1 g/dL (12-16); MCH 30.8 pg (26.0-34.0); MCHC 34.4 g/dL (31.0-37.0); MCV 89.7 fL (80.0-100.0); RBC 3.6 10x6/uL (4.00-5.40); RDW 13.4 % (11.5-14.5)
--- NOTE | 2019-02-25 04:45 | NUR ---
TO RADIOLOGY VIA WHEELCHAIR FOR PA & LAT.
[2019-02-25 04:49] LABS: CALC OSMOLALITY 273 mosm/kg (275-300); CALCIUM 8.4 mg/dL (8.5-10.1); CARBON DIOXIDE 31.1 mmol/L (21.0-32.0); CHLORIDE - SERUM 100 mmol/L (98-107); CREATININE - SERUM 0.5 mg/dL (0.6-1.3); GLUCOSE 94 mg/dL (74-106); POTASSIUM - SERUM 3.1 mmol/L (3.5-5.1); SODIUM 137 mmol/L (136-145); UREA NITROGEN 13 mg/dL (7-18); eGFR NON AFRICAN AMERICAN > 90 mL/min (90-120)
--- NOTE | 2019-02-25 07:00 | NUR ---
REC'D REPORT AND RESUMED CARE, UP IN CHAIR WITH NO SINS OF DISTRESS, VSS, DENIES PAIN AT THIS THAI, ASSESSMENT COMPLETED PER FLOWSHEET, CALL LIGHT IN REACH, ABD AND B/L GROIN DRESSINGS CDI, IS IN USE, 2250 MMHG PRESSURE MEASURED, PNEUMO VALVE IN PLACE WITH VALVE MOVEMENT WITH COUGHING, NO NEEDS AT THIS TIME
--- NOTE | 2019-02-25 08:56 | NUR ---
POTASSIUM 40 MEQ PO GIVEN PER ORDER, PILLS BROKEN IN HALF, HARD TO SWALLOW, ABLE TO GET 3 HALVES DOWN, AWAITING TO TAKE 4TH HALF, 904 VOMITING, CLEAR SECRETIONS, NO PILLS NOTED, ORAL CARE INITIATED 914 4TH PILL CRUSHED AND INTIATED WITH APPLESAUCE, ABLE TO TOLERATE
--- NOTE | 2019-02-25 09:21 | NUR ---
C/O PAIN 6/10 IN LOWER ABDOMIN, PERCOCET5/325 GIVEN PER PRN MAR ORDER
--- NOTE | 2019-02-25 09:27 | NUR ---
Nutrition follow up Diet advanced to regular and pt is eating 50% of meals on average Pt did not eat much breakfast today due to poor appetite however pt reports she usually eats well and tolerates diet well Offered Ensure and pt denied RD following
--- NOTE | 2019-02-25 10:00 | EC ---
PATIENT:TEMO CLEMENTE DATE OF SERVICE: 02/17/19 SEX: F MEDICAL RECORD: [id number] DATE OF : [birth year] LOCATION:[place] [address] AGE OF PATIENT: 48 ADMISSION DATE: 02/17/19 REFERRING PHYSICIAN: INTERPRETING PHYSICIAN: BIPIN TALLEY MD ECHOCARDIOGRAM REPORT ECHO CHARGES 4 ECHO COMPLETE Date: 02/23/19 CLINICAL DIAGNOSIS: MR ECHOCARDIOGRAPHIC MEASUREMENTS (adult normal given) AC root (d.<3.7cm) 3.0 cm LV Septum d (<1.2 cm> 1.2 cm Valve Excursion 1.0 cm LV Septum (systole) 1.5 cm Left Atria (s.<4.0cm> cm LVPW d(<1.2cm) 1.5 cm RV (d.<2.3cm) cm LVPW (sytole) 1.6 cm LV diastole(<5.6CM) 3.3 cm MV E-F(>70mm/sec) cm LV systole 3.0 cm LVOT Diameter 1.9 cm MV exc.(>10mm) cm Est.ejection fraction (50-75%) % DOPPLER: LVIT cm/sec A 80 cm/sec E 93 cm/sec LA cm/sec RVSP 17.1 mmHg LVOT 99 cm/sec AOP1/2T m/s Asc. Ao 146 cm/sec RVOT 75 cm/sec RA cm/sec PA 94 cm/sec AV Gradient Peak 8.5 mmHg AV Mean 5.5 mmHg AV Area 1.9 cm MV Gradient Peak 3.2 mmHg MV Mean 2.3 mmHg MV Area cm COMMENTS: Stogy Maker: Keith BECERRA Railway Signal Technician: Yolande Talley TAPE# PACS Pericardial Effusion N DATE OF SERVICE: 02/23/2019 FINDINGS: 1. Left ventricular chamber size is within normal limits. Left ventricular systolic function is normal. Overall ejection fraction is estimated at 55%. 2. Left atrium, right atrium, and right ventricular chamber sizes are within normal limit. 3. Valvular structures have normal structure and motion. 4. Doppler interrogation reveals no significant valvular insufficiency or stenosis. ECHOCARDIOGRAM REPORT [id number] TEMO CLEMENTE 5. No evidence of pericardial effusion or left ventricular thrombus. TRANSINT:[id number] Voice Confirmation ID: [id number] DOCUMENT ID: [id number] BIPIN TALLEY MD at 1000 CC: [id number] DICTATION DATE: 02/23/19 1619 TREATMENT TECHNICIAN: 02/23/192003 ADM IN [place] [id number] [place] [id number]
--- NOTE | 2019-02-25 10:00 | NUR ---
AMBULATED 500 FT AROUND UNIT WITH STANDBY ASSIST, TOLERATED WITHOUT DIFFICULTY
--- NOTE | 2019-02-25 11:50 | NUR ---
CONTINUE TO BE UP IN CHAIR, VSS, LUNCH TO BEDSIDE, INDEPENDENT WITH SET UP AND EATING
--- NOTE | 2019-02-25 12:09 | NUR ---
DR BARBA AT BEDSIDE FOR EVAL
--- NOTE | 2019-02-25 13:54 | MORECARE ---
CASE MANAGEMENT DISCHARGE SUMMARY PATIENT: TEMO CLEMENTE UNIT: [id number] ADM DATE: 02/17/19 AGE: 48 : [birth year] SEX: F [facility] AUTHOR: LAILA,DOC PHYSICIAN: REFERRING PHYSICIAN: KIAH MARROQUIN MD DATE OF SERVICE: 02/25/19 Discharge Plan Patient Name: TEMO CLEMENTE Facility: [facility]:[place] : 1970 Planned Disposition: Home Anticipated Discharge Date: Discharge Date: Expected LOS: Initial Reviewer: [email or web address] Initial Review Date: 02/19/2019 Generated: 02/25/19 2:54 pm Comments DCP- Discharge Planning Updated by [email or web address]: Pia Vazquez on 02/25/19 12:[address] Late Entry 02/24/19 @1830 CM assisted patient with [place] paperwork and faxed in to patient's employer. CM gave original papers back to patient to keep for her records. CM explained that there is one form that will have to be filled out by MD just prior to patient returning to work. D/C IMM explained and signed 02/24/19@ 1830. CM will continue to follow and assist as needed with discharge planning / needs. DCP- Discharge Planning Updated by [email or web address]: Pia Vazquez on 02/19/19 7:[address] Patient Name: TEMO CLEMENTE Admission Status: Urgent Accout number: [id number] Admission Date: 02-17-2019 : 1970 Admission Diagnosis:PERIPHERAL VASCULAR DISEASE, UNSPECIFIED Attending: KIAH MARROQUIN Current LOS: 2 Anticipated DC Date: Planned Disposition: Home Primary Insurance: [employer] CHOICE PPO MCR ADVANT Discharge Planning Comments: CM met with patient at bedside after explaining CM role and obtaining verbal consent. Patient lives at home with her daughter and plans to return there upon discharge. Patient feels this would be a safe discharge. CM discussed availability / needs of home health and medical equipment. Patient denies any discharge needs at this time. Patient states she will have her family drive her home upon discharge. CM will continue to follow and assist as needed with discharge planning / needs. Water Use Inspector: Pia Vazquez DCPIA - Discharge Planning Initial Assessment Updated by [email or web address]: Pia Vazquez on 02/19/19 8:03 pm * Is the patient Alert and Oriented? Yes * How many steps to enter\exit or inside your home? * PCP JAMESON * Pharmacy [facility] * Preadmission Environment Home with Family * ADLs Independent * List name and contact numbers for known caregivers / representatives who currently or will assist patient after discharge: AXEL CLEMENTE - [place] - [phone] * Verbal permission to speak to the caregivers and representatives has been obtained from the patient. Yes * Community resources currently utilized None * Additional services required to return to the preadmission environment? No * Can the patient safely return to the preadmission environment? Yes * Has this patient been hospitalized within the prior 30 days at any hospital? No Coverage Notice Reviewer: [email or web address] - Pia Vazquez Notice Issued Date-Time: 02/24/2019 18:30 Notice Type: IM Discharge Notice Notice Delivered To: Patient Relationship to Patient: Self Plywood Scarfer Tender Name: Delivery Method: HAND - Hand Delivered Shahana Days: Prior Verbal Notification: Recipient Understood Notice: Yes Recipient Signature: Yes Med Rec Note Co-signed by Attending: Coverage Notice Comment: Last DP export: 02/19/19 7:10 p Patient Name: TEMO CLEMENTE Page 29670 at 1354 All edits/amendments must be made on the electronic document DICTATION DATE: 02/25/19 1359 EDUCATION SPEC: RK 02/25/19 1354 RPT#: [id number] DC DATE: STATUS: ADM IN [facility] [address] [place] [address] END OF REPORT
--- NOTE | 2019-02-25 15:00 | NUR ---
REASSESSMENT COMPLETED, NO ACUTE CHANGE FROM PREVIOUS, VSS, UP IN CHAIR, CALL LIGHT IN REACH, NO NEEDS AT THIS TIME
--- NOTE | 2019-02-25 17:00 | NUR ---
DINNER TRAY TO BEDSIDE, INDEPENDENT WITH SET UP AND EATING
--- NOTE | 2019-02-25 18:15 | NUR ---
CALL TO BEDSIDE, WARM COMPRESS TO LEFT SIDE, NO OTHER NEEDS AT THIS TIME
--- NOTE | 2019-02-25 19:56 | NUR ---
PT RECEIVED WITH EYES OPEN IN BED WITH WATCHING TV. VSS. DENIES PAIN. NO OTHER NEEDS MADE KNOWN. ASSESSMENT COMPLETED, SEE FLOW SHEET. CALL LIGHT IN REACH. WILL CONTINUE TO OBSERVE.
--- NOTE | 2019-02-25 22:19 | NUR ---
PT RESTING WITH EYES CLOSED AND CHEST RISING. NO S/S OF DISTRESS. CALL LIGHT IN REACH. WILL CONTINUE TO OBSERVE.
--- NOTE | 2019-02-25 23:39 | NUR ---
PT WITH EYES CLOSED AND CHEST RISING. EASILY AWOKEN TO VERBAL STIMULI. REASSESSMENT COMPLETED, SEE FLOW SHEET. CALL LIGHT IN REACH. WILL CONTINUE TO OBSERVE
[2019-02-26] VITALS (21 sets, daily range): BP systolic 97–139; BP diastolic 43–80
--- NOTE | 2019-02-26 01:25 | NUR ---
PT WATCHING TV. VSS. NO NEEDS OR CONCERNS MADE KNOWN AT THIS TIME. CALL LIGHT IN REACH. WILL CONTINUE TO OBSERVE.
--- NOTE | 2019-02-26 03:45 | NUR ---
REASSESSMENT COMPLETED, SEE FLOW SHEET. CALL LIGHT IN REACH. WILL CONTINUE TO OBSERVE
--- NOTE | 2019-02-26 07:20 | NUR ---
SHIFT REPORT RECEIVED. PT SITTING UP IN CHAIR. A&OX4. DENIES PAIN AT THIS TIME. ON ROOM AIR. VSS. NO FEVER. MIDABDOMINAL INCISION WITH DRESSING IN PLACE. PNEUMOVAC ON LEFT UPPER CHEST. INTERMITENT AIR LEAK NOTED. SHIFT ASSESSMENT COMPLETED AND CHARTED IN FLOWSHEET. CALL LIGHT IN REACH. NO FURTHER NEEDS AT THIS TIME. WILL CONTINUE TO MONITOR.
--- NOTE | 2019-02-26 07:20 | NUR ---
SHIFT REPORT RECEIVED. AA&OX4. ON ROOM AIR. VSS. NO FEVER NOTED. DENIES ANY PAIN AT THIS TIME. COMPLAINING OF RESTLESS LEG. HAS MIDABDOMINAL INCISION WITH DRESSING C/D/I. PNEUMOVAC IN PLACE TO LEFT UPPER CHEST, NO IAR LEAK NOTED AT THIS TIME. HAS 22G PIV S.L. ON RIGHT HAND. SHIFT ASSESSMENT COMPLETED AND CHARTED IN FLOWSHEET. CALL LIGTH PLACED WITHIN REACH. NO FURTHER NEEDS AT THIS TIME. WILL CONTINUE TO MONITOR.
--- NOTE | 2019-02-26 08:01 | NUR ---
PT COMPLAINING OF RESTLESS LEG AT THIS TIME. REQUIP GIVEN PER ORDERS. WILL COTNINUE TO MONITOR.
--- NOTE | 2019-02-26 10:00 | NUR ---
NOT IN ROOM AT THIS TIME. WENT DOWN TO RADIOLOGY FOR PA AND LATERAL C-XRAY.
[2019-02-26 10:07] LABS: HEMATOCRIT 35.3 % (36.0-48.0); HEMOGLOBIN 12.2 g/dL (12-16); MCH 30.9 pg (26.0-34.0); MCHC 34.6 g/dL (31.0-37.0); MCV 89.4 fL (80.0-100.0); MEAN PLATELET VOLUME 9.8 fL (7.4-10.4); RBC 3.95 10x6/uL (4.00-5.40); RDW 13.5 % (11.5-14.5)
[2019-02-26 10:16] LABS: CALCIUM 8.8 mg/dL (8.5-10.1); CARBON DIOXIDE 31.4 mmol/L (21.0-32.0); CHLORIDE - SERUM 96 mmol/L (98-107); CREATININE - SERUM 0.6 mg/dL (0.6-1.3); GLUCOSE 122 mg/dL (74-106); SODIUM 136 mmol/L (136-145); eGFR NON AFRICAN AMERICAN > 90 mL/min (90-120)
[2019-02-26 10:18] LABS: CALC OSMOLALITY 274 mosm/kg (275-300); POTASSIUM - SERUM 3.6 mmol/L (3.5-5.1); UREA NITROGEN 17 mg/dL (7-18)
--- NOTE | 2019-02-26 10:35 | NUR ---
PT BACK IN ROOM. RESTING COMFORTABLY IN BED.
--- NOTE | 2019-02-26 11:41 | NUR ---
KEKE MURPHY NOTIFIED OF POTASSIUM BEING 3.6. ORDERED 20MEQ OF POTASSIUM (K LYTE).
--- NOTE | 2019-02-26 12:39 | NUR ---
PT RESTING IN CHAIR. REPORT PAIN 10/10 AT INCISION ON ABDOMEN. PERCOCET 10MG TAB GIVEN PER ORDERS. WARM BLANKET PROVIDED PER PT REQUEST. NO FURTHER NEEDS AT THIS TIME. WILL CONTINUE TO MONITOR.
--- NOTE | 2019-02-26 19:00 | NUR ---
SHIFT ASSESSMENT COMPLETE. VS STABLE. NO VISUAL CUES OF DISTRESS NOTED. WILL CONTINUE TO MONITOR.
[2019-02-27] VITALS (21 sets, daily range): BP systolic 93–125; BP diastolic 45–72
--- NOTE | 2019-02-27 05:00 | NUR ---
AWAKE AND ALERT. VSS
[2019-02-27 05:48] LABS: HEMATOCRIT 33.8 % (36.0-48.0); HEMOGLOBIN 11.7 g/dL (12-16); MCH 30.8 pg (26.0-34.0); MCHC 34.6 g/dL (31.0-37.0); MCV 88.9 fL (80.0-100.0); MEAN PLATELET VOLUME 9.9 fL (7.4-10.4); RBC 3.8 10x6/uL (4.00-5.40); RDW 13.6 % (11.5-14.5); WBC 7.4 10x3/uL (4.8-10.8)
[2019-02-27 06:23] LABS: ALBUMIN 2.3 g/dL (3.4-5.0); ALKALINE PHOSPHATASE 84 U/L (46-116); ALT (SGPT) 24 U/L (10-68); BILIRUBIN - TOTAL 0.33 mg/dL (0.2-1.3); CALC OSMOLALITY 271 mosm/kg (275-300); CALCIUM 8.7 mg/dL (8.5-10.1); CARBON DIOXIDE 28.5 mmol/L (21.0-32.0); CHLORIDE - SERUM 100 mmol/L (98-107); CREATININE - SERUM 0.6 mg/dL (0.6-1.3); GLUCOSE 102 mg/dL (74-106); POTASSIUM - SERUM 3.8 mmol/L (3.5-5.1); PROTEIN - SERUM 6.2 g/dL (6.4-8.2); SODIUM 136 mmol/L (136-145); eGFR NON AFRICAN AMERICAN > 90 mL/min (90-120)
[2019-02-27 06:27] LABS: UREA NITROGEN 12 mg/dL (7-18)
--- NOTE | 2019-02-27 07:30 | NUR ---
SHIFT REPORT RECEIVED. PT UP IN CHAIR. AA&O X 4. DENIES PAIN AT THIS TIME. ON ROOM AIR. VSS. NO FEVER NOTED. PNEUMO VENT REMAINS IN PLACE ON CHASITY CHEST. INTERMITENT AIR LEAK NOTED. MIDABDOMINAL INCISION WITH DRESSING C/D/I. JOSE GROIN DRESSING IN PLACE. NO IV ACCESS NOTED. COMPLETE SHIFT ASSESSMENT CHARTED IN FLOWSHEET. NO FURTHER NEEDS AT THIS TIME. WILL CONTINUE TO MONITOR.
--- NOTE | 2019-02-27 09:33 | NUR ---
NUTRITION F/U CHART REVIEWED, PT VISIT. PT REPORTS TOLERATING REG DIET WITH GOOD INTAKE RECENT MEALS. WILL CONTINUE TO PROVIDE DIET, MONITOR PO INTAKE. RD FOLLOWING
--- NOTE | 2019-02-27 09:42 | NUR ---
RATES PAIN 6/10 AT INCISION SITE ON ABDOMEN. PERCOCET 5MG TAB GIVEN AT THIS TIME.
--- NOTE | 2019-02-27 11:00 | NUR ---
RE-ASSESSMENT COMPLETED. NO ACUTE CHANGES FROM PREVIOUS ASSESSMENT. WILL CONTINUE TO MONITOR.
--- NOTE | 2019-02-27 13:00 | NUR ---
PT RESTING COMFORTABLY. AMBULATES INDEPENDENTLY. DENIES FURTHER NEEDS AT THIS TIME. WILL CONTINUE TO MONITOR.
--- NOTE | 2019-02-27 16:41 | NUR ---
BATH OFFERED AT THIS TIME. PT REFUSED. STATED THAT SHE DOES NOT LIKE HOW BED BATHS MAKE HER FEEL. CLEAN GOWN PROVIDED. NO FURTHER NEEDS. WILL CONTINUE TO MONITOR.
--- NOTE | 2019-02-27 19:00 | NUR ---
RE-ASSESSMENT COMPLETE. VS STABLE. NO VISUAL CUES OF DISTRESS NOTED. DENIES ANY OTHER NEEDS. WILL CONTINUE TO MONITOR.
--- NOTE | 2019-02-27 21:00 | NUR ---
VS STABLE. NO VISUAL CUES OF DISTRESS NOTED. DENIES ANY OTHER NEEDS. WIIL CONTINUE TO MONITOR.
[2019-02-28] VITALS (7 sets, daily range): BP systolic 91–108; BP diastolic 51–68
[2019-02-28 06:17] LABS: HEMATOCRIT 34.3 % (36.0-48.0); HEMOGLOBIN 11.6 g/dL (12-16); MCH 30.1 pg (26.0-34.0); MCHC 33.8 g/dL (31.0-37.0); MCV 89.1 fL (80.0-100.0); MEAN PLATELET VOLUME 9.8 fL (7.4-10.4); RBC 3.85 10x6/uL (4.00-5.40); RDW 13.6 % (11.5-14.5); WBC 7.4 10x3/uL (4.8-10.8)
[2019-02-28 06:52] LABS: ALBUMIN 2.3 g/dL (3.4-5.0); ALKALINE PHOSPHATASE 81 U/L (46-116); ALT (SGPT) 27 U/L (10-68); BILIRUBIN - TOTAL 0.25 mg/dL (0.2-1.3); CALC OSMOLALITY 271 mosm/kg (275-300); CALCIUM 8.7 mg/dL (8.5-10.1); CARBON DIOXIDE 29.1 mmol/L (21.0-32.0); CHLORIDE - SERUM 101 mmol/L (98-107); CREATININE - SERUM 0.6 mg/dL (0.6-1.3); GLUCOSE 98 mg/dL (74-106); POTASSIUM - SERUM 3.9 mmol/L (3.5-5.1); PROTEIN - SERUM 6.1 g/dL (6.4-8.2); SODIUM 136 mmol/L (136-145); UREA NITROGEN 12 mg/dL (7-18); eGFR NON AFRICAN AMERICAN > 90 mL/min (90-120)
--- NOTE | 2019-02-28 07:00 | NUR ---
REC'D UP IN CHAIR. DENIES ANY NEED.
--- NOTE | 2019-02-28 07:30 | NUR ---
ASSESSED. VSS. DENIES NEED FOR PAIN MED.
--- NOTE | 2019-02-28 09:00 | NUR ---
HAS BEEN WALKING IN [place] W/O DIFFICULTY.
--- NOTE | 2019-02-28 10:10 | NUR ---
OXYCODONE FOR C/O INCISIONAL PAIN.
[2019-02-28] MEDS ORDERED: PERCOCET 10-321 EAC1 PO (12:58)
--- NOTE | 2019-02-28 13:00 | NUR ---
DR MARROQUIN ROUNDS- REMOVES LEFT ANTERIOR CHEST PNEUMOVENT. ORDERS REC'D TO DC HOME.
--- NOTE | 2019-02-28 14:15 | NUR ---
OXYCODONR FOR C/O INCISIONAL PAIN.
--- NOTE | 2019-02-28 14:26 | NUR ---
DC HOME VIA W/C W/SON IN STABLE CODITION.
--- NOTE | 2019-03-02 09:37 | MORECARE ---
CASE MANAGEMENT DISCHARGE SUMMARY PATIENT: TEMO CLEMENTE UNIT: [id number] ADM DATE: 02/17/19 AGE: 48 : 70 SEX: F [facility] AUTHOR: LAILA,DOC PHYSICIAN: REFERRING PHYSICIAN: KIAH MARROQUIN MD DATE OF SERVICE: 03/02/19 Discharge Plan Patient Name: TEMO CLEMENTE Facility: [facility]:[place] : 1970 Planned Disposition: Home Anticipated Discharge Date: Discharge Date: 02/28/2019 Expected LOS: Initial Reviewer: [email or web address] Initial Review Date: 02/19/2019 Generated: 03/02/19 10:37 am DCP- Discharge Planning Updated by [email or web address]: Pia Vazquez on 02/25/19 12:[address] Late Entry 02/24/19 @1830 CM assisted patient with [place] paperwork and faxed in to patient's employer. CM gave original papers back to patient to keep for her records. CM explained that there is one form that will have to be filled out by MD just prior to patient returning to work. D/C IMM explained and signed 02/24/19@ 1830. CM will continue to follow and assist as needed with discharge planning / needs. DCP- Discharge Planning Updated by [email or web address]: Pia Vazquez on 02/19/19 7:[address] Patient Name: TEMO CLEMENTE Admission Status: Urgent Accout number: [id number] Admission Date: 02-17-2019 : 1970 Admission Diagnosis:PERIPHERAL VASCULAR DISEASE, UNSPECIFIED Attending: KIAH MARROQUIN Current LOS: 2 Anticipated DC Date: Planned Disposition: Home Primary Insurance: [employer] PPO MCR [employer] Discharge Planning Comments: CM met with patient at bedside after explaining CM role and obtaining verbal consent. Patient lives at home with her daughter and plans to return there upon discharge. Patient feels this would be a safe discharge. CM discussed availability / needs of home health and medical equipment. Patient denies any discharge needs at this time. Patient states she will have her family drive her home upon discharge. CM will continue to follow and assist as needed with discharge planning / needs. Facetor: Pia Vazquez DCPIA - Discharge Planning Initial Assessment Updated by [email or web address]: Pia Vazquez on 02/19/19 8:03 pm * Is the patient Alert and Oriented? Yes * How many steps to enter\exit or inside your home? * PCP JAMESON * Pharmacy [facility] [place] * Preadmission Environment Home with Family * ADLs Independent * List name and contact numbers for known caregivers / representatives who currently or will assist patient after discharge: AXEL CLEMENTE - SON - [phone] * Verbal permission to speak to the caregivers and representatives has been obtained from the patient. Yes * Community resources currently utilized None * Additional services required to return to the preadmission environment? No * Can the patient safely return to the preadmission environment? Yes * Has this patient been hospitalized within the prior 30 days at any hospital? No Coverage Notice Reviewer: [email or web address] - Pia Vazquez Notice Issued Date-Time: 02/24/2019 18:30 Notice Type: IM Discharge Notice Notice Delivered To: Patient Relationship to Patient: Self Machinist Apprentice Name: Delivery Method: HAND - Hand Delivered Shahana Days: Prior Verbal Notification: Recipient Understood Notice: Yes Recipient Signature: Yes Med Rec Note Co-signed by Attending: Coverage Notice Comment: Last DP export: 02/25/19 12:54 p Patient Name: TEMO CLEMENTE Page [id number] at 0937 All edits/amendments must be made on the electronic document DICTATION DATE: 03/02/19935 SPRAY GUN STRIPER: RK 03/02/19935 RPT#: [id number] DC DATE:02/28/19 STATUS: DIS IN [facility] [address] [place] [address] END OF REPORT
--- NOTE | 2019-03-04 13:11 | OP ---
PATIENT NAME: TEMO CLEMENTE MEDICAL RECORD: [id number] :70 LOCATION:[place] .CV03 ADMISSION DATE:02/17/19 SURGEON: KIAH ADAMS MD DATE OF OPERATION: 02/20/2019 SURGEON: Kiah Adams MD ANESTHESIA: 1% local lidocaine. OPERATION PERFORMED: Placement of a thoracic vent. PREOPERATIVE DIAGNOSIS: Tension pneumothorax. POSTOPERATIVE DIAGNOSIS: Tension pneumothorax. INDICATION FOR OPERATION: Tension pneumothorax. Postoperatively, left hemithorax. FINDINGS OF THE OPERATION: Pneumothorax. ESTIMATED BLOOD LOSS: Negligible. DESCRIPTION OF PROCEDURE: After informed consent, adequate preoperative medication, and evaluation, the left anterior chest was prepped with ChloraPrep. A thoracic vent was inserted through the third interspace with good function. The device was secured. Chest x-ray demonstrated resolution of the tension portion of the pneumothorax and most of the pneumothorax itself. The patient tolerated the procedure well. TRANSINT:[id number] Voice Confirmation ID: [id number] DOCUMENT ID: [id number] KIAH ADAMS MD at 1311 CC: [id number] DICTATION DATE: 02/20/19 1624 WAFER POLISHING LEAD WORKER: 02/20/19 2258 DIS IN 02/28/19 [place] [place] [address]
--- NOTE | 2019-03-04 13:11 | OP ---
PATIENT NAME: TEMO CLEMENTE MEDICAL RECORD: [id number] :70 LOCATION:[facility] D.CV03 ADMISSION DATE:02/17/19 SURGEON: SILVERIO MARROQUIN MD DATE OF OPERATION: 02/20/2019 SURGEON: Silverio Marroquin MD CARBONATION EQUIPMENT OPERATOR: Juan Rojo MD ANESTHESIA: General endotracheal, Dr. Campbell and Dr. Johnson. OPERATION PERFORMED: Aortobifemoral graft utilizing a 12 x 6 Hemashield gold graft. PREOPERATIVE DIAGNOSIS: Severe aortoiliac stenotic disease. POSTOPERATIVE DIAGNOSIS: Severe aortoiliac stenotic disease. INDICATION FOR OPERATION: Severe peripheral arterial disease with claudication. FINDINGS AT OPERATION: The aorta was 12 mm in diameter. She had severe iliac disease bilaterally. She had adhesions in both groin from previous procedures. ESTIMATED BLOOD LOSS: 250 mL. DESCRIPTION OF PROCEDURE: After informed consent, adequate preoperative medication evaluation, the patient was brought to the operating room, placed on the table in the supine position. After induction of general endotracheal anesthesia and application of appropriate monitoring devices, the chest, abdomen, and legs were prepped and draped in sterile field, utilizing Betadine scrub, alcohol, and Betadine solution. Betadine-impregnated drape was also used. Dr. Rojo participated throughout the procedure with anastomosis of the left groin as well as assisting with the proximal anastomosis. Groin incisions were made bilaterally over the femoral arteries and dissection carried down the fascia. Hemostasis maintained with electrocautery. The arteries were encased in adhesions due to previous exploration of both groins and placement of an endovascular stent. She underwent dissection of the right and left common femoral and distal iliac arteries and dissection into the retroperitoneum. The hemostasis was assured. Attention was then turned toward the midline. A median celiotomy incision was made and dissection carried down the fascia. The linea alba was divided. The abdomen was opened. The abdomen was explored. We were unable to place an NG tube intraoperatively due to an anesthesia inability to place a tube into the esophagus. The tube would not pass the nares and nasopharynx. A Bookwalter retractor was placed in the wound and the colon retracted superiorly. The duodenum was mobilized and retracted laterally. The retroperitoneum was then opened and dissection carried down to the aorta. The renal arteries were identified bilaterally and an umbilical tape placed around the aorta. One set of lumbars were divided individually mobilizing the aorta. The previous stent was palpated and marked. The dissection was then carried down to the bifurcation and into each common iliac artery. The aorta measured to a 12 graft and the patient was given a calculated dose of heparin after 3 OPERATIVE REPORT [id number] TEMO CLEMENTE. Clamp was applied just below the renal arteries and the aorta transected. Dissection was carried down to the stent graft which could not be removed. Therefore, it was trimmed distally and the aorta oversewn with 2-0 Prolene pledgeted sutures. Hemostasis was assured. The graft was then trimmed and the aortic anastomosis was made in the end utilizing a running 3-0 Prolene suture. The anastomosis was tested and was secured. The limbs were then brought into the groins bilaterally and Dr. Rojo did the anastomosis on the left and I assisted him and I did the anastomosis on the right and he assisted me. The clamps were removed sequentially removing all air. There was excellent flow by Doppler bilaterally. The patient was then given a calculated dose of protamine to reverse the heparin. Hemostasis was assured. Wound was irrigated with copious amounts of antibiotic solution and normal saline. The groin incisions were closed with 2-0 Vicryl on deep subcutaneous tissue, 3-0 Vicryl on superficial subcutaneous tissue, 5-0 subcuticular Monocryl on the skin bilaterally. Attention was then turned toward the abdomen. The retroperitoneal was examined and irrigated with copious amounts of antibiotic solution and normal saline. There was no bleeding. The retroperitoneum was reperitonealized excluding the duodenum. The bowel was then run. There were no injuries. The bowel was placed back in its anatomic position and the colon and omentum placed anteriorly. Abdomen was again and irrigated. Instrument count and sponge count were correct times 2. The abdomen was closed in layers utilizing 0 Ethibond on linea alba, 2-0 Vicryl on deep subcutaneous tissue, and 3-0 subcuticular Vicryl on the skin. Sterile dressings were applied. The patient tolerated the procedure well and was transferred to the CV ICU in satisfactory condition. TRANSINT:[id number] Voice Confirmation ID: [id number] DOCUMENT ID: [id number] SILVERIO MARROQUIN MD at 1311 CC: [id number] DICTATION DATE: 02/20/19 1436 SKATE MAKER: 02/20/19 193 DIS IN 02/28/19 [facility] [address] [facility]
== END 2019-02-28 14:23 | disposition home or self-care (01) | DRG 271 ==
LOC: D.CVICU 10:13
PROVIDERS: Internal Medicine Nephrology; Thoracic Surgery (Cardiothoracic Vascular Surgery); ADMIT Internal Medicine Cardiovascular Disease; ATTEND Internal Medicine Cardiovascular Disease
PROC: 05HY33Z Insertion of Infusion Device into Upper Vein, Percutaneous Approach (ICD-10-PCS; principal; 2019-02-18)
PROC: 0WHB3YZ Insertion of Other Device into Left Pleural Cavity, Percutaneous Approach (ICD-10-PCS; 2019-02-20)
PROC: 04100JK Bypass Abdominal Aorta to Bilateral Femoral Arteries with Synthetic Substitute, Open Approach (ICD-10-PCS; 2019-02-20 07:30)
DX: I70.218 Atherosclerosis of native arteries of extremities with intermittent claudication, other extremity (principal); I50.22 Chronic systolic (congestive) heart failure; J95.812 Postprocedural air leak; J95.811 Postprocedural pneumothorax; J44.9 Chronic obstructive pulmonary disease, unspecified; G47.00 Insomnia, unspecified; G25.81 Restless legs syndrome; I07.1 Rheumatic tricuspid insufficiency; Z85.118 Personal history of other malignant neoplasm of bronchus and lung; K59.00 Constipation, unspecified; E87.6 Hypokalemia; I70.0 Atherosclerosis of aorta

== ENCOUNTER 2019-03-07 09:13 | Emergency (ER) | payer MEDICARE, MEDICAID ==
[~2019-03-07] VITALS: Ht 172.7 cm; Wt 55.2 kg
[~2019-03-07 09:13] MED LIST changes: +PERCOCET 10-321 EAC1 PO
[2019-03-07 09:15] VITALS: Ht 172.7 cm; Wt 55.2 kg
[2019-03-07 09:32] LABS: APPEARANCE CLEAR (CLEAR); BILIRUBIN NEGATIVE (NEGATIVE); COLOR YELLOW (YELLOW); GLUCOSE NEGATIVE (NEGATIVE); KETONE NEGATIVE (NEGATIVE); NITRITE NEGATIVE (NEGATIVE); PROTEIN NEGATIVE (NEGATIVE); SPECIFIC GRAVITY 1.025 (1.005-1.020); UROBILINOGEN NORMAL (NORMAL)
[2019-03-07 09:39] LABS: BASOPHILS 0.6 % (0-2); EOSINOPHILS 0.8 % (0-7); HEMATOCRIT 44.8 % (36.0-48.0); HEMOGLOBIN 15.3 g/dL (12-16); IMMATURE GRANULOCYTES 0.1 % (0-5); LYMPHOCYTES 21.7 % (15-50); MCH 30.9 pg (26.0-34.0); MCHC 34.2 g/dL (31.0-37.0); MCV 90.5 fL (80.0-100.0); MEAN PLATELET VOLUME 10.1 fL (7.4-10.4); MONOCYTES 5.5 % (2-11); NEUTROPHILS 71.3 % (40-80); RBC 4.95 10x6/uL (4.00-5.40); WBC 8.5 10x3/uL (4.8-10.8)
[2019-03-07 09:45] LABS: PLATELET COUNT 496 10x3/uL (130-400)
[2019-03-07 10:07] LABS: ALBUMIN 3.5 g/dL (3.4-5.0); ALKALINE PHOSPHATASE 86 U/L (46-116); ALT (SGPT) 25 U/L (10-68); BILIRUBIN - TOTAL 0.58 mg/dL (0.2-1.3); CALCIUM 9.3 mg/dL (8.5-10.1); CARBON DIOXIDE 28.1 mmol/L (21.0-32.0); CHLORIDE - SERUM 99 mmol/L (98-107); CREATININE - SERUM 0.6 mg/dL (0.6-1.3); POTASSIUM - SERUM 5.8 mmol/L (3.5-5.1); PROTEIN - SERUM 7.8 g/dL (6.4-8.2); SODIUM 136 mmol/L (136-145); UREA NITROGEN 16 mg/dL (7-18); eGFR NON AFRICAN AMERICAN > 90 mL/min (90-120)
[2019-03-07 10:08] LABS: AMYLASE - SERUM 88 U/L (25-115); LIPASE 397 U/L (73-393)
[2019-03-07 10:10] LABS: CALC OSMOLALITY 275 mosm/kg (275-300); GLUCOSE 146 mg/dL (74-106); TROPONIN-I < 0.017 ng/mL (0.000-0.060)
[2019-03-07] MEDS ORDERED: OXYCONTIN10 MG PO (10:13)
[2019-03-07 11:00] VITALS: BP 126/80
== END 2019-03-07 11:01 | disposition home or self-care (01) ==
LOC: D.ER 09:13
PROVIDERS: Emergency Medicine
DX: R10.30 Lower abdominal pain, unspecified (principal)

== ENCOUNTER 2019-03-12 17:22 | Emergency (ER) | payer MEDICARE, MEDICAID ==
[~2019-03-12] VITALS: Ht 172.7 cm; Wt 54.5 kg
[~2019-03-12 17:22] MED LIST changes: +OXYCONTIN10 MG PO
[2019-03-12 17:34] VITALS: Ht 172.7 cm; Wt 54.5 kg
[2019-03-12 18:11] LABS: BASOPHILS 0.5 % (0-2); EOSINOPHILS 0.6 % (0-7); HEMATOCRIT 43.2 % (36.0-48.0); HEMOGLOBIN 14.6 g/dL (12-16); IMMATURE GRANULOCYTES 0.2 % (0-5); LYMPHOCYTES 31.7 % (15-50); MCH 30.4 pg (26.0-34.0); MCHC 33.8 g/dL (31.0-37.0); MCV 89.8 fL (80.0-100.0); MEAN PLATELET VOLUME 10.2 fL (7.4-10.4); MONOCYTES 7.1 % (2-11); NEUTROPHILS 59.9 % (40-80); RBC 4.81 10x6/uL (4.00-5.40); RDW 13.6 % (11.5-14.5)
[2019-03-12 18:12] LABS: PLATELET COUNT 314 10x3/uL (130-400)
[2019-03-12 18:17] LABS: APPEARANCE TURBID (CLEAR); BILIRUBIN NEGATIVE (NEGATIVE); COLOR YELLOW (YELLOW); GLUCOSE NEGATIVE (NEGATIVE); KETONE NEGATIVE (NEGATIVE); NITRITE POSITIVE (NEGATIVE); PROTEIN 1+ mg/dL (NEGATIVE); SPECIFIC GRAVITY 1.025 (1.005-1.020); UROBILINOGEN NORMAL (NORMAL)
[2019-03-12 18:18] LABS: AMORPHOUS SEDIMENT >1+ /lpf (NONE SEEN); BACTERIA MANY /hpf (NONE SEEN); EPITHELIAL CELLS 0-5 /hpf (0-5); RED CELLS - URINE 0-5 /hpf (0-5); WHITE CELLS - URINE 0-5 /hpf (0-5)
[2019-03-12 18:24] LABS: ALBUMIN 3.5 g/dL (3.4-5.0); ALKALINE PHOSPHATASE 67 U/L (46-116); ALT (SGPT) 15 U/L (10-68); BILIRUBIN - TOTAL 0.35 mg/dL (0.2-1.3); CALC OSMOLALITY 274 mosm/kg (275-300); CARBON DIOXIDE 29.3 mmol/L (21.0-32.0); CHLORIDE - SERUM 100 mmol/L (98-107); GLUCOSE 137 mg/dL (74-106); POTASSIUM - SERUM 3.3 mmol/L (3.5-5.1); PROTEIN - SERUM 7.9 g/dL (6.4-8.2); SODIUM 137 mmol/L (136-145); UREA NITROGEN 10 mg/dL (7-18); eGFR NON AFRICAN AMERICAN 63 mL/min (90-120)
[2019-03-12 18:29] LABS: AMYLASE - SERUM 76 U/L (25-115); LIPASE 338 U/L (73-393)
[2019-03-12 18:30] LABS: TROPONIN-I < 0.017 ng/mL (0.000-0.060)
[2019-03-12] MEDS ORDERED: HYDROCODON-ACE1 EA10 PO (20:56)
[2019-03-12] MEDS ORDERED: MACROBID100 MG PO (20:56)
[2019-03-13 00:56] VITALS: BP 106/49
== END 2019-03-12 23:30 | disposition home or self-care (01) ==
LOC: D.ER 17:22
PROVIDERS: Family Medicine
DX: N39.0 Urinary tract infection, site not specified (principal); R10.13 Epigastric pain; E87.6 Hypokalemia

== ENCOUNTER 2019-03-27 15:53 | Inpatient (IN) | payer MEDICARE, MEDICAID ==
[~2019-03-27] VITALS: Ht 172.7 cm; Wt 53.6 kg
--- NOTE | ~2019-03-27 | CN ---
PATIENT NAME:TEMO CLEMENTE MEDICAL RECORD: [id number] : 70 LOCATION:D.M2 D.2112 ADMIT DATE: 03/27/19 ACCOUNT: [id number] CONSULTING PHYSICIAN: JOSE MIGUEL OROZCO MD REFERRING PHYSICIAN: JULIETH AVALOS MD DATE OF CONSULTATION: 03/28/2019 CONSULT REQUESTING PHYSICIAN: Julieth Avalos MD REASON FOR CONSULTATION: Acute exacerbation of COPD, pleuritic type of chest pain. HISTORY OF PRESENT ILLNESS: Ms. Clemente underwent abdominal aortic aneurysm repair in January this year. She was doing well, but this last Saturday she developed a pleuritic type of chest pain, worse with coughing. She also has worsening shortness of breath. The patient came in to the ER. Her D-dimer was positive, but the VQ scan is low probability. She denies any fever and chill, no night sweats. REVIEW OF SYSTEMS: As in history of present illness. PAST MEDICAL HISTORY: 1. History of CA of the lung, status post right upper lobe lobectomy. 2. COPD. 3. History of smoking, nicotine dependence. 4. Peripheral vascular disease. PAST SURGICAL HISTORY: 1. She had partial hysterectomy. 2. Abdominal aortic aneurysm. 3. Right upper lobe lobectomy for CA of the lung. ALLERGIES: SHE IS ALLERGIC TO IV CONTRAST DYE. MEDICATIONS: [employer] is reviewed. PERSONAL AND SOCIAL HISTORY: The patient was a smoker until October of this year. She is a nondrinker. FAMILY HISTORY: Noncontributory. PHYSICAL EXAMINATION: GENERAL: Now, the patient is lying comfortably in bed. She is not in acute distress. VITAL SIGNS: The blood pressure is 122/75, pulse is 75, respirations 20, temperature 98.2, SpO2 is 97% on room air. HEENT: Conjunctivae are pink. Sclerae are not icteric. NECK: Supple, no JVD. CHEST: The chest excursion is minimal on both sides. There is wheeze on forceful expiration. HEART: Rhythm regular, normal sound, no murmur. ABDOMEN: Soft, bowel sounds present. No hepatosplenomegaly. RECTAL: Deferred. EXTREMITIES: No cyanosis, no clubbing, no pedal edema. CENTRAL NERVOUS SYSTEM: The patient is awake and alert. There are no obvious CONSULT REPORT [id number] TEMO CLEMENTE cranial nerve abnormality. The gait was not tested. CHEST RADIOGRAPH: There are surgical changes, no infiltrate. VQ scan is low probability. OTHER LABORATORY DATA: CBC: WBC 5.6, hemoglobin 14.1, hematocrit 42, platelet count 187. D-dimer was 2.40. IMPRESSION: 1. Acute exacerbation of chronic obstructive pulmonary disease. 2. Tracheobronchitis. 3. Pleurisy. 4. History of cancer of the lung. 5. Status post abdominal aortic aneurysm repair in January 2019. 6. Restless leg syndrome. RECOMMENDATION: 1. Supplemental oxygen. 2. Toradol for pain control. 3. DVT prophylaxis. 4. Continue with empiric antibiotic. 5. Albuterol ipratropium nebulizer, Brovana and budesonide nebulizer. 6. Adjust the dose of IV steroid. 7. Check the CT scan of the chest. Dr. Avalos, thank you for involving me in the care of Ms. Clemente. TRANSINT:[id number] Voice Confirmation ID: [id number] DOCUMENT ID: [id number] JOSE MIGUEL OROZCO MD CC: [id number] DICTATION DATE: 03/28/19 1542 TEST ENGINE OPERATOR: 03/29/19 0208 ADM IN [facility] [address] [place] [address]
[~2019-03-27 15:53] MED LIST changes: +HYDROCODON-ACE1 EA10 PO; +MACROBID100 MG PO
[2019-03-27 16:39] LABS: BASOPHILS 0.5 % (0-2); EOSINOPHILS 1.5 % (0-7); IMMATURE GRANULOCYTES 0.1 % (0-5); LYMPHOCYTES 25.8 % (15-50); MCH 30.2 pg (26.0-34.0); MCV 88.7 fL (80.0-100.0); MEAN PLATELET VOLUME 10.6 fL (7.4-10.4); MONOCYTES 8.5 % (2-11); NEUTROPHILS 63.6 % (40-80); RDW 13.9 % (11.5-14.5); WBC 8.7 10x3/uL (4.8-10.8)
[2019-03-27 16:41] LABS: PLATELET COUNT 183 10x3/uL (130-400)
[2019-03-27 16:48] LABS: APTT 29.2 SECONDS (22.8-39.4); INR 1.14 (0.85-1.17); PROTIME 14.1 SECONDS (11.6-15.0)
[2019-03-27 16:55] LABS: ALBUMIN 3.8 g/dL (3.4-5.0); ALKALINE PHOSPHATASE 53 U/L (46-116); ALT (SGPT) 8 U/L (10-68); BILIRUBIN - TOTAL 0.45 mg/dL (0.2-1.3); CALC OSMOLALITY 275 mosm/kg (275-300); CALCIUM 9.4 mg/dL (8.5-10.1); CARBON DIOXIDE 26.7 mmol/L (21.0-32.0); CHLORIDE - SERUM 100 mmol/L (98-107); GLUCOSE 114 mg/dL (74-106); POTASSIUM - SERUM 3.8 mmol/L (3.5-5.1); PROTEIN - SERUM 7.6 g/dL (6.4-8.2); SODIUM 137 mmol/L (136-145); UREA NITROGEN 15 mg/dL (7-18); eGFR NON AFRICAN AMERICAN 63 mL/min (90-120)
[2019-03-27 17:06] LABS: CKMB 0.4 U/L (0.0-3.6); CREATINE KINASE 40 UL (21-215); MAGNESIUM - SERUM 1.8 mg/dL (1.8-2.4)
[2019-03-27 17:13] LABS: TROPONIN-I < 0.017 ng/mL (0.000-0.060)
[2019-03-27 23:00] VITALS: BP 96/65; Ht 172.7 cm; Wt 53.6 kg
[2019-03-28 05:35] LABS: BASOPHILS 0.2 % (0-2); EOSINOPHILS 0 % (0-7); HEMOGLOBIN 14.1 g/dL (12-16); IMMATURE GRANULOCYTES 0.2 % (0-5); LYMPHOCYTES 12.5 % (15-50); MCH 29.7 pg (26.0-34.0); MCHC 33.6 g/dL (31.0-37.0); MCV 88.6 fL (80.0-100.0); MEAN PLATELET VOLUME 10.6 fL (7.4-10.4); MONOCYTES 0.2 % (2-11); NEUTROPHILS 86.9 % (40-80); PLATELET COUNT 187 10x3/uL (130-400); RBC 4.74 10x6/uL (4.00-5.40); RDW 13.8 % (11.5-14.5)
[2019-03-28 05:39] LABS: WBC 5.6 10x3/uL (4.8-10.8)
[2019-03-28 06:00] LABS: ANION GAP 13.2 mmol/L (8-16); BILIRUBIN - TOTAL 0.24 mg/dL (0.2-1.3); CALCIUM 8.6 mg/dL (8.5-10.1); CARBON DIOXIDE 26.5 mmol/L (21.0-32.0); CREATININE - SERUM 0.9 mg/dL (0.6-1.3); PROTEIN - SERUM 6.7 g/dL (6.4-8.2)
[2019-03-28 06:04] LABS: POTASSIUM - SERUM 4.7 mmol/L (3.5-5.1)
--- NOTE | 2019-03-28 07:30 | NUR ---
PT AWAKE AND ORIENTED. C/O HEADACHE, PT REQUESTS MEDICATION. WILL PROVIDE IF AVALIABLE. NO OTHER COMPLAINTS/CONCERNS/QUESTIONS AT THIS TIME. CL IN REACH, SRX2.
[2019-03-28 08:10] VITALS: BP 122/75
[2019-03-28 10:45] LABS: UDS - AMPHET NEGATIVE QUAL (NEGATIVE); UDS - BARB NEGATIVE QUAL (NEGATIVE); UDS - BENZO NEGATIVE QUAL (NEGATIVE); UDS - COCAINE NEGATIVE QUAL (NEGATIVE); UDS - OPIATE NEGATIVE QUAL (NEGATIVE); UDS - PCP NEGATIVE QUAL (NEGATIVE); UDS - THC NEGATIVE QUAL (NEGATIVE)
[2019-03-28 10:52] LABS: APPEARANCE CLEAR (CLEAR); BILIRUBIN NEGATIVE (NEGATIVE); COLOR STRAW (YELLOW); GLUCOSE 1000 mg/dL (NEGATIVE); KETONE NEGATIVE (NEGATIVE); NITRITE NEGATIVE (NEGATIVE); PROTEIN NEGATIVE (NEGATIVE); SPECIFIC GRAVITY 1.025 (1.005-1.020); UROBILINOGEN NORMAL (NORMAL)
--- NOTE | 2019-03-28 11:46 | NUR ---
PT C/O SEVERE MIGRAIN THIS MORNING, STATES THAT NOTHING SEEMS TO BE HELPING. PT STATES IT'S BETTER AFTER THE TORDOL. NO OTHER COMPLAINTS/CONCERNS/QUESTIONS OF THIS TIME. CL IN REACH, SRX2, LIGHTS OFF AND WINDOW BLINDS CLOSED.
[2019-03-28 12:15] VITALS: BP 128/72
--- NOTE | 2019-03-28 13:31 | NUR ---
CALLED INTO PTS ROOM, SHE STATES HER MIGRAIN IS WORSE NOW THAN EVER AND THAT SHE HAS THROWN UP MULTIPLE TIMES IN THE COMMODE. STATES SHE FLUSHED THE VOMMIT SO I HAVE NOT VISUALLY CONFIRMED. SPOKE WITH CARMENZA PEARCE, SHE STATED WE WOULDN'T GIVE OPIODS FOR A HEADACHE, BUT THAT SHE WOULD ORDER SOME MIGRAIN SPECIFIC MEDICATION. INFORMED PT. CL IN REACH, SRX2.
[2019-03-28 15:24] VITALS: BP 146/75
--- NOTE | 2019-03-28 16:55 | NUR ---
PT C/O GENERALIZED BODY ACHES AND ASKS IF SHE CAN HAVE SOMETHING FOR PAIN, WILL ASK STATES HEADACHE IS GETTING BETTER BUT THAT SHE WANTS TO REFUSE THE [id number] AT THIS TIME, BECAUSE SHE BELIEVES THAT IS WHAT WAS GIVING HER THE MIGRAIN. CL IN REACH, SRX2.
--- NOTE | 2019-03-28 18:37 | NUR ---
PT LYIGN IN BED, STATES SHE STILL FEELS TERRIBLE. PT HAS AGREED TO TAKE NEXT DOSE OF SOLUMEDROL AFTER PT EDUCATION. WE WILL GIVE IT WITH ZOFRAN IN AN ATTEMPT TO REGALADO OFF ANY ILL SIDE EFFECTS. NO COMPLAINTS/CONCERNS/QUESTIONS STATED AT THIS TIME. CL IN REACH, SRX2.
--- NOTE | 2019-03-28 19:45 | NUR ---
INITIAL ROUNDS AND ASSESSMENT COMPLETED. PT CRYING IN HER BED. C/O HEAD PAIN, THEN PAIN TO ABDOMEN, THEN PAIN TO LEGS. SHE RECIEVED A TYLENOL # 3 AT 1800 AND SHE STATES THAT WAS "A LONG TIME AGO". DISCUSSED PLAN OF CARE WITH PATIENT.
--- NOTE | 2019-03-28 20:20 | NUR ---
SPOKE WITH ANASTACIA GALLAGHER APN AND REPORTED ABDOMINAL PAIN/ NO BM X 3 WEEKS PER PT/THAT PT IS CRYING AND SAYING SHE HAS HAD PREVIOUS CONSTIPATION ISSUES. NEW ORDERS RECIEVED.
[2019-03-28 20:27] VITALS: BP 134/69
[2019-03-29] VITALS: BP 136/70
[2019-03-29 04:00] VITALS: BP 132/72
[2019-03-29 05:09] LABS: BASOPHILS 0 % (0-2); EOSINOPHILS 0 % (0-7); HEMATOCRIT 36.5 % (36.0-48.0); HEMOGLOBIN 12.3 g/dL (12-16); IMMATURE GRANULOCYTES 0.2 % (0-5); LYMPHOCYTES 7.1 % (15-50); MCH 29.8 pg (26.0-34.0); MCHC 33.7 g/dL (31.0-37.0); MCV 88.4 fL (80.0-100.0); MEAN PLATELET VOLUME 10.3 fL (7.4-10.4); MONOCYTES 2.2 % (2-11); NEUTROPHILS 90.5 % (40-80); PLATELET COUNT 180 10x3/uL (130-400); RBC 4.13 10x6/uL (4.00-5.40); RDW 14.1 % (11.5-14.5); WBC 15.4 10x3/uL (4.8-10.8)
[2019-03-29 05:23] LABS: CALC OSMOLALITY 281 mosm/kg (275-300); CALCIUM 8.6 mg/dL (8.5-10.1); CARBON DIOXIDE 23.9 mmol/L (21.0-32.0); CHLORIDE - SERUM 109 mmol/L (98-107); CREATININE - SERUM 0.8 mg/dL (0.6-1.3); GLUCOSE 140 mg/dL (74-106); POTASSIUM - SERUM 4.5 mmol/L (3.5-5.1); SODIUM 141 mmol/L (136-145); eGFR NON AFRICAN AMERICAN 81 mL/min (90-120)
[2019-03-29 05:24] LABS: UREA NITROGEN 10 mg/dL (7-18)
--- NOTE | 2019-03-29 07:42 | NUR ---
CALLED INTO PTS ROOM, SHE STATES SHE SLEP OK LAST NIGHT WHEN SHE FINALLY WENT TO SLEEP. PT REQUESTS A SHOWER, SHE HAD A SHOWER YESTERDAY MORNING, LAST NIGHT AT MIDNIGHT, AND AGAIN NOW. WILL PROVIDE SHOWER ITEMS. PT HAS NO C/O TROUBLE BREATHING OR RESPIRATORY ISSUES. BREATHS EVEN/REGULAR/UNLABORED. CL IN REACH, SRX2.
[2019-03-29 08:09] VITALS: BP 135/59
[2019-03-29 11:56] VITALS: BP 127/68
--- NOTE | 2019-03-29 13:03 | NUR ---
I have reviewed this patient and I concur with the Shift Assessment completed by the Licensed Practical Nurse today this shift.
--- NOTE | 2019-03-29 14:36 | NUR ---
DR. OROZCO SPOKE WITH THE PT, PT STATES SHE FEELS GOOD AND HIS HOPING TO GO HOME SOON. DR. OROZCO STATED PT IS CLEAR TO GO FROM HIS/PULMINOLOGY'S STANDPOINT. CL IN REACH, SRX2.
[2019-03-29 16:14] VITALS: BP 130/66
--- NOTE | 2019-03-29 16:16 | NUR ---
PT HAD A CONSULT WITH CARDIOLOGY YESTERDAY, THEY HAD NOT SEEN HER BUT DR. PICKARD IS WANTING TO D/C THE PT. I SPOKE TO DR. CEDENO VIA PHONE, HE STATED THAT SINCE SHE IS STABLE SHE CAN BE SEEN OUT PATIENT WITH A FOLLOW UP.
[2019-03-29] MEDS ORDERED: OMNICEF300 MG PO (16:38)
[2019-03-29] MEDS ORDERED: PREDNISONE10 MG PO (16:42)
--- NOTE | 2019-03-29 17:44 | NUR ---
PT AMBULATED OUT ON HER OWN OCCORD. REFUSED WHEELCHAIR. STATES SHE APPRECIATED THE CARE AND STAFF.
--- NOTE | 2019-03-30 09:38 | MORECARE ---
CASE MANAGEMENT DISCHARGE SUMMARY PATIENT: TEMO CLEMENTE UNIT: [id number] ADM DATE: 03/27/19 AGE: 48 : 70 SEX: F ROOM/BED: D.2112 AUTHOR: ANTONIA ULLOA PHYSICIAN: REFERRING PHYSICIAN: JULIETH AVALOS MD DATE OF SERVICE: 03/30/19 Discharge Plan Patient Name: TEMO CLEMENTE Facility: [facility]:[place] : 1970 Planned Disposition: Home Anticipated Discharge Date: 03/29/19 Discharge Date: 03/29/2019 Expected LOS: 2 Initial Reviewer: [email or web address] Initial Review Date: 03/30/2019 Generated: 03/30/19 10:38 am Patient Name: TEMO CLEMENTE Page [id number] at 0938 All edits/amendments must be made on the electronic document DICTATION DATE: 03/30/19937 RIP SAW OPERATOR: RK 03/30/19937 RPT#: [id number] DC DATE:03/29/19 STATUS: DIS IN [facility] [address] [facility] [place] [address] END OF REPORT
== END 2019-03-29 17:45 | disposition home or self-care (01) | DRG 190 ==
LOC: D.ER 15:53 → D.M2 21:13
PROVIDERS: Family Medicine; ADMIT Family Medicine; ATTEND Family Medicine
DX: J44.1 Chronic obstructive pulmonary disease with (acute) exacerbation (principal); E43 Unspecified severe protein-calorie malnutrition; J40 Bronchitis, not specified as acute or chronic; R09.1 Pleurisy; G25.81 Restless legs syndrome; Z86.73 Personal history of transient ischemic attack (TIA), and cerebral infarction without residual deficits; I70.209 Unspecified atherosclerosis of native arteries of extremities, unspecified extremity; I27.20 Pulmonary hypertension, unspecified; G47.00 Insomnia, unspecified; Z68.20 Body mass index [BMI] 20.0-20.9, adult

== ENCOUNTER → 2019-05-27 08:07 | Outpatient (CLI) | payer MEDICARE, MEDICAID ==
[2019-03-27 23:00] VITALS: BMI 17.9
[~2019-05-27 08:07] MED LIST changes: +OMNICEF300 MG PO; +PREDNISONE10 MG PO
== END | disposition home or self-care (01) ==
LOC: D.HCCARDIO 08:07
PROVIDERS: ATTEND Internal Medicine Cardiovascular Disease
DX: I20.9 Angina pectoris, unspecified (principal)

== ENCOUNTER 2019-09-24 01:28 | Emergency (ER) | payer MEDICARE, MEDICAID ==
[~2019-09-24] VITALS: Ht 172.7 cm; Wt 56.7 kg
[2019-09-24 01:33] VITALS: BP 101/75; Ht 172.7 cm; Wt 56.7 kg
== END 2019-09-24 01:58 | disposition home or self-care (01) ==
LOC: D.ER 01:28
DX: G25.81 Restless legs syndrome (principal); Z86.73 Personal history of transient ischemic attack (TIA), and cerebral infarction without residual deficits; I73.9 Peripheral vascular disease, unspecified; J44.9 Chronic obstructive pulmonary disease, unspecified; Z72.0 Tobacco use

== ENCOUNTER 2020-03-23 04:31 | Emergency (ER) | payer MEDICARE, MEDICAID ==
[~2020-03-23] VITALS: Ht 172.7 cm; Wt 54.5 kg
[2020-03-23 04:38] VITALS: BP 97/59; Ht 172.7 cm; Wt 54.5 kg
[2020-03-23] MEDS ORDERED: KLONOPIN1 MG PO (04:39)
== END 2020-03-23 05:23 | disposition home or self-care (01) ==
LOC: D.ER 04:31
DX: G25.81 Restless legs syndrome (principal); Z76.0 Encounter for issue of repeat prescription

== ENCOUNTER → 2020-04-26 13:16 | Outpatient (CLI) | payer MEDICARE ==
[2020-03-23 04:38] VITALS: BMI 18.2
[~2020-04-26 13:16] MED LIST changes: +KLONOPIN1 MG PO
== END | disposition home or self-care (01) ==
LOC: D.MAMMO 04-19 10:30
PROVIDERS: ATTEND Family Medicine
DX: C34.90 Malignant neoplasm of unspecified part of unspecified bronchus or lung (principal); C34.11 Malignant neoplasm of upper lobe, right bronchus or lung; R92.8 Other abnormal and inconclusive findings on diagnostic imaging of breast

== ENCOUNTER → 2020-05-06 07:47 | Outpatient (CLI) | payer MEDICARE ==
[2020-03-23 04:38] VITALS: BMI 18.2
== END | disposition home or self-care (01) ==
LOC: D.US 07:47
PROVIDERS: ATTEND Family Medicine
DX: N63.13 Unspecified lump in the right breast, lower outer quadrant (principal); R92.8 Other abnormal and inconclusive findings on diagnostic imaging of breast

== ENCOUNTER → 2020-11-10 15:31 | Outpatient (CLI) | payer MEDICARE ==
[2020-03-23 04:38] VITALS: BMI 18.2
== END | disposition home or self-care (01) ==
LOC: D.NM 15:31
PROVIDERS: ATTEND Family Medicine
DX: J44.9 Chronic obstructive pulmonary disease, unspecified (principal)